=== PATIENT | male | born 1935 | race Caucasian/White ===

== ENCOUNTER 2019-07-06 13:35 | Emergency (ER) | payer MEDICARE, SELFPAY ==
[2019-07-06] VITALS (19 sets, daily range): BP systolic 157–182; BP diastolic 58–76; PULSE 64–75; RESP 11–24; TEMP 36.8; O2SAT 97–100
--- NOTE | ~2019-07-06 | CT_ITS ---
EXAMINATION: CT brain wo con DATE: 07/06/2019 14:48 INDICATION: Syncope. Fall. Dizziness. TECHNIQUE: Computed tomography (CT) of the head was performed without intravenous contrast. The dose- length product was 681.00 mGy-cm. Automated exposure control and iterative reconstruction technique w ere employed. COMPARISON: CT dated 08/26/2018 FINDINGS: No acute intracranial hemorrhage, infarction, mass or mass effect. No ventriculomegaly or m idline shift. Basilar cisterns are patent. There are scattered mild periventricular and subcortical w darryl matter changes, most likely related to small vessel ischemic disease (microangiopathy). Mild gen eralized atrophy. There is mild ethmoid and right maxillary mucosal thickening. Mastoids are pneumati zed. No depressed skull fractures. IMPRESSION: 1. No acute intracranial abnormality. 2: Chronic age-related findings. Reviewed, dictated and finalized at location A.
--- NOTE | 2019-07-06 13:41 | ECG_ITS ---
Measurements Intervals [place] Rate: 71 P: 34 [place]: 180 QRS: -9 QRSD: 94 T: 21 QT: 392 QTc: 428 Interpretive Statements SINUS RHYTHM BASELINE WANDER- II, III, V4 NORMAL ECG Electronically Signed On 07-06-2019 14:05:23 CDT by Andrea Jones D.O.
[2019-07-06 14:04] LABS: Basophils Percent Auto 0.5 % (0.2-1.2); Eosinophils Absolute Auto 0.1 K/mm3 (0-0.3); Eosinophils Percent Auto 1.5 % (0-4.4); Hematocrit 33.4 % (42.0-52.0); Hemoglobin 11.2 g/dL (14.0-18.0); Immature Granulocyte Absolute 0.02 K/mm3 (0.00-0.031); Immature Granulocyte Percent A 0.3 % (0-0.5); Lymphocytes Absolute Auto 1.32 K/mm3 (0.9-3.2); Lymphocytes Percent Auto 20.3 % (18.3-44.2); Mean Corpuscular HGB Conc 33.5 g/dl (32-36); Mean Corpuscular Hemoglobin 33.9 pg (26-34); Mean Corpuscular Volume 101.2 fl (80-100); Mean Platelet Volume 10.9 fl (7.4-10.4); Monocytes Absolute Auto 0.7 K/mm3 (0.1-0.6); Monocytes Percent Auto 11.1 % (2.6-8.5); Neutrophils Absolute Auto 4.3 K/mm3 (1.3-6.7); Neutrophils Percent Auto 66.3 % (45.5-73.1); Platelet Count Result 209 k/mm3 (150-375); Red Cell Distribution Width 14.6 % (11.5-14.5); White Blood Count 6.5 K/mm3 (4.5-10.0)
--- NOTE | 2019-07-06 14:13 | ED.SYNCOPE ---
HPI - Syncope General Chief Complaint: Syncope Stated Complaint: Passed out Time Seen by Provider: 07/06/19 13:59 History of Present Illness HPI narrative: Patient presents with his granddaughter for fainting episode at home today. He has been having recurrent fainting episodes in the last month. His granddaughter attributes this to the recurrent diarrhea he has had in the last month. He only gets to the bathroom half of the time. He has had no fever nausea vomiting or abdominal pain with the diarrhea. He had no chest pain nausea shortness of breath or diaphoresis prior to fainting today. His granddaughter reports that he was sweating when she got him after he fainted today. He did not hurt himself he slumped against the wall and fell slowly to the floor. He has had dizziness in the last several months intermittently and this is getting worse. He has had no recent illness he had a slight injury couple days ago when he fell out of bed and bruised his right forearm. He has slight dementia. He has been getting increasingly weak and has a tremor that started a couple months ago. His a couple months ago and his granddaughter attributes his new symptoms to stress. He denies chest pain abdominal pain back pain muscle aches or sores. MD complaint: felt faint Onset (ago): hour(s) -: minutes(s) Description of event: incontinence Prodromal symptoms: lightheaded and vertigo Witnessed: No Context: standing up Injuries sustained associated with event: none Current symptoms: none Related Data Home Medications Medication Instructions Recorded Confirmed PreserVision AREDS-2 1 BYMOUTH BIDPC 07/06/19 loperamide 2 mg PRN 07/06/19 sertraline 25 mg PO DAILY 07/06/19 Allergies Allergy/AdvReac Type Severity Reaction Status Date / Time No Known Allergies Allergy Verified 07/06/19 15:24 Review of Systems Review of Systems: Narrative: CONSTITUTIONAL: Denies fever, chills, or sweats. EYES: Denies visual changes, redness, or discharge. ENT: Denies rhinorrhea, congestion, sore throat, or otalgia. CARDIOVASCULAR: Denies chest pain, palpitations, or edema. RESPIRATORY: Denies cough or dyspnea. GASTROINTESTINAL: Denies abdominal pain, nausea, vomiting, or diarrhea. GENITOURINARY: Denies dysuria or hematuria. SKIN: Denies rash or itching. MUSCULOSKELETAL: Denies back pain, joint pain, or myalgia. NEUROLOGIC: Denies headache, numbness, or weakness. PSYCHIATRIC: Denies anxiety or depression. Constitutional: Constitutional: Reports weakness Respiratory: Respiratory: Denies cough and Denies dyspnea Gastrointestinal: Gastrointestinal: Denies abdominal pain, Reports diarrhea and Denies nausea Genitourinary: Genitourinary: Reports urinary incontinence Musculoskeletal: Musculoskeletal: Denies back pain and Denies joint swelling Neurologic: Reports confusion, Reports dizziness, Reports syncope, Denies focal weakness and Reports weakness PMFSH Past Medical History Medical History Dementia Hypertension TIA (transient ischemic attack) Surgical History Surgical History History of cholecystectomy Hx of cataract surgery Family History Family History Mother Hypertension Family history of pancreatic cancer Social History Social History Smoking status: Never smoker Alcohol intake: current Drinks per week: 1 Substance use: never Substance use type: does not use Gender identity (if verbalized by the patient): Male Exam Narrative: Exam Narrative: GENERAL: Well-appearing, well-nourished, and in no acute distress. HEAD: Normocephalic, atraumatic. EYES: PERRLA and EOMI. ENT: Nares clear, no rhinorrhea or epistaxis. Mucous membranes moist. NECK: Supple. CHEST: Clear to auscultation. No respiratory distress. HEA
[2019-07-06 14:22] LABS: Blood Urea Nitrogen 24 mg/dL (9-20); Calcium 8.5 mg/dL (8.4-10.2); Carbon Dioxide 25 mmol/L (22-30); Chloride 108 mmol/L (98-107); Estimated CRCL calculation 35 ml/min; Estimated Glomerular Filt Rate 45; Glucose 92 mg/dL (75-110); Potassium 3.5 mmol/L (3.4-5.0); Sodium 139 mmol/L (137-145)
--- NOTE | 2019-07-06 14:41 | PC.NURSE ---
Pt states he was on the way to the lab and had syncopal episode. Pt states this is the second episode in the last month. Pt did not know he had blood in stool but when samples taken to lab they told him he had blood in his stool. Pt states he has been having diarrhea x 1 month. Pt is A&Ox4.Pt has call light in reach
[2019-07-06 16:03] LABS: Troponin I < 0.012 ng/mL (0.000-0.034)
== END 2019-07-06 16:33 | disposition home or self-care (01) ==
PROVIDERS: Emergency Medicine; Emergency Provider Emergency Medicine; PCP Family Medicine
DX: R55 Syncope and collapse (principal); R19.7 Diarrhea, unspecified; F03.90 Unspecified dementia, unspecified severity, without behavioral disturbance, psychotic disturbance, mood disturbance, and anxiety; R42 Dizziness and giddiness; I10 Essential (primary) hypertension; Z86.73 Personal history of transient ischemic attack (TIA), and cerebral infarction without residual deficits; Z98.49 Cataract extraction status, unspecified eye
CPT/HCPCS: 36415; 70450; 80048; 84484; 85025; 86850; 86900; 86901; 93005; 99284

== ENCOUNTER 2020-01-15 12:22 | Emergency (ER) | payer MEDICARE, SELFPAY ==
--- NOTE | ~2020-01-15 | XR_ITS ---
EXAMINATION: XR elbow LT min 3V DATE: 01/15/2020 13:11 INDICATION: Left elbow pain. TECHNIQUE: 4 views of left elbow were obtained. COMPARISON: None. FINDINGS: Bone alignment is normal. No fracture. Joint spaces are well maintained. There is an enthes ophyte at medial humeral epicondyle. There is no elbow joint effusion. IMPRESSION: 1. No fracture. Reviewed, dictated and finalized at location A. IMPRESSION: 1. No fracture.
--- NOTE | ~2020-01-15 | XR_ITS ---
EXAMINATION: XR hand LT min 3V DATE: 01/15/2020 13:11 INDICATION: Left hand pain. Fall. TECHNIQUE: 3 views of left hand were obtained. COMPARISON: None. FINDINGS: There is dorsal dislocation of first distal phalanx with respect to the proximal phalanx. N o fracture. 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 There is mild osteoarthrit is of most of the metacarpophalangeal joints and interphalangeal joints. There is moderate osteoarthr itis of second distal interphalangeal joint. IMPRESSION: 1. Dislocation of first interphalangeal joint. 2. Polyarticular osteoarthritis. Reviewed, dictated and finalized at location A.
--- NOTE | ~2020-01-15 | CT_ITS ---
EXAMINATION: CT brain wo con DATE: 01/15/2020 13:00 INDICATION: Status post fall. Confusion. TECHNIQUE: Computed tomography (CT) of the head was performed without intravenous contrast. The dose- length product was 605.33 mGy-cm. Automated exposure control and iterative reconstruction technique w ere employed. COMPARISON: CT dated 07/06/2019 FINDINGS: Mild generalized atrophy. 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 Basilar cistern s are patent. No acute intracranial hemorrhage, infarction, mass or mass effect. There is mild mucosa l thickening of the ethmoid air cells. Mastoids are pneumatized. No depressed skull fractures. There is intracranial atherosclerosis. IMPRESSION: 1. No acute intracranial abnormality. No significant change. Reviewed, dictated and finalized at location B.
--- NOTE | ~2020-01-15 | XR_ITS ---
EXAMINATION: XR finger 1st LT min 2V DATE: 01/15/2020 14:32 INDICATION: Left thumb dislocation status post reduction. TECHNIQUE: 2 views of left thumb were obtained. COMPARISON: Left hand radiographs at 1:04 PM FINDINGS: Bone alignment is normal. No fracture. There is severe osteoarthritis of first carpometacar pal joint. IMPRESSION: 1. Normal alignment of first interphalangeal joint status post reduction. Reviewed, dictated and finalized at location A.
[2020-01-15 12:34] VITALS: BP 205/81; PULSE 82; RESP 18; TEMP 36.4; O2SAT 99
--- NOTE | 2020-01-15 13:02 | ED.FALL ---
HPI - Fall General Chief Complaint: Fall <Aquiles Christopher MD - Last Filed: 01/15/20 14:59> Stated Complaint: fall <Aquiles Christopher MD - Last Filed: 01/15/20 14:59> Time Seen by Provider: 01/15/20 12:23 <Aquiles Christopher MD - Last Filed: 01/15/20 14:59> Source: patient <Aquiles Christopher MD - Last Filed: 01/15/20 14:59> Mode of arrival: ambulatory <Aquiles Christopher MD - Last Filed: 01/15/20 14:59> Limitations: no limitations <Aquiles Christopher MD - Last Filed: 01/15/20 14:59> History of Present Illness HPI Narrative: Patient is an 84-year-old male complaining of had pain, laceration to his left thumb and left elbow pain after he tripped and fall at home. Patient states that he tried to break his fall that is why he has a cut on his left hand. Patient was able to ambulate after the fall. Patient denies any neck pain, chest pain, back pain, pelvic pain, hip pain or any other extremity pain/injury. <Aquiles Christopher MD - Last Filed: 01/15/20 14:59> Related Data Home Medications: Home Medications Medication Instructions Recorded Confirmed PreserVision AREDS-2 1 BYMOUTH BID 07/06/19 12/08/19 fludrocortisone 0.1 mg tablet 0.1 mg PO DAILY 09/01/19 12/08/19 quetiapine 25 mg tablet 25 mg PO DAILY tablet 09/01/19 12/08/19 <Aquiles Christopher MD - Last Filed: 01/15/20 14:59> Allergies/Adverse Reactions: Allergies Allergy/AdvReac Type Severity Reaction Status Date / Time No Known Allergies Allergy Verified 12/08/19 11:07 <Aquiles Christopher MD - Last Filed: 01/15/20 14:59> Review of Systems Review of Systems: All systems reviewed & are unremarkable except as noted in HPI and below <Aquiles Christopher MD - Last Filed: 01/15/20 14:59> Constitutional: Constitutional: Denies body ache(s), Denies chills, Denies excessive sweating, Denies fatigue, Denies fever(s), Denies headache(s), Denies lethargy, Denies malaise, Denies weakness and Denies weight loss <Aquiles Christopher MD - Last Filed: 01/15/20 14:59> Eyes: Eyes: Denies blurry vision, Denies change in vision and Denies loss of vision <Aquiles Christopher MD - Last Filed: 01/15/20 14:59> ENT: Denies dizziness, Denies ear discharge, Denies headache(s), Denies lip swelling, Denies epistaxis, Denies nasal congestion, Denies neck pain, Denies throat swelling and Denies tongue swelling <Aquiles Christopher MD - Last Filed: 01/15/20 14:59> Cardiovascular: Cardiovascular: Denies chest pain, Denies chest pain at rest, Denies chest pain with activity, Denies diaphoresis, Denies rapid heart rate, Denies edema, Denies irregular heart rhythm, Denies lightheadedness, Denies palpitations, Denies dyspnea and Denies dyspnea on exertion <Aquiles Christopher MD - Last Filed: 01/15/20 14:59> Respiratory: Respiratory: Denies chest congestion, Denies cough, Denies hemoptysis, Denies dyspnea and Denies dyspnea on exertion <Aquiles Christopher MD - Last Filed: 01/15/20 14:59> Gastrointestinal: Gastrointestinal: Denies abdominal pain, Denies melena, Denies hematochezia, Denies diarrhea, Denies nausea, Denies vomiting and Denies hematemesis <Aquiles Christopher MD - Last Filed: 01/15/20 14:59> Musculoskeletal: Musculoskeletal: Denies abnormal gait, Denies deformity, Denies joint swelling, Denies limited range of motion, Denies neck pain and Denies numbness <Aquiles Christopher MD - Last Filed: 01/15/20 14:59> Neurologic: Denies Abnormal speech present, Denies abnormal gait, Denies confusion, Denies dizziness, Denies headache(s), Denies focal weakness, Denies loss of vision, Denies numbness, Denies Other visual disturbances, Denies Sensory deficit (Neuro) and Denies weakness <Aquiles Christopher MD - Last Filed: 01/15/20 14:59> Psychiatric: Psychiatric: Denies confusion, Denies depression, Denies auditory hallucinations, Denies homicidal ideation and Denies suicidal ideation <Aquiles Christopher MD - Last Filed: 01/15/20 14:59> Endoc
[2020-01-15] MEDS: TETANUS,DIPHTHERIA,AC PERTUSSIS ADULT (0.5 ML) BOOSTRIX IM (13:12)
== END 2020-01-15 15:24 | disposition home or self-care (01) ==
LOC: ANHED 12:37
PROVIDERS: Emergency Provider Emergency Medicine; PCP Family Medicine
DX: S63.125A Dislocation of interphalangeal joint of left thumb, initial encounter (principal); S61.012A Laceration without foreign body of left thumb without damage to nail, initial encounter; S09.90XA Unspecified injury of head, initial encounter; Z86.73 Personal history of transient ischemic attack (TIA), and cerebral infarction without residual deficits; F03.90 Unspecified dementia, unspecified severity, without behavioral disturbance, psychotic disturbance, mood disturbance, and anxiety; I10 Essential (primary) hypertension; Z98.49 Cataract extraction status, unspecified eye; Z23 Encounter for immunization; W01.0XXA Fall on same level from slipping, tripping and stumbling without subsequent striking against object, initial encounter
CPT/HCPCS: 12001; 26770; 70450; 73080; 73130; 73140; 90471; 90715; 99285

== ENCOUNTER 2020-02-01 10:26 | Emergency (ER) | payer MEDICARE, SELFPAY ==
[2020-02-01 10:33] VITALS: BP 199/76; PULSE 86; RESP 16; TEMP 36.6; O2SAT 98
--- NOTE | 2020-02-01 10:53 | ED.WOUNDLAC ---
HPI - Wound/Laceration General Chief Complaint: Wound/Laceration Stated Complaint: remove stitches Source: patient Mode of arrival: ambulatory Limitations: no limitations History of Present Illness HPI narrative: Patient is an 84-year-old male who presents with request of suture removal. Patient reports sutures placed in left thumb on 01/14 after injuring hand. Wound is well-healed, 5 sutures in thumb. He denies pain. He denies other complaints. Related Data Home Medications Medication Instructions Recorded Confirmed fludrocortisone 0.1 mg tablet 0.1 mg PO DAILY 09/01/19 02/01/20 quetiapine 25 mg tablet 25 mg PO 1800 tablet 09/01/19 02/01/20 lisinopril 5 mg PO DAILY 02/01/20 02/01/20 Allergies Allergy/AdvReac Type Severity Reaction Status Date / Time No Known Allergies Allergy Verified 02/01/20 10:43 Review of Systems Review of Systems: Narrative: CONSTITUTIONAL: Denies fever, chills, or sweats. EYES: Denies visual changes, redness, or discharge. ENT: Denies rhinorrhea, congestion, sore throat, or otalgia. CARDIOVASCULAR: Denies chest pain, palpitations, or edema. RESPIRATORY: Denies cough or dyspnea. GASTROINTESTINAL: Denies abdominal pain, nausea, vomiting, or diarrhea. GENITOURINARY: Denies dysuria or hematuria. SKIN: Sutures in left thumb MUSCULOSKELETAL: Denies back pain, joint pain, or myalgia. NEUROLOGIC: Denies headache, numbness, dizziness, or weakness. PSYCHIATRIC: Denies anxiety or depression. [facility] Past Medical History Medical History (Updated 02/01/20 @ 10:59 by MATY Phelan) Dementia Hypertension TIA (transient ischemic attack) Surgical History Surgical History History of cholecystectomy Hx of cataract surgery Family History Family History Mother Hypertension Family history of pancreatic cancer Social History Social History Smoking status: Never smoker Alcohol intake: current Drinks per week: 1 Substance use: never Substance use type: does not use Gender identity (if verbalized by the patient): Male Exam Narrative: Exam Narrative: GENERAL: Well-appearing, well-nourished, and in no acute distress. HEAD: Normocephalic, atraumatic. EYES: No redness or drainage. ENT: Mucous membranes pink and moist. CHEST: No respiratory distress. s. EXTREMITIES: Normal range of motion. No edema. SKIN: 5 sutures removed from left thumb, wound well-healed, no erythema or tenderness, good capillary refill NEURO: No focal deficits. Alert and oriented x3. Gait steady. PSYCH: Normal affect. No signs of depression or anxiety. Course Vital Signs Vital signs: Vital Signs Temperature 36.6 C 02/01/20 10:33 Pulse Rate 86 02/01/20 10:33 Respiratory Rate 16 02/01/20 10:33 Blood Pressure 199/76 H 02/01/20 10:33 Pulse Oximetry 98 02/01/20 10:33 Temperature 36.6 C 02/01/20 10:33 Pulse Rate 86 02/01/20 10:33 Respiratory Rate 16 02/01/20 10:33 Blood Pressure 199/76 H 02/01/20 10:33 Pulse Oximetry 98 02/01/20 10:33 Reviewed. Patient has been instructed to follow-up with his PCP regarding his blood pressure. Procedures Other Procedure Procedure 1: Other Procedure: 5 sutures removed from left thumb, wound well-healed this time, good capillary refill. MDM - Wound/Laceration MDM Narrative Medical decision making narrative: Sutures removed to left thumb at this time. Patient's wound is well-healed. Good capillary refill. Patient denies pain. Patient is stable for discharge to home with outpatient follow-up as needed. Critical Care Time Critical Care Time Critical Care Time: No Discharge Plan Discharge Clinical Impression: Visit for suture removal Patient Disposition: Home, Self-Care Condition: Stable Instructions: Antibiotic Form Additional Instructio
== END 2020-02-01 11:03 | disposition home or self-care (01) ==
PROVIDERS: Emergency Provider Nurse Practitioner
DX: S61.012D Laceration without foreign body of left thumb without damage to nail, subsequent encounter (principal); X58.XXXD Exposure to other specified factors, subsequent encounter; F03.90 Unspecified dementia, unspecified severity, without behavioral disturbance, psychotic disturbance, mood disturbance, and anxiety; I10 Essential (primary) hypertension; Z86.73 Personal history of transient ischemic attack (TIA), and cerebral infarction without residual deficits
CPT/HCPCS: 99211; G0463

== ENCOUNTER 2020-03-25 12:47 | Emergency (ER) | payer MEDICARE, SELFPAY ==
--- NOTE | ~2020-03-25 | CT_ITS ---
EXAMINATION: CT brain wo con DATE: 03/25/2020 13:37 INDICATION: Head injury post fall on ice TECHNIQUE: Computed tomography (CT) of the head was performed without intravenous contrast. Sagittal and coronal reconstructions were performed. Automated exposure control and iterative reconstruction t echnique were employed. The dose-length product was 681.00 mGy-cm. COMPARISON: head CT dated 01/15/2020 FINDINGS: No fracture. No acute intracranial hemorrhage, acute infarction or abnormal extra axial fluid collect ion. There is mild scattered white matter hypoattenuation consistent with chronic small vessel ischem ic disease. Symmetric prominence of the sulci consistent with mild to moderate age-appropriate diffus e cerebral volume loss. Ventricles are normal and symmetric. No mass/mass effect. Changes of bilatera l intraocular lens replacement. The orbits and mastoid air cells are normal. Thickened sclerotic wall s of the right maxillary sinus consistent with chronic sinusitis. IMPRESSION: 1. No fracture or acute intracranial process. 2. Age-related changes including mild to moderate diffuse volume loss and mild scattered white matter hypoattenuation consistent with chronic small vessels ischemic disease. Reviewed, dictated and finalized at location A. LE CLEANER IMPRESSION: 1. No fracture or acute intracranial process. 2. Age-related changes including mild to moderate diffuse volume loss and mild scattered white matter hypoattenuation consistent with chronic small vessels is chemic disease.
--- NOTE | ~2020-03-25 | CT_ITS ---
EXAMINATION: CT cervical spine wo con DATE: 03/25/2020 13:37 INDICATION: Fall with head injury TECHNIQUE: Computed tomography (CT) of the cervical spine was performed without intravenous contrast. Automated exposure control and iterative reconstruction technique were employed. The dose-length pro duct was 544.78 mGy-cm. COMPARISON: None FINDINGS: Straightening of the normal cervical lordosis. Vertebral body heights are normal. No acute fracture. Severe disc height loss with both anterior and bilateral posterior spinal fusion at C6-C7. Additional severe disc height loss at C5-C6 with severe bilateral uncovertebral osteoarthritis. Mild disc heigh t loss at C2-C3 through C4-C5 and at C7-T1. Additional bilateral anterior and posterior spinal fusion at C3-C4 and fusion across the right facet joint at C4-C5. Mild central canal stenosis resulting fro m posterior disc osteophyte complex at C5-C6. Moderate to severe facet osteoarthritis at the remainin g unfused cervical facet joints. Mild to moderate bilateral neural foraminal stenosis most prominent on the right at C6-7 and bilaterally at C5-C6. Multiple tiny calcifications at the left and right sub mandibular regions likely representing sialoliths within atrophic bilateral submandibular glands. Lik saw benign subcentimeter low-attenuation right thyroid nodule. Cervical soft tissues are otherwise un remarkable. Visualized apices of the lungs are clear. IMPRESSION: 1. Severe cervical spondylosis. No acute osseous abnormality. Reviewed, dictated and finalized at location A. ER TAPER
[2020-03-25 13:08] VITALS: BP 183/86; PULSE 82; RESP 18; TEMP 36.5; O2SAT 100
[2020-03-25 14:01] VITALS: BP 230/84; PULSE 84; RESP 16; O2SAT 99
--- NOTE | 2020-03-25 14:34 | ECG_ITS ---
Measurements Intervals [place] Rate: 86 P: 10 NV: 190 QRS: -10 QRSD: 99 T: -1 QT: 380 QTc: 455 Interpretive Statements SINUS RHYTHM DELAYED PRECORDIAL R/S TRANSITION BORDERLINE T WAVE ABNORMALITY- INFERIOR LEADS BASELINE ARTIFACT- I, II, AVL, V3-V6 BORDERLINE ECG Electronically Signed On 03-25-2020 15:21:29 BAIT PAINTER by Andrea Jones D.O.
[2020-03-25 15:10] LABS: Basophils Percent Auto 0.6 % (0.2-1.2); Eosinophils Absolute Auto 0.2 K/mm3 (0-0.3); Eosinophils Percent Auto 2.7 % (0-4.4); Hematocrit 30.6 % (42.0-52.0); Hemoglobin 10.5 g/dL (14.0-18.0); Immature Granulocyte Absolute 0.01 K/mm3 (0.00-0.031); Immature Granulocyte Percent A 0.2 % (0-0.5); Lymphocytes Percent Auto 49.8 % (18.3-44.2); Mean Corpuscular HGB Conc 34.3 g/dl (32-36); Mean Corpuscular Hemoglobin 34.3 pg (26-34); Mean Platelet Volume 10.6 fl (7.4-10.4); Monocytes Absolute Auto 0.4 K/mm3 (0.1-0.6); Monocytes Percent Auto 6.3 % (2.6-8.5); Neutrophils Absolute Auto 2.7 K/mm3 (1.3-6.7); Neutrophils Percent Auto 40.4 % (45.5-73.1); Platelet Count Result 237 k/mm3 (150-375); Red Blood Count 3.06 M/mm3 (4.6-6.20); White Blood Count 6.6 K/mm3 (4.5-10.0)
[2020-03-25 15:21] VITALS: BP 228/89; PULSE 93; RESP 18; O2SAT 100
[2020-03-25 15:24] LABS: Anion Gap 6 mmol/L (8-16); Blood Urea Nitrogen 21 mg/dL (9-20); Calcium 8.9 mg/dL (8.4-10.2); Carbon Dioxide 27 mmol/L (22-30); Chloride 108 mmol/L (98-107); Estimated CRCL calculation 46 ml/min; Estimated Glomerular Filt Rate > 60; Glucose 102 mg/dL (75-110); Sodium 141 mmol/L (137-145)
[2020-03-25] MEDS: hydrALAZINE HCL 20 MG/ML VIAL 10 MG IV PUSH (15:24)
[2020-03-25 15:34] LABS: Troponin I < 0.012 ng/mL (0.000-0.034)
[2020-03-25 16:05] VITALS: BP 184/86; PULSE 78; RESP 18; O2SAT 100
--- NOTE | 2020-03-25 16:31 | ED.GENADULT ---
HPI - General Adult General Chief complaint: Fall Stated complaint: fall on ice Time Seen by Provider: 03/25/20 14:06 History of Present Illness HPI narrative: Patient is an 84-year-old male who presents ER after falling in his front yard. He took his dog out to use the restroom. It was reported that he struck his head. No reported loss of consciousness. No obvious trauma. Patient has dementia and has difficulty giving a history. He denies any pain at this time. He does report that he felt like he had a corn husk stuck in his throat earlier but is now gone. His blood pressure is elevated. He denies taking his home medications this morning. Related Data Home Medications Medication Instructions Recorded Confirmed fludrocortisone 0.1 mg tablet 0.1 mg PO DAILY 09/01/19 03/23/20 quetiapine 25 mg tablet 25 mg PO 1800 tablet 09/01/19 03/23/20 lisinopril 5 mg PO DAILY 02/01/20 03/23/20 Allergies Allergy/AdvReac Type Severity Reaction Status Date / Time No Known Allergies Allergy Verified 02/02/20 10:57 Review of Systems Review of Systems: ROS unobtainable: Yes unobtainable due to mental status PMFSH Past Medical History Medical History (Updated 03/25/20 @ 16:39 by Ag Mchugh MD) Dementia Hypertension TIA (transient ischemic attack) Weight loss Surgical History Surgical History History of cholecystectomy Hx of cataract surgery Family History Family History Mother Hypertension Family history of pancreatic cancer Social History Social History Smoking status: Never smoker Alcohol intake: current Drinks per week: 1 Substance use: never Substance use type: does not use Gender identity (if verbalized by the patient): Male Exam Narrative: Exam Narrative: GENERAL: Well-appearing, well-nourished, and in no acute distress. HEAD: Normocephalic, atraumatic. EYES: PERRL and EOMI. ENT: Mucous membranes moist. CHEST: Clear to auscultation. No respiratory distress. HEART: Regular rate and rhythm. Normal peripheral pulses. EXTREMITIES: Normal range of motion. No edema. NEURO: Alert and oriented x2. PSYCH: Normal mood and affect. Course Course Emergency Course: Unremarkable work-up. Blood pressure improved with some hydralazine. Recommend taking home meds. Needs follow-up with PCP as it appears he has chronically elevated blood pressures. Vital Signs Vital signs: Vital Signs Temperature 97.7 F 03/25/20 13:08 Pulse Rate 82 03/25/20 13:08 Respiratory Rate 18 03/25/20 13:08 Blood Pressure 183/86 H 03/25/20 13:08 Pulse Oximetry 100 03/25/20 13:08 Temperature 97.7 F 03/25/20 13:08 Pulse Rate 78 03/25/20 16:05 Respiratory Rate 18 03/25/20 16:05 Blood Pressure 184/86 H 03/25/20 16:05 Pulse Oximetry 100 03/25/20 16:05 Medical Decision Making Vital Signs Vital Signs: Vital Signs Temperature 97.7 F 03/25/20 13:08 Pulse Rate 82 03/25/20 13:08 Respiratory Rate 18 03/25/20 13:08 Blood Pressure 183/86 H 03/25/20 13:08 Pulse Oximetry 100 03/25/20 13:08 Temperature 97.7 F 03/25/20 13:08 Pulse Rate 78 03/25/20 16:05 Respiratory Rate 18 03/25/20 16:05 Blood Pressure 184/86 H 03/25/20 16:05 Pulse Oximetry 100 03/25/20 16:05 Lab Data Result diagrams: 03/25/20 15:00 03/25/20 15:00 Labs: Lab Results 03/25/20 03/25/20 Range/Units 15:00 15:00 WBC 6.6 (4.5-10.0) K/mm3 RBC 3.06 L (4.6-6.20) M/mm3 Hgb 10.5 L (14.0-18.0) g/dL Hct 30.6 L (42.0-52.0) % MCV 100.0 (80-100) fl MCH 34.3 H (26-34) pg MCHC 34.3 (32-36) g/dl RDW 16.0 H (11.5-14.5) % Plt Count 237 (150-375) k/mm3 MPV 10.6 H (7.4-10.4) fl Immature Gran % (Auto) 0.2 (0-0.5) % Neut % (Auto) 40.4 L (45.5-73.1) % Lymph % (A
[2020-03-25 17:11] VITALS: BP 184/76; PULSE 78; RESP 16; O2SAT 98
== END 2020-03-25 17:12 | disposition home or self-care (01) ==
PROVIDERS: Emergency Provider Emergency Medicine
DX: I10 Essential (primary) hypertension (principal); S09.90XA Unspecified injury of head, initial encounter; F03.90 Unspecified dementia, unspecified severity, without behavioral disturbance, psychotic disturbance, mood disturbance, and anxiety; Z86.73 Personal history of transient ischemic attack (TIA), and cerebral infarction without residual deficits; Z98.49 Cataract extraction status, unspecified eye; M47.812 Spondylosis without myelopathy or radiculopathy, cervical region; R94.31 Abnormal electrocardiogram [ECG] [EKG]; W00.0XXA Fall on same level due to ice and snow, initial encounter
CPT/HCPCS: 36415; 70450; 72125; 80048; 84484; 85025; 93005; 96374; 99284; J0360

== ENCOUNTER 2020-03-25 19:51 | Inpatient (IN) | payer MEDICARE, SELFPAY ==
[2020-03-25] VITALS (20 sets, daily range): BP systolic 103–169; BP diastolic 53–70; PULSE 65–88; RESP 13–20; TEMP 36.6–36.8; O2SAT 96–100; BMI 24.1
--- NOTE | ~2020-03-25 | XR_ITS ---
EXAMINATION: XR chest 2V DATE: 03/25/2020 20:20 INDICATION: Transient alteration of awareness, hypertension TECHNIQUE: AP and lateral views of the chest are obtained. COMPARISON: 08/26/2018 FINDINGS: The lungs are free of acute opacities. There is no pleural effusion or pneumothorax. The ca rdiomediastinal silhouette is normal. There are bridging osteophytes at multiple levels in the spine, consistent with diffuse idiopathic skeletal hyperostosis (DISH). IMPRESSION: 1. No acute cardiopulmonary abnormality. Reviewed, dictated and finalized at location A. MANUFACTURING LEADER
--- NOTE | ~2020-03-25 | CT_ITS ---
EXAMINATION: CT brain wo con DATE: 03/26/2020 04:04 INDICATION: Head trauma. Syncope. TECHNIQUE: Computed tomography (CT) of the head was performed without intravenous contrast. Sagittal and coronal reconstructions were performed. The mA was adjusted according to patient size. Iterative reconstruction technique was employed. The dose-length product was 681.00 mGy-cm. COMPARISON: head CT dated 03/25/2020 FINDINGS: No acute intracranial hemorrhage, acute infarction or abnormal extra axial fluid collection. There is mild scattered white matter hypoattenuation consistent with chronic small vessel ischemic disease. S ymmetric prominence of the sulci consistent with mild to moderate age-appropriate diffuse cerebral vo lume loss. Ventricles are normal and symmetric. No mass/mass effect. Changes of bilateral intraocular lens replacement. The orbits and mastoid air cells are normal. Mild mucosal thickening in the right maxillary sinus with demonstrates thickened sclerotic smith consistent with chronic sinusitis and wit h resection of portion of the medial wall. IMPRESSION: 1. No acute intracranial process. 2. Age-related changes including age-appropriate mild to moderate diffuse volume loss and mild scatte red white matter hypoattenuation consistent with chronic small vessel ischemic disease. Reviewed, dictated and finalized at location A. PT READER IMPRESSION: 1. No acute intracranial process. 2. Age-related changes including age-appropriate mild to moderate diffuse volum e loss and mild scattered white matter hypoattenuation consistent with chronic small vessel ischemic disease.
--- NOTE | 2020-03-25 20:01 | ECG_ITS ---
Measurements Intervals [place] Rate: 68 P: 9 WV: 151 QRS: -8 QRSD: 106 T: -9 QT: 431 QTc: 459 Interpretive Statements SINUS RHYTHM VENTRICULAR PREMATURE COMPLEX T WAVE ABNORMALITY IN ANTEROLATERAL LEADS- CONSIDER ISCHEMIA BASELINE ARTIFACT- I, II, III, AVR, AVL, AVF, V1-V3 ABNORMAL ECG Electronically Signed On 03-26-2020 7:12:50 SHAFTING WORKER by Andrea Jones D.O.
--- NOTE | 2020-03-25 20:13 | PC.NURSE ---
Patient being taken to xray.
[2020-03-25] MEDS: SODIUM CHLORIDE 0.9% IV 1,000 ML 999 ML IV CONT (20:20)
[2020-03-25 20:53] LABS: Basophils Percent Auto 0.4 % (0.2-1.2); Eosinophils Absolute Auto 0.1 K/mm3 (0-0.3); Hematocrit 28.6 % (42.0-52.0); Hemoglobin 9.8 g/dL (14.0-18.0); Immature Granulocyte Absolute 0.01 K/mm3 (0.00-0.031); Immature Granulocyte Percent A 0.1 % (0-0.5); Lymphocytes Percent Auto 33.8 % (18.3-44.2); Mean Corpuscular HGB Conc 34.3 g/dl (32-36); Mean Corpuscular Volume 102.1 fl (80-100); Mean Platelet Volume 10.4 fl (7.4-10.4); Monocytes Absolute Auto 0.6 K/mm3 (0.1-0.6); Monocytes Percent Auto 8.6 % (2.6-8.5); Neutrophils Absolute Auto 3.9 K/mm3 (1.3-6.7); Neutrophils Percent Auto 55.1 % (45.5-73.1); Platelet Count Result 229 k/mm3 (150-375); Red Cell Distribution Width 15.9 % (11.5-14.5); White Blood Count 7.1 K/mm3 (4.5-10.0)
[2020-03-25 21:05] LABS: Anion Gap 4 mmol/L (8-16); Blood Urea Nitrogen 22 mg/dL (9-20); Calcium 8.3 mg/dL (8.4-10.2); Carbon Dioxide 29 mmol/L (22-30); Chloride 108 mmol/L (98-107); Estimated Glomerular Filt Rate > 60; Glucose 147 mg/dL (75-110); Potassium 3.6 mmol/L (3.4-5.0); Sodium 141 mmol/L (137-145)
[2020-03-25 21:18] LABS: Troponin I 0.015 ng/mL (0.000-0.034)
--- NOTE | 2020-03-25 21:29 | ED.GENADULT ---
HPI - General Adult General Chief complaint: Syncope Stated complaint: fall Time Seen by Provider: 03/25/20 20:01 History of Present Illness HPI narrative: Patient is an 84-year-old male who presents ER with syncope at home. Per patient's son patient was walking at their house when he began having dizziness. Reported he was feeling dizzy and son could tell he was unsteady. He sat down in a chair. Reports he tried to wait it out and they stood up again and he got even more unsteady and sat down and lost consciousness for 15 to 20 minutes. Son was scared that he was dying. Patient reported no pain prior to that point. Patient been seen earlier in the day after a slip and fall while outside. He was found to be hypertensive initially received some hydralazine prior to being discharged. Related Data Home Medications Medication Instructions Recorded Confirmed fludrocortisone 0.1 mg tablet 0.1 mg PO DAILY 09/01/19 03/23/20 quetiapine 25 mg tablet 25 mg PO 1800 tablet 09/01/19 03/23/20 lisinopril 5 mg PO DAILY 02/01/20 03/23/20 Allergies Allergy/AdvReac Type Severity Reaction Status Date / Time No Known Allergies Allergy Verified 03/25/20 20:02 Review of Systems Review of Systems: ROS unobtainable: Yes unobtainable due to mental status (dementia) PMFSH Past Medical History Medical History (Updated 03/25/20 @ 23:13 by Ag Mchugh MD) Dementia Hypertension TIA (transient ischemic attack) Weight loss Surgical History Surgical History History of cholecystectomy Hx of cataract surgery Family History Family History Mother Hypertension Family history of pancreatic cancer Social History Social History Smoking status: Never smoker Alcohol intake: never Drinks per week: 1 Substance use: never Substance use type: does not use Gender identity (if verbalized by the patient): Male Spiritual care concerns: No Exam Narrative: Exam Narrative: GENERAL: Well-appearing, well-nourished, and in no acute distress. HEAD: Normocephalic, atraumatic. EYES: PERRL and EOMI. CHEST: Clear to auscultation. No respiratory distress. HEART: Regular rate and rhythm. Normal peripheral pulses. ABDOMEN: Soft, nontender, nondistended. EXTREMITIES: Normal range of motion. No edema. SKIN: Warm, dry, no rash. NEURO: Alert and oriented x2-3. Course Course Emergency Course: Admit for observation. Vital Signs Vital signs: Vital Signs Temperature 97.8 F 03/25/20 19:51 Pulse Rate 72 03/25/20 19:51 Respiratory Rate 17 03/25/20 19:51 Blood Pressure 162/63 H 03/25/20 19:51 Pulse Oximetry 96 03/25/20 19:51 Temperature 97.9 F 03/25/20 22:44 Pulse Rate 76 03/25/20 22:44 Respiratory Rate 19 03/25/20 22:44 Blood Pressure 169/56 H 03/25/20 22:44 Pulse Oximetry 100 03/25/20 22:44 Medical Decision Making Vital Signs Vital Signs: Vital Signs Temperature 97.8 F 03/25/20 19:51 Pulse Rate 72 03/25/20 19:51 Respiratory Rate 17 03/25/20 19:51 Blood Pressure 162/63 H 03/25/20 19:51 Pulse Oximetry 96 03/25/20 19:51 Temperature 97.9 F 03/25/20 22:44 Pulse Rate 76 03/25/20 22:44 Respiratory Rate 19 03/25/20 22:44 Blood Pressure 169/56 H 03/25/20 22:44 Pulse Oximetry 100 03/25/20 22:44 Lab Data Result diagrams: 03/25/20 20:47 03/25/20 20:47 Labs: Lab Results 03/25/20 03/25/20 03/25/20 Range/Units 20:47 20:47 20:47 WBC 7.1 (4.5-10.0) K/mm3 RBC 2.80 L (4.6-6.20) M/mm3 Hgb 9.8 L (14.0-18.0) g/dL Hct 28.6 L (42.0-52.0) % MCV 102.1 H (80-100) fl MCH 35.0 H (26-34) pg MCHC 34.3 (32-36) g/dl RDW 15.9 H (11.5-14.5) % Plt Count 229 (150-375) k/mm3 MPV 10.4 (7.4-10.4) fl Immature Gran % (Auto) 0.1 (0-0.5
--- NOTE | 2020-03-25 22:57 | ADMGEN ---
This patient, Lico Calix, was admitted to Medical Room 245-. Patient/family oriented to hospital policies and general routines including ID bracelet, bed and alarms, visiting hours, pain management, procedures, bathroom and other care routines, personal items, smoking policy, room service/diet, and visiting hours. Information on how to activate the Rapid Response Team has been discussed. Patient/Family are encouraged to report perceived risks to care and to ask questions if they do not understand what they are told or what they should do.
[2020-03-26] VITALS (13 sets, daily range): BP systolic 102–187; BP diastolic 51–78; PULSE 79–104; RESP 15–20; TEMP 36.5–37.1; O2SAT 96–100
--- NOTE | 2020-03-26 01:57 | PM.IMHP ---
H&P: HPI History of Present Illness Date/Time: 03/26/20 01:57 Chief Complaint: Syncope Narrative: This is a pleasantly demented 84-year-old male with known chronic hypertension, hyperlipidemia, and depression who presented to the hospital this evening with an episode of syncope that occurred at home. Apparently the patient became dizzy at home sat in a chair and when he attempted to stand up he became very lightheaded and passed out for approximately 15 minutes. The patient's son who was the primary source of history related that he called EMS as he thought the patient was dying. The patient's history significant for him suffering a fall earlier yesterday during the day and suffered head trauma at that time. The patient was seen in the ER earlier yesterday and did have a CT scan done of his brain which was unremarkable at that time. Patient was treated with an IV fluid bolus this evening and we were asked to admit the patient to the hospital as he did not seem safe to go home this evening. On my encounter with the patient he is pleasantly confused and is only oriented to himself. He believes that he is currently in a motel and cannot answer any of my questions reliably. He has no complaints at this time. Review of Systems Review of Systems: All systems reviewed & are unremarkable except as noted in HPI and below PMFSH Past Medical History Medical History (Updated 03/26/20 @ 02:09 by Paulo Thomas MD) Dementia Hypertension TIA (transient ischemic attack) Weight loss Surgical History Surgical History History of cholecystectomy Hx of cataract surgery Family History Family History Mother Hypertension Family history of pancreatic cancer Social History Social History Smoking status: Never smoker Alcohol intake: never Drinks per week: 1 Substance use: never Substance use type: does not use Gender identity (if verbalized by the patient): Male Spiritual care concerns: No Meds Home Medications and Allergies Home Medications Medication Instructions Recorded Confirmed Type fludrocortisone 0.1 mg tablet 0.1 mg PO DAILY 09/01/19 03/25/20 History quetiapine 25 mg tablet 25 mg PO 1800 tablet 09/01/19 03/25/20 History atorvastatin 10 mg tablet 10 mg PO DAILY #90 tablet 10/13/19 03/25/20 Rx donepezil 5 mg tablet 5 mg PO HS #90 tablet 10/13/19 03/25/20 Rx omeprazole 40 mg capsule,delayed 40 mg PO DAILY #90 cap 10/13/19 03/25/20 Rx release sertraline 25 mg tablet 12.5 mg PO DAILY #45 tablet 10/13/19 03/25/20 Rx lisinopril 5 mg PO DAILY 02/01/20 03/25/20 History Allergies Allergy/AdvReac Type Severity Reaction Status Date / Time No Known Allergies Allergy Verified 03/26/20 00:11 Vital Signs Vital Signs - 24 hr 03/25/20 19:51 03/25/20 20:06 03/25/20 20:07 Temperature 36.6 C Pulse Rate 72 65 80 Respiratory Rate 17 15 Blood Pressure 162/63 H 168/68 H 103/53 L Pulse Oximetry 96 100 03/25/20 20:09 03/25/20 20:12 03/25/20 20:13 Temperature Pulse Rate 77 74 81 Respiratory Rate 13 20 20 Blood Pressure 168/68 H 140/54 L 103/53 L Pulse Oximetry 100 99 100 03/25/20 20:24 03/25/20 20:30 03/25/20 20:47 Temperature Pulse Rate 73 74 80 Respiratory Rate 20 16 18 Blood Pressure Pulse Oximetry 03/25/20 21:00 03/25/20 21:01 03/25/20 21:15 Temperature Pulse Rate 79 77 73 Respiratory Rate 17 13 14 Blood Pressure 167/63 H Pulse Oximetry 100 99 100 03/25/20 21:31 03/25/20 21:45 03/25/20 22:00 Temperature Pulse Rate 77 74 73 Respiratory Rate 14 17 14 Blood Pressure 167/62 H Pulse Oximetry 99 100 100 03/25/20 22:01 03/25/20 22:02 03/25/20 22:15 Temperature Pulse Rate 73 73 71 Respiratory Rate 14 14 15 Blood Pressure 161/67 H Pulse Oximetry 98 99 98 03/25/20 22
[2020-03-26] MEDS: DONEPEZIL HCL 5 MG TABLET PO ×2 (03:01→20:37)
[2020-03-26] MEDS: SODIUM CHLORIDE 0.9% IV 1,000 ML 100 ML IV CONT ×2 (03:01→13:09)
[2020-03-26 03:08] LABS: Add Urine Microscopic? YES; Appearance Urine Clear (Clear); Bilirubin Urine Negative (Negative); Blood Urine Negative (Negative); Color Urine Yellow (Yellow); Glucose Urine UA Negative (Negative); Ketones Urine Negative (Negative); Leukocyte Esterase Ur Negative LEU/UL (Negative); Mucus Urine Rare /lpf; Nitrate Urine Negative (Negative); Protein Urine Negative (Negative); RBC Urine 0-2 /hpf (0-2); Specific Grav Ur 1.013 (1.001-1.035); Squamous Epithelial Cell Urine Rare /hpf (Few); Urobilinogen Urine Negative mg/dL (<2.0); WBC Urine 0-3 /hpf
[2020-03-26 05:53] LABS: Basophils Percent Auto 0.6 % (0.2-1.2); Eosinophils Absolute Auto 0.1 K/mm3 (0-0.3); Eosinophils Percent Auto 1.8 % (0-4.4); Hematocrit 27.7 % (42.0-52.0); Hemoglobin 9.4 g/dL (14.0-18.0); Immature Granulocyte Absolute 0.01 K/mm3 (0.00-0.031); Immature Granulocyte Percent A 0.1 % (0-0.5); Lymphocytes Absolute Auto 3.18 K/mm3 (0.9-3.2); Lymphocytes Percent Auto 47.5 % (18.3-44.2); Mean Corpuscular HGB Conc 33.9 g/dl (32-36); Mean Corpuscular Hemoglobin 34.4 pg (26-34); Mean Corpuscular Volume 101.5 fl (80-100); Mean Platelet Volume 10.7 fl (7.4-10.4); Monocytes Absolute Auto 0.7 K/mm3 (0.1-0.6); Monocytes Percent Auto 10.6 % (2.6-8.5); Neutrophils Absolute Auto 2.6 K/mm3 (1.3-6.7); Neutrophils Percent Auto 39.4 % (45.5-73.1); Platelet Count Result 227 k/mm3 (150-375); Red Blood Count 2.73 M/mm3 (4.6-6.20); Red Cell Distribution Width 16.2 % (11.5-14.5); White Blood Count 6.7 K/mm3 (4.5-10.0)
[2020-03-26 06:11] LABS: Anion Gap 4 mmol/L (8-16); Blood Urea Nitrogen 21 mg/dL (9-20); Calcium 8.3 mg/dL (8.4-10.2); Carbon Dioxide 29 mmol/L (22-30); Chloride 109 mmol/L (98-107); Estimated CRCL calculation 46 ml/min; Estimated Glomerular Filt Rate > 60; Glucose 97 mg/dL (75-110); Potassium 3.5 mmol/L (3.4-5.0); Sodium 142 mmol/L (137-145)
[2020-03-26 07:55] LABS: Folic Acid > 20.0 ng/mL (2.76->20)
--- NOTE | 2020-03-26 09:17 | PC.NURSE ---
I notified pharmacy that the patient's 12.5mg PO Sertraline would not scan. The error stated the medication did not exist on the patient. I spoke with Juno from pharmacy and he stated that he would fix the barcode. I notified him that the barcode still did not scan and it was giving me the same error code. He stated that he would fix the medication and to retry in five minutes. I attempted to scan the medication again at 0940 and the same error code popped up. I called pharmacy again and I spoke with Abram. Abram attempted to take out the order and place a new order. I tried to scan the new order and the medication was giving me the same error. Abram sent me a new 12.5mg PO Sertraline to give to the patient. This medication's barcode gave me the same error stating that it did not exist on the patient. Abram notified me that he would send this issue to the IT department on Saturday as he has exhausted all possibilities to fix the barcode. Abram requested that I administer the 12.5 mg PO Sertraline and he would send a note to the IT department Saturday.
[2020-03-26] MEDS: PANTOPRAZOLE 40 MG TABLET PO ×2 (09:19→17:16)
[2020-03-26] MEDS: ATORVASTATIN 10 MG TABLET PO (09:19)
[2020-03-26] MEDS: FLUDROCORTISONE ACETATE 0.1 MG TABLET PO (09:19)
[2020-03-26] MEDS: lisinopriL 5 MG TABLET PO (09:49)
[2020-03-26] MEDS: SERTRALINE HCL 12.5 MG TABLET PO (09:54)
--- NOTE | 2020-03-26 10:11 | PM.IMPN ---
Progress Note: A&P Assessment and Plan (1) Syncope and collapse: Code(s): R55 - Syncope and collapse Status: Acute Assessment and Plan: Appears to have known orthostatic hypotension and treated with Florinef per established Neurologist since 08/2019. May be secondary to known orthostatic hypotension with component of dehydration vs an arrhythmia vs exacerbated by possible GI bleed as he has known positive FOBS and being currently worked up for source as outpatient. Not on blood thinners or NSAIDs chronically per chart review. UA unremarkable. CT brain unremarkable for acute intracranial process. EKG grossly unremarkable. Tele unremarkable thus far Monitor Labs PT/OT; use caution with orthostatic hypotension Continue Tele; consider cardiology consultation if arrhythmias TSH w/ reflex T4 pending Orthostatic vitals q shift. Consider MRI and Neurology if still orthostatic Will trend H&H Discussed case with Dr. Alexandre, Hospitalist, at [facility] who states that given that this sounds like a chronic issue of orthostatic hypotension and does not seem to be a need for higher level of care, that she declines the patient for transfer at this time. She recommended continue current treatment with monitoring on telemetry, with consideration of outpatient referral to [facility] cardiology for a second opinion. She also agreed trending H&H with +/- GI Consultation. She was agreeable to have case to be rediscussed with production team manager hospitalist if condition changes. (2) Chronic anemia: Code(s): D64.9 - Anemia, unspecified Status: Chronic Assessment and Plan: No signs of acute blood loss as of yet, although H&H appears to be trending down to 9.4 this morning. He has known positive FOBS and recently has seen KELLY Canales from Dr. Hou office; apparent possible outpatient EGD/Colonoscopy in the future. He has had B12 injections in past. Possibly chronic anemia with possible acute blood loss, although not confirmed s/sx of bleeding Given downtrending H&H and patient/POA not able to tell me if patient having bloody stools/melena, will consult GI for further opinion Will do stool occult blood now Monitor H&H, transfuse p.r.n. (3) Dementia: Qualifiers: Dementia type: unspecified type Dementia behavioral disturbance: without behavioral disturbance Qualified Code(s): F03.90 - Unspecified dementia without behavioral disturbance Code(s): F03.90 - Unspecified dementia without behavioral disturbance Status: Chronic Assessment and Plan: Continue donepezil. (4) Hypertension: Qualifiers: Hypertension type: unspecified Qualified Code(s): I10 - Essential (primary) hypertension Code(s): I10 - Essential (primary) hypertension Status: Chronic Assessment and Plan: With orthostatic hypotension as well Monitor blood pressure closely Resume Lisinopril as BP 170s sys this morning (5) Chronic GERD: Code(s): K21.9 - Gastro-esophageal reflux disease without esophagitis Status: Chronic Assessment and Plan: Continue PPI (6) CKD (chronic kidney disease) stage 3, GFR 30-59 ml/min: Qualifiers: Chronic kidney disease stage 3 subtype: stage 3a (GFR 45-59) Qualified Code(s): N18.31 - Chronic kidney disease, stage 3a Code(s): N18.3 - Chronic kidney disease, stage 3 (moderate) Status: Chronic Assessment and Plan: Kidney function appears to be at baseline. Monitor renal function. Avoid nephrotoxin agents. Renally dose medications. (7) HLD (hyperlipidemia): Qualifiers: Hyperlipidemia type: unspecified Qualified Code(s): E78.5 - Hyperlipidemia, unspecified Code(s): E78.5 - Hyperlipi
--- NOTE | 2020-03-26 12:40 | WPDGIPROGNO ---
Progress Note: A&P Additional Plan Consult dictated Endo by Dr. Hou when stable #[id number] Subjective Date/time seen: 03/26/20 12:40 Objective Data Vital Signs Vital Signs: Vital Signs - 24 hr 03/25/20 19:51 03/25/20 20:06 03/25/20 20:07 Temperature 36.6 C Pulse Rate 72 65 80 Respiratory Rate 17 15 Blood Pressure 162/63 H 168/68 H 103/53 L Pulse Oximetry 96 100 03/25/20 20:09 03/25/20 20:12 03/25/20 20:13 Temperature Pulse Rate 77 74 81 Respiratory Rate 13 20 20 Blood Pressure 168/68 H 140/54 L 103/53 L Pulse Oximetry 100 99 100 03/25/20 20:24 03/25/20 20:30 03/25/20 20:47 Temperature Pulse Rate 73 74 80 Respiratory Rate 20 16 18 Blood Pressure Pulse Oximetry 03/25/20 21:00 03/25/20 21:01 03/25/20 21:15 Temperature Pulse Rate 79 77 73 Respiratory Rate 17 13 14 Blood Pressure 167/63 H Pulse Oximetry 100 99 100 03/25/20 21:31 03/25/20 21:45 03/25/20 22:00 Temperature Pulse Rate 77 74 73 Respiratory Rate 14 17 14 Blood Pressure 167/62 H Pulse Oximetry 99 100 100 03/25/20 22:01 03/25/20 22:02 03/25/20 22:15 Temperature Pulse Rate 73 73 71 Respiratory Rate 14 14 15 Blood Pressure 161/67 H Pulse Oximetry 98 99 98 03/25/20 22:44 03/25/20 23:34 03/26/20 00:00 Temperature 36.6 C 36.8 C Pulse Rate 76 88 83 Respiratory Rate 19 18 Blood Pressure 169/56 H 156/70 H Pulse Oximetry 100 100 03/26/20 02:51 03/26/20 04:00 03/26/20 05:47 Temperature 36.6 C 36.5 C Pulse Rate 79 96 87 Respiratory Rate 16 16 Blood Pressure 164/64 H 176/59 H Pulse Oximetry 100 99 03/26/20 08:41 03/26/20 12:00 Temperature Pulse Rate 101 H 100 Respiratory Rate Blood Pressure Pulse Oximetry Intake/Output Intake/Output: Intake & Output 03/23/20 03/24/20 03/25/2002/21 23:59 23:59 23:59 23:59 Intake Total 1000 490 Output Total 850 Balance 1000 -360 Meds/Results Medications: Active Medications Generic Name Dose Route Start Last Admin Trade Name Chyna PRN Reason Stop Dose Admin Acetaminophen 650 mg 03/25/20 22:13 Acetaminophen 325 Mg Tablet PO Q4H PRN Mild Pain (1-3) or Fever Atorvastatin Calcium 10 mg 03/26/20 09:00 03/26/20 09:19 Atorvastatin 10 Mg Tablet PO 10 mg DAILY TEOFILO Administration Donepezil HCl 5 mg 03/26/20 02:25 03/26/20 03:01 Donepezil Hcl 5 Mg Tablet PO 5 mg HS TEOFILO Administration Fludrocortisone Acetate 0.1 mg 03/26/20 08:00 03/26/20 09:19 Fludrocortisone Acetate 0.1 Mg Tablet PO 0.1 mg DAILY@0800 TEOFILO Administration Sodium Chloride 1,000 mls @ 100 mls/hr 03/26/20 01:55 03/26/20 03:01 Normal Saline Iv IV CONT 100 mls/hr .Q10H TEOFILO Administration Lisinopril 5 mg 03/26/20 09:00 03/26/20 09:49 Lisinopril 5 Mg Tablet PO 5 mg DAILY TEOFILO Administration Ondansetron HCl 4 mg 03/25/20 22:13 Ondansetron Inj 4 Mg/2 Ml Vial IV PUSH Q4H PRN Nausea Pantoprazole Sodium 40 mg 03/26/20 09:00 03/26/20 09:19 Pantoprazole 40 Mg Tablet PO 40 mg BID TEOFILO Administration Sertraline HCl 12.5 mg 03/26/20 09:00 03/26/20 09:54 Sertraline Hcl 12.5 Mg Tablet PO 12.5 mg DAILY TEOFILO Administration Radiology Results: ITS Impressions Chest X-Ray 03/25/20 20:26 IMPRESSION: 1. No acute cardiopulmonary abnormality. Head CT 03/26/20 11:21 IMPRESSION: 1. No acute intracranial process. 2. Age-related changes including age-appropriate mild to moderate diffuse volume loss and mild scattered white matter hypoattenuation consistent with chronic small vessel ischemic disease. Labs Labs: Laboratory Results - last 24 hr 03/25/20 03/25/20 03/25/20 20:47 20:47 20:47 WBC 7.1 RBC 2.80 L Hgb 9.8 L Hct 28.6 L MCV 102.1 H MCH 35.0 H MCHC 34.3 RDW 15.9 H Plt Count 229 MPV 10.4 Immature Gran % (Auto) 0.1 Neut % (Auto) 55.1 Lymph % (Auto) 33.8 [place] % (Auto) 8.6 H Eos %
[2020-03-26 15:13] LABS: Hematocrit 28.7 % (42.0-52.0); Hemoglobin 10.3 g/dL (14.0-18.0)
[2020-03-26] MEDS: ACETAMINOPHEN 325 MG TABLET 650 MG PO (20:37)
[2020-03-26] MEDS: OLANZapine 10 MG INJ VIAL 5 MG IM (22:08)
[2020-03-27 04:00] VITALS: BP 180/70; PULSE 96; RESP 20; TEMP 36.6; O2SAT 100
[2020-03-27 04:56] VITALS: BP 180/70; PULSE 96; RESP 20; TEMP 36.6; O2SAT 100
[2020-03-27 06:05] LABS: Basophils Percent Auto 0.4 % (0.2-1.2); Eosinophils Absolute Auto 0.1 K/mm3 (0-0.3); Eosinophils Percent Auto 1.4 % (0-4.4); Hematocrit 30.3 % (42.0-52.0); Hemoglobin 10.4 g/dL (14.0-18.0); Immature Granulocyte Absolute 0.02 K/mm3 (0.00-0.031); Immature Granulocyte Percent A 0.3 % (0-0.5); Lymphocytes Absolute Auto 2.34 K/mm3 (0.9-3.2); Lymphocytes Percent Auto 30.3 % (18.3-44.2); Mean Corpuscular HGB Conc 34.3 g/dl (32-36); Mean Corpuscular Hemoglobin 35.1 pg (26-34); Mean Corpuscular Volume 102.4 fl (80-100); Mean Platelet Volume 10.5 fl (7.4-10.4); Monocytes Absolute Auto 0.8 K/mm3 (0.1-0.6); Monocytes Percent Auto 9.7 % (2.6-8.5); Neutrophils Absolute Auto 4.5 K/mm3 (1.3-6.7); Neutrophils Percent Auto 57.9 % (45.5-73.1); Platelet Count Result 246 k/mm3 (150-375); Red Blood Count 2.96 M/mm3 (4.6-6.20); Red Cell Distribution Width 16.1 % (11.5-14.5); White Blood Count 7.7 K/mm3 (4.5-10.0)
[2020-03-27 06:08] LABS: Anion Gap 7 mmol/L (8-16); Blood Urea Nitrogen 16 mg/dL (9-20); Calcium 8.6 mg/dL (8.4-10.2); Carbon Dioxide 28 mmol/L (22-30); Chloride 105 mmol/L (98-107); Estimated CRCL calculation 56 ml/min; Estimated Glomerular Filt Rate > 60; Glucose 88 mg/dL (75-110); Potassium 3.2 mmol/L (3.4-5.0); Sodium 140 mmol/L (137-145)
[2020-03-27 08:00] VITALS: BP 166/73; PULSE 88; RESP 18; TEMP 36.1; O2SAT 98
--- NOTE | 2020-03-27 08:30 | PM.IMPN ---
Progress Note: A&P Assessment and Plan (1) Syncope and collapse: Code(s): R55 - Syncope and collapse Status: Acute Assessment and Plan: Appears to have known orthostatic hypotension and treated with Florinef per established Neurologist since 08/2019. May be secondary to known orthostatic hypotension with component of dehydration vs an arrhythmia vs other. H&H is stable. He is not on blood thinners or NSAIDs chronically per chart review. UA unremarkable. CT brain unremarkable for acute intracranial process. EKG grossly unremarkable. Tele unremarkable and patient now refusing to wear dye range operator Labs PT/OT rec rehab, although per CC, patient to return home with 24 hour care Will do Thigh High JENI hose F/u with Dr. Rangel who follows with his orthostatic hypotension F/u with PCP Instruct patient to use caution when changing positions 1/2: Discussed case with Dr. Alexandre, Hospitalist, at [facility] who states that given that this sounds like a chronic issue of orthostatic hypotension and does not seem to be a need for higher level of care, that she declines the patient for transfer at this time. She recommended continue current treatment with monitoring on telemetry, with consideration of outpatient referral to [facility] cardiology for a second opinion. She also agreed trending H&H with +/- GI Consultation. She was agreeable to have case to be rediscussed with technical education teacher hospitalist if condition changes. (2) Chronic anemia: Code(s): D64.9 - Anemia, unspecified Status: Chronic Assessment and Plan: No signs of acute blood loss as of yet, H&H stable. Dr. Donnelly consulted and recommended follow up with Dr. Hou for colonoscopy. No stool has been collected for stool occult blood test. He has had B12 injections in past. Possibly chronic anemia. F/u with PCP H&H 1 week (3) Dementia: Qualifiers: Dementia type: unspecified type Dementia behavioral disturbance: without behavioral disturbance Qualified Code(s): F03.90 - Unspecified dementia without behavioral disturbance Code(s): F03.90 - Unspecified dementia without behavioral disturbance Status: Chronic Assessment and Plan: Continue donepezil. (4) Hypertension: Qualifiers: Hypertension type: unspecified Qualified Code(s): I10 - Essential (primary) hypertension Code(s): I10 - Essential (primary) hypertension Status: Chronic Assessment and Plan: With orthostatic hypotension as well Monitor blood pressure closely at home Continue home meds (5) Chronic GERD: Code(s): K21.9 - Gastro-esophageal reflux disease without esophagitis Status: Chronic Assessment and Plan: Continue PPI (6) CKD (chronic kidney disease) stage 3, GFR 30-59 ml/min: Qualifiers: Chronic kidney disease stage 3 subtype: stage 3a (GFR 45-59) Qualified Code(s): N18.31 - Chronic kidney disease, stage 3a Code(s): N18.3 - Chronic kidney disease, stage 3 (moderate) Status: Chronic Assessment and Plan: Kidney function appears to be at baseline. Monitor renal function. Avoid nephrotoxin agents. Renally dose medications. (7) HLD (hyperlipidemia): Qualifiers: Hyperlipidemia type: unspecified Qualified Code(s): E78.5 - Hyperlipidemia, unspecified Code(s): E78.5 - Hyperlipidemia, unspecified Status: Chronic Assessment and Plan: Continue atorvastatin. Subjective Date/time seen: 03/27/20 08:30 Interval history: Patient is a pleasantly demented 84-year-old male with known chronic hypertension with also known orthostatic hypotension (treated with Florinef p
--- NOTE | 2020-03-27 08:54 | PM.DS ---
DS: Admitting Diagnosis Admitting Diagnosis Admitting Diagnosis: syncope and collapse DS: Discharge Diagnosis Discharge Diagnosis (1) Syncope and collapse: Code(s): R55 - Syncope and collapse Status: Acute Assessment and Plan: Appears to have known orthostatic hypotension and treated with Florinef per established Neurologist since 08/2019. May be secondary to known orthostatic hypotension with component of dehydration vs an arrhythmia vs other. H&H is stable. He is not on blood thinners or NSAIDs chronically per chart review. UA unremarkable. CT brain unremarkable for acute intracranial process. EKG grossly unremarkable. 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 Rangel who follows with his orthostatic hypotension F/u with PCP Instruct patient to use caution when changing positions 1/2: Discussed case with Dr. Alexandre, Hospitalist, at [facility] who states that given that this sounds like a chronic issue of orthostatic hypotension and does not seem to be a need for higher level of care, that she declines the patient for transfer at this time. She recommended continue current treatment with monitoring on telemetry, with consideration of outpatient referral to [facility] cardiology for a second opinion. She also agreed trending H&H with +/- GI Consultation. She was agreeable to have case to be rediscussed with validation leader hospitalist if condition changes. (2) Chronic anemia: Code(s): D64.9 - Anemia, unspecified Status: Chronic Assessment and Plan: No signs of acute blood loss as of yet, H&H stable. Dr. Donnelly consulted and recommended follow up with Dr. Hou for colonoscopy. No stool has been collected for stool occult blood test. He has had B12 injections in past. Possibly chronic anemia. F/u with PCP H&H 1 week (3) Dementia: Qualifiers: Dementia behavioral disturbance: without behavioral disturbance Dementia type: unspecified type Qualified Code(s): F03.90 - Unspecified dementia without behavioral disturbance Code(s): F03.90 - Unspecified dementia without behavioral disturbance Status: Chronic Assessment and Plan: Continue donepezil. (4) Hypertension: Qualifiers: Hypertension type: unspecified Qualified Code(s): I10 - Essential (primary) hypertension Code(s): I10 - Essential (primary) hypertension Status: Chronic Assessment and Plan: With orthostatic hypotension as well Monitor blood pressure closely at home Continue home meds (5) Chronic GERD: Code(s): K21.9 - Gastro-esophageal reflux disease without esophagitis Status: Chronic Assessment and Plan: Continue PPI (6) CKD (chronic kidney disease) stage 3, GFR 30-59 ml/min: Qualifiers: Chronic kidney disease stage 3 subtype: stage 3a (GFR 45-59) Qualified Code(s): N18.31 - Chronic kidney disease, stage 3a Code(s): N18.3 - Chronic kidney disease, stage 3 (moderate) Status: Chronic Assessment and Plan: Kidney function appears to be at baseline. Monitor renal function. Avoid nephrotoxin agents. Renally dose medications. (7) HLD (hyperlipidemia): Qualifiers: Hyperlipidemia type: unspecified Qualified Code(s): E78.5 - Hyperlipidemia, unspecified Code(s): E78.5 - Hyperlipidemia, unspecified Status: Chronic Assessment and Plan: Continue atorvastatin. DS: Summary Hospital Course Reason for hospitalization: Syncope and collapse Hospital Course: Date of arrival: 03/25/20 Date
[2020-03-27] MEDS: SERTRALINE HCL 12.5 MG TABLET PO (09:43)
[2020-03-27] MEDS: POTASSIUM CHLORIDE 20 MEQ TABLET 40 MEQ PO (09:43)
[2020-03-27] MEDS: lisinopriL 5 MG TABLET PO (09:44)
[2020-03-27] MEDS: PANTOPRAZOLE 40 MG TABLET PO (09:44)
[2020-03-27] MEDS: ATORVASTATIN 10 MG TABLET PO (09:44)
[2020-03-27] MEDS: FLUDROCORTISONE ACETATE 0.1 MG TABLET PO (09:44)
[2020-03-27 12:00] VITALS: BP 164/69; PULSE 63; RESP 18; TEMP 36.2; O2SAT 92
--- NOTE | 2020-03-28 06:13 | CONS_ITS ---
DATE OF CONSULTATION: 03/26/2020 HISTORY OF PRESENT ILLNESS: An 84-year-old male with history of coronary artery disease, status post ME, TIA, chronic kidney disease, hypertension, hyperlipidemia, GERD, B12 deficiency, cholecystectomy, cataract extraction, dementia, who I am now asked to provide GI evaluation at the request of the hospitalist service for heme-positive stool and anemia. The patient's primary care provider is Alannah HENRIQUEZ. Primary streetcar repairer, Dr. Capps. The patient has significant dementia and cannot provide any meaningful history. He was seen by [facility] on March 23, 2020 for anemia and heme-positive stool. The patient was heme-positive on August 28, 2018 with hematocrit of 40. On February 11, ferritin is 191, iron is 108, TIBC 204%, sat is 53. LFTs were normal. On March 25, hematocrit 29, creatinine of 1. On March 26, hematocrit 28, white count of 7, MCV is 102, B12 is 531, folate is greater than 20. TSH is 1.58. By her note, there were no reports of hematemesis, hematochezia, or melena. He has a 20-pound weight loss over the past year. No diarrhea or constipation. He does appear to have easy bruising with ecchymosis on both arms. REVIEW OF SYSTEMS: Review of systems and GI review of systems is unobtainable. No endocarditis risk factors. ALLERGIES: NO KNOWN DRUG ALLERGIES. HOME MEDICATIONS: Include: 1. Omeprazole 40 mg daily. 2. Atorvastatin. 3. Donepezil. 4. Fludrocortisone. 5. Lisinopril. 6. Quetiapine. 7. Zoloft. SOCIAL HISTORY: Nonsmoker. Occasional alcohol. FAMILY HISTORY: Someone had pancreatic cancer. The patient has never had colonoscopy. PHYSICAL EXAMINATION: GENERAL: Well-developed, well-nourished male, lying in bed, no apparent distress. He has no lower extremity edema, jaundice, spider angioma, palmar erythema. SKULL: Normocephalic and atraumatic. Pupils nonicteric. Oropharynx clear. NECK: Supple without thyromegaly. LUNGS: Clear to auscultation. HEART: Rate and rhythm regular. S1, S2 normal. ABDOMEN: Bowel sounds soft, nontender, nonrigid, nondistended without hepatosplenomegaly or masses. RECTAL: Deferred. NEUROLOGIC: Conscious and confused. ASSESSMENT/PLAN: 1. Gastroesophageal reflux disease, stable on omeprazole. 2. Chronic blood loss anemia with macrocytosis, heme-positive stool. Certainly concern for GI source of blood loss. The patient is already setup for outpatient endoscopy, but is now admitted for orthostatic hypotension. I have discussed the case with Britton HENRIQUEZ and we will monitor him for now and consider for colonoscopy and possible upper endoscopy when stable. Macrocytosis is likely due to the patient's known and chronic B12 deficiency. 3. Weight loss. We will await endoscopy and if negative, consider CT scan of the chest, abdomen and pelvis if not already done. Thank you for allowing me to share in the care of this very nice patient. Case was discussed with the patient's daughter. She is in agreement with the plan. SERGIO BELLO M.D. CC:? Shawn Capps M.D. MARTINEZ GERBER ASSISTANT PROFESSOR OF DRAMA ASSISTANT PROFESSOR OF DRAMA D Annmarie MT: Aaron
== END 2020-03-27 14:50 | disposition home or self-care (01) | DRG 312 ==
LOC: ANHED 21:15 → ANH2MED 22:23
PROVIDERS: Physician Assistant; Admitting Provider Family Medicine; Emergency Provider Emergency Medicine; Visit Provider Internal Medicine
DX: I95.1 Orthostatic hypotension (principal); E86.0 Dehydration; F03.90 Unspecified dementia, unspecified severity, without behavioral disturbance, psychotic disturbance, mood disturbance, and anxiety; D63.8 Anemia in other chronic diseases classified elsewhere; K21.9 Gastro-esophageal reflux disease without esophagitis; I12.9 Hypertensive chronic kidney disease with stage 1 through stage 4 chronic kidney disease, or unspecified chronic kidney disease; N18.31 Chronic kidney disease, stage 3a; E78.5 Hyperlipidemia, unspecified; F32.9 Major depressive disorder, single episode, unspecified; D50.0 Iron deficiency anemia secondary to blood loss (chronic); E53.8 Deficiency of other specified B group vitamins; I25.10 Atherosclerotic heart disease of native coronary artery without angina pectoris; R63.4 Abnormal weight loss; Z86.73 Personal history of transient ischemic attack (TIA), and cerebral infarction without residual deficits; Z90.49 Acquired absence of other specified parts of digestive tract; I25.2 Old myocardial infarction; Z98.42 Cataract extraction status, left eye; Z98.41 Cataract extraction status, right eye
CPT/HCPCS: 36415; 70450; 71046; 72125; 80048; 81001; 82607; 82746; 83735; 84443; 84484; 85014; 85018; 85025; 93005; 96360; 96361; 96374; 97110; 97161; 97165; 99285; A9270; G0378; J0360; J7030

== ENCOUNTER 2020-04-18 00:20 | Outpatient (CLI) | payer MEDICARE, SELFPAY ==
[2020-04-18 18:26] LABS: SARS-CoV-2 RNA PCR Negative
== END 2020-04-18 00:21 | disposition home or self-care (01) ==
LOC: ANHCOVIDDT 00:20
PROVIDERS: Visit Provider Internal Medicine Gastroenterology
DX: Z01.812 Encounter for preprocedural laboratory examination (principal); Z20.822 Contact with and (suspected) exposure to COVID-19
CPT/HCPCS: C9803; U0003; U0005

== ENCOUNTER 2020-04-21 01:04 | Day surgery (SDC) | payer MEDICARE, SELFPAY ==
[2020-04-05 09:06] VITALS: BMI 26.8
[2020-04-21 10:46] VITALS: BP 169/70; PULSE 84; RESP 20; TEMP 36.2; O2SAT 96; BMI 25.8
--- NOTE | 2020-04-21 11:07 | WPDANESEPP ---
Anes - Eval Pre Procedure Procedure: Operation Date: 04/21/20 13:00 Proposed Procedures p Colonoscopy - Shawn Capps MD Date/Time: 04/21/20 11:07 Pre Op Diagnosis: positive cologuard Patient Data Age: 84 Gender: M Height: 1.73 m Weight: 77 kg Last Vital Signs Temp 36.2 C L 04/21/20 10:46 Pulse 84 04/21/20 10:46 Resp 20 04/21/20 10:46 BP 169/70 H 04/21/20 10:46 Pulse Ox 96 04/21/20 10:46 Allergies Allergy/AdvReac Type Severity Reaction Status Date / Time No Known Allergies Allergy Verified 04/21/20 10:43 Home Medications Medication Instructions Recorded Confirmed Type fludrocortisone 0.1 mg tablet 0.1 mg PO DAILY 09/01/19 04/05/20 History quetiapine 25 mg tablet 25 mg PO 1800 tablet 09/01/19 04/05/20 History atorvastatin 10 mg tablet 10 mg PO DAILY #90 tablet 10/13/19 04/05/20 Rx omeprazole 40 mg capsule,delayed 40 mg PO DAILY #90 cap 10/13/19 04/05/20 Rx release lisinopril 5 mg PO DAILY 02/01/20 04/05/20 History donepezil 5 mg tablet 5 mg PO HS #90 tablet 03/28/20 04/05/20 Rx sertraline 25 mg tablet 12.5 mg PO DAILY #45 tablet 03/28/20 04/05/20 Rx Patient hx anesthesia problems: none Family hx anesthesia problems: none PMFSH Past Medical History Medical History Dementia Hypertension TIA (transient ischemic attack) Weight loss Surgical History Surgical History History of cholecystectomy Hx of cataract surgery Family History Family History Mother Hypertension Family history of pancreatic cancer Social History Social History Smoking status: Never smoker Alcohol intake: never Drinks per week: 1 Substance use: never Substance use type: does not use Living arrangements: with family Gender identity (if verbalized by the patient): Male Spiritual care concerns: No Exam Day of Procedure 04/21/20 11:07
[2020-04-21] MEDS: LACTATED RINGERS 1,000 ML 150 ML IV CONT (11:12)
--- NOTE | 2020-04-21 11:55 | WPDANESEPPF ---
Anes - Initial Pre Proc Eval Procedure: Operation Date: 04/21/20 13:00 Proposed Procedures p Colonoscopy - Shawn Capps MD Date/Time: 04/21/20 11:55 Surgeon: Shawn Capps MD Pre Op Diagnosis: positive cologuard Patient Data Age: 84 Gender: M Height: 5 ft 8 in Weight: 77 kg Last Vital Signs Temp 97.2 F L 04/21/20 10:46 Pulse 84 04/21/20 10:46 Resp 20 04/21/20 10:46 BP 169/70 H 04/21/20 10:46 Pulse Ox 96 04/21/20 10:46 Allergies Allergy/AdvReac Type Severity Reaction Status Date / Time No Known Allergies Allergy Verified 04/21/20 10:43 Home Medications Medication Instructions Recorded Confirmed Type fludrocortisone 0.1 mg tablet 0.1 mg PO DAILY 09/01/19 04/05/20 History quetiapine 25 mg tablet 25 mg PO 1800 tablet 09/01/19 04/05/20 History atorvastatin 10 mg tablet 10 mg PO DAILY #90 tablet 10/13/19 04/05/20 Rx omeprazole 40 mg capsule,delayed 40 mg PO DAILY #90 cap 10/13/19 04/05/20 Rx release lisinopril 5 mg PO DAILY 02/01/20 04/05/20 History donepezil 5 mg tablet 5 mg PO HS #90 tablet 03/28/20 04/05/20 Rx sertraline 25 mg tablet 12.5 mg PO DAILY #45 tablet 03/28/20 04/05/20 Rx Patient hx anesthesia problems: none Family hx anesthesia problems: none PMFSH Past Medical History Medical History Dementia Hypertension TIA (transient ischemic attack) Weight loss Surgical History Surgical History History of cholecystectomy Hx of cataract surgery Family History Family History Mother Hypertension Family history of pancreatic cancer Social History Social History Smoking status: Never smoker Alcohol intake: never Drinks per week: 1 Substance use: never Substance use type: does not use Living arrangements: with family Gender identity (if verbalized by the patient): Male Spiritual care concerns: No Anes - Eval Final PreProcedure Day of Procedure 04/21/20 11:55 Patient weight: normal Heart: regular rate and rhythm Lungs: clear to auscultation Airway: Mallampati scale class II Neurological: other (has dementia; with patient) Last oral intake: >/= 8 hours ASA classification: III Emergent: no Anesthetic plan: proceed Anesthesia type and monitoring: general GIVS and standard monitoring Informed Consent: The patient's anesthetic plan and its attendant risks and benefits were discussed with the patient/family/POA. Questions were solicited and answers provided to the satisfaction of the patient/family/POA.
--- NOTE | 2020-04-21 12:05 | PM.HPGS ---
History of Present Illness History of Present Illness Consent: Risks, benefits, and alternatives have been discussed and questions answered. Patient agrees to proceed with procedure. Chief complaint: positive cologuard Narrative: Lico Calix is a 84 year old male with anemia and cologuard +, recent admission with orthostasis and syncope. He does not remember having a colonoscopy ( is here) Review of Systems Constitutional: Constitutional: Denies headache(s) and Denies weakness Eyes: Eyes: Denies blurry vision ENT: Reports Normal hearing present, Denies headache(s) and Denies neck pain Cardiovascular: Cardiovascular: Denies chest pain and Denies dyspnea Respiratory: Respiratory: Denies dyspnea Gastrointestinal: Gastrointestinal: Reports no additional gastrointestinal complaints Genitourinary: Genitourinary: Denies dysuria Musculoskeletal: Musculoskeletal: Denies neck pain Integumentary/Breasts: Skin/Breast: Denies dry skin Neurologic: Reports Normal hearing present, Denies headache(s) and Denies weakness Psychiatric: Psychiatric: Denies anxiety Endocrine: Endocrine: Denies change in body appearance Hematologic/Lymphatic: Hematologic/Lymphatic: Denies easy bleeding Allergic/Immunologic: Allergic/Immunologic: Denies urticaria PMFSH Past Medical History Medical History Dementia Hypertension TIA (transient ischemic attack) Weight loss Surgical History Surgical History History of cholecystectomy Hx of cataract surgery Family History Family History Mother Hypertension Family history of pancreatic cancer Social History Social History Smoking status: Never smoker Alcohol intake: never Drinks per week: 1 Substance use: never Substance use type: does not use Living arrangements: with family Gender identity (if verbalized by the patient): Male Spiritual care concerns: No Meds Home Medications and Allergies Home Medications Medication Instructions Recorded Confirmed Type fludrocortisone 0.1 mg tablet 0.1 mg PO DAILY 09/01/19 04/05/20 History quetiapine 25 mg tablet 25 mg PO 1800 tablet 09/01/19 04/05/20 History atorvastatin 10 mg tablet 10 mg PO DAILY #90 tablet 10/13/19 04/05/20 Rx omeprazole 40 mg capsule,delayed 40 mg PO DAILY #90 cap 10/13/19 04/05/20 Rx release lisinopril 5 mg PO DAILY 02/01/20 04/05/20 History donepezil 5 mg tablet 5 mg PO HS #90 tablet 03/28/20 04/05/20 Rx sertraline 25 mg tablet 12.5 mg PO DAILY #45 tablet 03/28/20 04/05/20 Rx Allergies Allergy/AdvReac Type Severity Reaction Status Date / Time No Known Allergies Allergy Verified 04/21/20 10:43 Vital Signs Vital Signs - 24 hr 04/21/20 10:46 Temperature 97.2 F L Pulse Rate 84 Respiratory Rate 20 Blood Pressure 169/70 H Pulse Oximetry 96 Exam Const: General: comfortable and no acute distress HENMT: General nose exam: Normal nares present Eyes: General: appearance normal, both eyes and all related structures Neck: Neck: no JVD Resp: Auscultation: clear to auscultation bilaterally Cardio: Rate: regular rate Rhythm: regular rhythm GI: Inspection: non-distended GI Palp: Yes Soft to palpation Skin: General skin exam: normal color Neuro: General: gait normal Speech: normal speech Extrem: General: normal to inspection Psych: Mental Status: mental status grossly normal Assessment and Plan Assessment and plan (1) Chronic anemia: Code(s): D64.9 - Anemia, unspecified Status: Chronic (2) Positive colorectal cancer screening using Cologuard test: Code(s): R19.5 - Other fecal abnormalities Status: Acute Assessment and Plan: will proceed with colonoscopy
[2020-04-21 13:45] VITALS: BP 167/58; PULSE 66; RESP 15; TEMP 36.2; O2SAT 100
[2020-04-21 13:55] VITALS: BP 148/91; PULSE 66; RESP 15; O2SAT 98
[2020-04-21 14:05] VITALS: BP 201/76; PULSE 77; RESP 15; O2SAT 100
[2020-04-21 14:25] VITALS: BP 212/72; PULSE 66; RESP 15; O2SAT 100
--- NOTE | 2020-04-21 14:25 | SUR.PHASEII ---
BP elevated. Dr. Owens made aware. Ok for pt to go home and take lisinopril. Pt and family state understanding.
== END 2020-04-21 14:45 | disposition home or self-care (01) ==
PROVIDERS: PCP Family Medicine; Visit Provider Internal Medicine Gastroenterology
PROC: 0DJD8ZZ Inspection of Lower Intestinal Tract, Via Natural or Artificial Opening Endoscopic (ICD-10-PCS; CPT 45378; principal; 2020-04-21 13:00)
DX: D64.9 Anemia, unspecified (principal); R19.5 Other fecal abnormalities; D12.5 Benign neoplasm of sigmoid colon; D12.2 Benign neoplasm of ascending colon; D12.3 Benign neoplasm of transverse colon; K63.5 Polyp of colon; I10 Essential (primary) hypertension; F03.90 Unspecified dementia, unspecified severity, without behavioral disturbance, psychotic disturbance, mood disturbance, and anxiety; Z86.73 Personal history of transient ischemic attack (TIA), and cerebral infarction without residual deficits
CPT/HCPCS: 45380; 45385; 45381; 45390; 88305; J2704; J7120

== ENCOUNTER 2020-06-03 13:31 | Outpatient (CLI) | payer MEDICARE, SELFPAY | END 2020-06-03 13:32 | disposition home or self-care (01) | LOC: ANHCOVIDVC 13:32 | PROVIDERS: PCP Family Medicine | DX: Z23 Encounter for immunization (principal) | CPT/HCPCS: 0001A; 91300 ==

== ENCOUNTER 2020-06-24 13:35 | Outpatient (CLI) | payer MEDICARE, SELFPAY | END 2020-06-24 13:36 | disposition home or self-care (01) | LOC: ANHCOVIDVC 13:35 | PROVIDERS: PCP Family Medicine | DX: Z23 Encounter for immunization (principal) | CPT/HCPCS: 0002A; 91300 ==

== ENCOUNTER 2020-07-09 11:42 | Emergency (ER) | payer MEDICARE, SELFPAY ==
[2020-07-09 11:50] VITALS: BP 186/65; PULSE 90; RESP 24; TEMP 38.6; O2SAT 92
--- NOTE | 2020-07-09 11:54 | ED.GENADULT ---
HPI - General Adult General Chief complaint: Unspecified Stated complaint: cough/fever/mental status changes Time Seen by Provider: 07/09/20 11:54 Source: patient Mode of arrival: ambulatory Limitations: no limitations History of Present Illness HPI narrative: 84-year-old male patient presents to the [facility] accompanied by his caregiver with complaints of weakness and confusion. Caregiver states that she went in to see him today and he was not able to walk or get around like he normally did and is very slow to respond. Patient states he does feel cold and started feeling bad yesterday. Patient has had both of his Covid vaccine his most recent/second 1 was about 2 weeks ago. Related Data Home Medications Medication Instructions Recorded Confirmed fludrocortisone 0.1 mg tablet 0.1 mg PO DAILY 09/01/19 04/28/20 Allergies Allergy/AdvReac Type Severity Reaction Status Date / Time No Known Allergies Allergy Verified 04/21/20 10:43 Review of Systems Review of Systems: Narrative: CONSTITUTIONAL: Positive fever, chills,, denies sweats. EYES: Denies visual changes, redness, or discharge. ENT: Denies rhinorrhea, congestion, sore throat, or otalgia. CARDIOVASCULAR: Denies chest pain, palpitations, or edema. RESPIRATORY: Denies cough or dyspnea. GASTROINTESTINAL: Denies abdominal pain, nausea, vomiting, or diarrhea. GENITOURINARY: Denies dysuria or hematuria. SKIN: Denies rash or itching. MUSCULOSKELETAL: Denies back pain, joint pain, or myalgia. NEUROLOGIC: Denies headache, numbness, positive weakness. Positive confusion PSYCHIATRIC: Denies anxiety or depression. [facility] Past Medical History Medical History Dementia Hypertension Positive colorectal cancer screening using Cologuard test TIA (transient ischemic attack) Weight loss Surgical History Surgical History History of cholecystectomy Hx of cataract surgery Family History Family History Mother Hypertension Family history of pancreatic cancer Social History Social History Smoking status: Never smoker Alcohol intake: never Drinks per week: 3 Substance use: never Substance use type: does not use Gender identity (if verbalized by the patient): Male Spiritual care concerns: No Comments At the time of my signature I agree with nursing past medical history, surgical, social, and family history. There is no relevant family history pertinent to the presenting complaint. Exam Narrative: Exam Narrative: GENERAL: ill-appearing, well-nourished, and in no acute distress. HEAD: Normocephalic, atraumatic. EYES: PERRLA and EOMI. ENT: Nares clear, no rhinorrhea or epistaxis. Mucous membranes moist. NECK: Supple. No lymphadenopathy CHEST: Decreased auscultation. No respiratory distress. HEART: Regular rate and rhythm. No murmur heard. Normal peripheral pulses. ABDOMEN: Soft, nontender, nondistended, normal active bowel sounds. EXTREMITIES: Normal range of motion. No edema. SKIN: Warm, dry, no rash. NEURO: Alert and oriented x1-2, GCS 14. Cranial nerves II through XII grossly intact. No focal neurological deficits. Decreased muscle strength and tone. Not following directions well. Patient very weak when trying to get up and walk Course Vital Signs Vital signs: Vital Signs Temperature 38.6 C H 07/09/20 11:50 Pulse Rate 90 07/09/20 11:50 Respiratory Rate 24 H 07/09/20 11:50 Blood Pressure 186/65 H 07/09/20 11:50 Pulse Oximetry 92 07/09/20 11:50 Temperature 38.6 C H 07/09/20 11:50 Pulse Rate 90 07/09/20 11:50 Respiratory Rate 24 H 07/09/20 11:50 Blood Pressure 186/65 H 07/09/20 11:50 Pulse Oximetry 92 07/09/20 11:50 Vital signs reviewed The patient has been informed that they may have pre-hypertension or
--- NOTE | 2020-07-09 12:00 | PC.NURSE ---
Spoke with MOISE Peace and received consent to treat. Patient has history of hypertension. Typically alert and oriented. Has been confused today. Is A and O x1. Has fever which has not been treated. Also has had a cough and scratchy throat. Usually ambulatory per self.
[2020-07-09 12:03] VITALS: PULSE 86; O2SAT 98
[2020-07-09 12:08] VITALS: O2SAT 98
== END 2020-07-09 12:12 | disposition short-term general hospital (02) ==
PROVIDERS: Emergency Provider Nurse Practitioner Family; PCP Family Medicine
DX: R41.82 Altered mental status, unspecified (principal); F03.90 Unspecified dementia, unspecified severity, without behavioral disturbance, psychotic disturbance, mood disturbance, and anxiety; I10 Essential (primary) hypertension; Z86.73 Personal history of transient ischemic attack (TIA), and cerebral infarction without residual deficits
CPT/HCPCS: 99215; G0463

== ENCOUNTER 2020-07-09 12:28 | Inpatient (IN) | payer MEDICARE, SELFPAY ==
[2020-07-09] VITALS (8 sets, daily range): BP systolic 138–184; BP diastolic 52–76; PULSE 67–93; RESP 16–21; TEMP 36.9–38.4; O2SAT 91–100; BMI 24.3; BMI 25.0
--- NOTE | ~2020-07-09 | CT_ITS ---
EXAMINATION: CT brain wo con DATE: 07/09/2020 13:00 INDICATION: Altered mental status TECHNIQUE: Computed tomography (CT) of the head was performed without intravenous contrast. Sagittal and coronal reconstructions were performed. The mA was adjusted according to patient size. Iterative reconstruction technique was employed. The dose-length product was 681.00 mGy-cm. COMPARISON: head CT dated 03/26/2020 FINDINGS: No acute intracranial hemorrhage, acute infarction or abnormal extra axial fluid collection. There is mild scattered white matter hypoattenuation consistent with chronic small vessel ischemic disease. S ymmetric prominence of the sulci consistent with mild to moderate age-appropriate diffuse cerebral vo lume loss. Ventricles are normal and symmetric. No mass/mass effect. Changes of bilateral intraocular lens replacement. The orbits and mastoid air cells are normal. Mucosal thickening the bilateral ethm oid sinuses as well as in the right maxillary sinus which demonstrates thickened sclerotic smith cons istent with chronic sinusitis and with resection of portion of the medial wall. IMPRESSION: 1. No acute intracranial process. 2. Age-related changes including age-appropriate mild to moderate diffuse volume loss and mild scatte red white matter hypoattenuation consistent with chronic small vessel ischemic disease. Reviewed, dictated and finalized at location A. IMPRESSION: 1. No acute intracranial process. 2. Age-related changes including age-appropriate mild to moderate diffuse volum e loss and mild scattered white matter hypoattenuation consistent with chronic small vessel ischemic disease.
--- NOTE | ~2020-07-09 | XR_ITS ---
EXAMINATION: XR chest 2V DATE: 07/12/2020 08:12 INDICATION: Lung disease. Abnormal chest radiograph. TECHNIQUE: Frontal and lateral views of the chest were obtained. COMPARISON: Chest single views 07/09/2020 FINDINGS: Deandre B lines are noted, consistent with mild pulmonary edema. There are small pleural eff usions. No pneumothorax. Cardiomegaly is noted. Surgical clips in the right upper quadrant are likely from cholecystectomy. IMPRESSION: 1. Mild pulmonary edema. 2. Small pleural effusions. 3. Cardiomegaly. Reviewed, dictated and finalized at location B.
--- NOTE | ~2020-07-09 | XR_ITS ---
MODIFIED ESOPHAGRAM HISTORY: Dysphagia. Cough. TECHNIQUE: Modified barium esophagram was performed on 07/10/2020. I administered fluoroscopy and perf ormed the exam with speech pathologist. Patient was seated for lateral fluoroscopic imaging for dariel stion of thin liquids, pudding, solids and quantified amounts, followed by thin liquids in uncontroll ed amounts. This was recorded on tape. A single fluoroscopic spot image was also recorded. The DAP fo r this procedure was 2.528 Gycm2. The amount of fluoroscopy time used during this procedure was 4.0 m inutes. FINDINGS: Oral stage: Adequate function. Pharyngeal stage: Adequate function with minimal residue in the vallecula and perform sinuses. Cervical/esophageal stage: Adequate function. IMPRESSION: Patient tolerated regular consistency oral feedings in the upright position. Please jaky elate with speech pathologist findings and specific feeding recommendations. Reviewed, dictated and finalized at location A. IMPRESSION: Patient tolerated regular consistency oral feedings in the upright position. Please correlate with speech pathologist findings and specific feedi ng recommendations.
--- NOTE | ~2020-07-09 | XR_ITS ---
EXAMINATION: XR chest 1V portable DATE: 07/09/2020 13:03 INDICATION: Cough and fever TECHNIQUE: frontal view of the chest was obtained. COMPARISON: Chest radiograph dated 03/25/2020 FINDINGS: Pulmonary vascular congestion and increased perihilar opacities which could represent pneumonia or pu lmonary edema. No pleural effusion or pneumothorax. The cardiomediastinal silhouette is within normal limits for AP technique. Visualized bones and soft tissues are unremarkable. IMPRESSION: 1. Pulmonary vascular congestion and increased bilateral perihilar opacities which could represent mi ld pulmonary edema or pneumonia. Reviewed, dictated and finalized at location A. IMPRESSION: 1. Pulmonary vascular congestion and increased bilateral perihilar opacities wh ich could represent mild pulmonary edema or pneumonia.
--- NOTE | 2020-07-09 12:37 | ED.AMS ---
HPI - Altered Mental Status General Chief Complaint: Altered Mental Status Stated Complaint: AMS History of Present Illness HPI narrative: 84 yo male w/ h/o htn, dementia brought in by EMS from urgent care for fever and confusion. He has been reportedly not feeling well for about the past day. Noted to have a dry cough and decreased appetitie. Today he was taken to urgent care and found to have a temperture of 101. Per EMS he was oriented x1-2, baseline is fully oriented. The patient denies any complaints at this time. He received final dose of COVID vaccine 3 weeks ago. History limited by mental status. Related Data Home Medications Medication Instructions Recorded Confirmed fludrocortisone 0.1 mg tablet 0.1 mg PO DAILY 09/01/19 07/09/20 donepezil [Aricept] 5 mg PO DAILY 07/09/20 07/09/20 quetiapine 25 mg PO DAILY 07/09/20 07/09/20 Allergies Allergy/AdvReac Type Severity Reaction Status Date / Time No Known Allergies Allergy Verified 07/09/20 16:55 Review of Systems Review of Systems: ROS unobtainable: Yes unobtainable due to mental status Cardiovascular: Cardiovascular: Denies chest pain Respiratory: Respiratory: Denies dyspnea [facility] Past Medical History Medical History (Updated 07/10/20 @ 15:20 by Lee Martinez MD) Chronic anemia Chronic kidney disease Dementia Diastolic dysfunction Echocardiogram in August 2018 showed normal left ventricular systolic function size, moderate concentric LVH, sigmoid hypertrophy, impaired diastolic relaxation grade 1, and an EF of 65 to 70%. Gastroesophageal reflux disease Hiatal hernia Hypertension Positive colorectal cancer screening using Cologuard test Status post colonoscopy in March [address] Capps. Several polyps were removed consistent with tubular adenomas and tubulovillous adenomas. Transient ischemic attack Vitamin B12 deficiency Surgical History Surgical History (Updated 07/09/20 @ 16:38 by Gail Reddy PA-C) History of bilateral cataract extraction History of cholecystectomy History of colonoscopy with polypectomy (~03/2020) 3 benign polyps removed. History of nasal polypectomy Family History Family History Mother Hypertension Family history of pancreatic cancer Social History Social History (Updated 07/09/20 @ 21:46 by Gail Reddy PA-C) Social History: Surrogate decision maker: Anastasiia Manzano, daughter. Code status: Listed as a full code in the computer. Smoking status: Never smoker Alcohol intake: current Drinks per week: 0 Substance use: never Substance use type: does not use Additional living arrangements comments: The patient lives in his own home in [place] with his dog. He is and has 3 children. A prototype special build comes to the home daily and his children live nearby. 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 Gender identity (if verbalized by the patient): Male Sexual Orientation (if Verbalized by the Patient): Straight or Heterosexual Spiritual care concerns: No Exam Const: General: no acute distress, alert and ill appearing Nutritional Appearance: well nourished HENMT: Head: normal to inspection Eyes: Conjunctivae: conjunctivae normal Pupils: Equal, round and reactive pupils present EOM: EOMs intact bilaterally Neck: Neck: normal visual inspection and no lymphadenopathy Chest: Chest palpation & inspection: normal inspection of the chest Resp: Effort & Inspection: normal respiratory effort Auscultation: clear to auscultation bilaterally Cardio: Rate: regular rate Rhythm: regular rhythm GI: GI Palp: Yes Soft to palpation and No Tenderness to palpation present (GI) Skin: General skin exam: normal color Rashes: no rashes Wounds: no wounds Neuro: General: moves all extremities, no focal motor deficits and CN's II-XI intact bilaterally Speech: jocelynn
--- NOTE | 2020-07-09 12:49 | PC.NURSE ---
Pt to CT scan via stretcher at this time.
--- NOTE | 2020-07-09 13:39 | ECG_ITS ---
Measurements Intervals [place] Rate: 92 P: 6 NH: 136 QRS: -3 QRSD: 93 T: 44 QT: 338 QTc: 418 Interpretive Statements SINUS RHYTHM BORDERLINE R WAVE PROGRESSION, ANTERIOR LEADS BASELINE ARTIFACT- I, II, III, AVF BORDERLINE ECG Electronically Signed On 07-09-2020 17:43:49 CDT by Andrea Jones D.O.
[2020-07-09 13:54] LABS: Basophils Percent Auto 0.3 % (0.2-1.2); Eosinophils Percent Auto 0.3 % (0-4.4); Hematocrit 23.7 % (42.0-52.0); Immature Granulocyte Absolute 0.05 K/mm3 (0.00-0.031); Immature Granulocyte Percent A 0.5 % (0-0.5); Lymphocytes Absolute Auto 2.63 K/mm3 (0.9-3.2); Lymphocytes Percent Auto 26.8 % (18.3-44.2); Mean Corpuscular HGB Conc 33.8 g/dl (32-36); Mean Corpuscular Hemoglobin 37.4 pg (26-34); Mean Corpuscular Volume 110.7 fl (80-100); Mean Platelet Volume 10.6 fl (7.4-10.4); Monocytes Absolute Auto 0.6 K/mm3 (0.1-0.6); Monocytes Percent Auto 5.8 % (2.6-8.5); Neutrophils Absolute Auto 6.5 K/mm3 (1.3-6.7); Neutrophils Percent Auto 66.3 % (45.5-73.1); Platelet Count Result 237 k/mm3 (150-375); Red Blood Count 2.14 M/mm3 (4.6-6.20); Red Cell Distribution Width 17.1 % (11.5-14.5); White Blood Count 9.8 K/mm3 (4.5-10.0)
--- NOTE | 2020-07-09 14:00 | PC.NURSE ---
Pt placed on 2L NC due to O2 saturation at 89%
[2020-07-09 14:02] LABS: Lactic Acid Reflex 0.7 mmol/L (0.7-2.1)
[2020-07-09 14:04] LABS: INR 1.1; Prothrombin Time 14.9 Seconds (11.1-14.7)
[2020-07-09 14:05] LABS: Alanine Aminotransferase 11 U/L (4-50); Albumin Level 3.4 g/dL (3.5-5.1); Alkaline Phosphatase 68 U/L (38-126); Anion Gap 5 mmol/L (8-16); Aspartate Amino Transferase 18 U/L (17-59); Bilirubin,Total 0.6 mg/dL (0.2-1.3); Blood Urea Nitrogen 16 mg/dL (9-20); CRP 1.3 mg/dL (<1.0); Calcium 8.5 mg/dL (8.4-10.2); Carbon Dioxide 28 mmol/L (22-30); Chloride 107 mmol/L (98-107); Estimated Glomerular Filt Rate > 60; Glucose 108 mg/dL (75-110); Potassium 3.3 mmol/L (3.4-5.0); Sodium 140 mmol/L (137-145)
[2020-07-09 14:06] LABS: Add Urine Microscopic? YES; Appearance Urine Clear (Clear); Bilirubin Urine Negative (Negative); Blood Urine Negative (Negative); Color Urine Yellow (Yellow); Glucose Urine UA Negative (Negative); Ketones Urine Negative (Negative); Leukocyte Esterase Ur Negative LEU/UL (Negative); Mucus Urine Rare /lpf; Nitrate Urine Negative (Negative); Protein Urine 2+ mg/dL (Negative); RBC Urine 0-2 /hpf (0-2); Specific Grav Ur 1.018 (1.001-1.035); Squamous Epithelial Cell Urine Rare /hpf (Few); WBC Urine 0-3 /hpf
[2020-07-09 14:12] LABS: NT Pro B Type Natriuretic Pept 7670 PG/ML (5-100)
--- NOTE | 2020-07-09 17:30 | PM.IMHP ---
H&P: HPI History of Present Illness Date/Time: 07/09/20 17:00 Chief Complaint: Weakness and confusion. Narrative: This is an 84-year-old male with dementia, hypertension, hyperlipidemia, anemia, diastolic dysfunction, and GERD who presented to the emergency department earlier today via EMS from [facility] with reports of weakness and confusion. At baseline the patient is reportedly fully alert and oriented but forgetful however over the last day or so he has been more confused and has not been feeling well with generalized malaise, decreased appetite, and dry cough. Upon arrival to his home today, his caregiver noticed that he was much more weak than usual, was having difficulties getting up and about, and seemed slower to respond. She took him to [facility] for evaluation where he was found to have a fever and he was subsequently directed to the emergency department. Chest x-ray today shows findings of pulmonary vascular congestion and pneumonia versus pulmonary edema and he is being admitted in this setting. At the time my evaluation he is aware that he is in the hospital but isn't able to provide me much in the way of history aside from what is detailed as above. He had his 2nd shot in the COVID vaccine series within the last 1 to 2 weeks and has not had any sick contacts to his knowledge. He did have a fever earlier today but has no complaints of such at this time. He denies headache, sinus congestion, rhinorrhea, otalgia, odynophagia, chest pain, pleuritic pain, shortness of breath, nausea, vomiting, diarrhea, and dysuria. He also denies auditory and visual changes, focal weakness, and paresthesias. Review of Systems Review of Systems: Narrative: A complete review of systems was conducted but is limited given his increasing confusion. He denies epistaxis, hematemesis, melena, hematochezia, and hematuria. He suffers mainly from short-term memory loss but does on occasion have issues with hallucinations however he is fully aware that he is having hallucinations. No issues at this time. Except as documented, all other systems were reviewed and are negative. [facility] Past Medical History Medical History (Updated 07/09/20 @ 16:38 by Gail Reddy PA-C) Chronic anemia Chronic kidney disease Dementia Diastolic dysfunction Echocardiogram in August 2018 showed normal left ventricular systolic function size, moderate concentric LVH, sigmoid hypertrophy, impaired diastolic relaxation grade 1, and an EF of 65 to 70%. Gastroesophageal reflux disease Hiatal hernia Hypertension Positive colorectal cancer screening using Cologuard test Status post colonoscopy in March [address] Capps. Several polyps were removed consistent with tubular adenomas and tubulovillous adenomas. Transient ischemic attack Vitamin B12 deficiency Surgical History Surgical History (Updated 07/09/20 @ 16:38 by Gail Reddy PA-C) History of bilateral cataract extraction History of cholecystectomy History of colonoscopy with polypectomy (~03/2020) 3 benign polyps removed. History of nasal polypectomy Family History Family History Mother Hypertension Family history of pancreatic cancer Social History Social History (Updated 07/09/20 @ 21:46 by Gail Reddy PA-C) Social History: Surrogate decision maker: Anastasiia Manzano, daughter. Code status: Listed as a full code in the computer. Smoking status: Never smoker Alcohol intake: current Drinks per week: 0 Substance use: never Substance use type: does not use Additional living arrangements comments: The patient lives in his own home in [place] with his dog. He is and has 3 children. A food service substitute comes to the home daily and his children live nearby. 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 Gender identity (if verbalized by the patient): Male [place]
[2020-07-09] MEDS: POTASSIUM CHLORIDE 20 MEQ TABLET PO (18:32)
--- NOTE | 2020-07-09 18:54 | PC.NURSE ---
This patient, Lico Calix, was admitted to 3 [facility] Surg Room 307-01 at 1630. Patient/family oriented to hospital policies and general routines including ID bracelet, bed and alarms, visiting hours, pain management, procedures, bathroom and other care routines, personal items, smoking policy, room service/diet, and visiting hours. Information on how to activate the Rapid Response Team has been discussed. Patient/Family are encouraged to report perceived risks to care and to ask questions if they do not understand what they are told or what they should do.
[2020-07-09 19:29] LABS: Lactate Dehydrogenase 769 U/L (313-618); Magnesium 1.9 mg/dL (1.6-2.3); Potassium 3.5 mmol/L (3.4-5.0)
[2020-07-09 19:51] LABS: Iron 30 ug/dL (49-181)
[2020-07-09 20:01] LABS: Percent Iron Saturation 15 % (20-50)
[2020-07-09 20:10] LABS: Procalcitonin 0.2 ng/mL
[2020-07-09 20:23] LABS: Thyroid Stimulating Hormone Reflex 0.889 uIU/mL (0.465-4.68)
[2020-07-09 20:36] LABS: Folic Acid 13.5 ng/mL (2.76->20)
[2020-07-09 22:14] LABS: Hematocrit 27.2 % (42.0-52.0)
[2020-07-10] VITALS (13 sets, daily range): BP systolic 136–190; BP diastolic 54–82; PULSE 84–98; RESP 14–20; TEMP 36.7–37.2; O2SAT 90–100
[2020-07-10 01:17] LABS: SARS-CoV-2 RNA PCR Negative
[2020-07-10 06:25] LABS: Hematocrit 25.1 % (42.0-52.0); Hemoglobin 8.4 g/dL (14.0-18.0); Mean Corpuscular HGB Conc 33.5 g/dl (32-36); Mean Corpuscular Hemoglobin 37.2 pg (26-34); Mean Corpuscular Volume 111.1 fl (80-100); Mean Platelet Volume 10.9 fl (7.4-10.4); Platelet Count Result 228 k/mm3 (150-375); Red Blood Count 2.26 M/mm3 (4.6-6.20); Red Cell Distribution Width 16.9 % (11.5-14.5); White Blood Count 10.5 K/mm3 (4.5-10.0)
[2020-07-10 06:38] LABS: Anion Gap 5 mmol/L (8-16); Blood Urea Nitrogen 19 mg/dL (9-20); Calcium 8.3 mg/dL (8.4-10.2); Carbon Dioxide 27 mmol/L (22-30); Chloride 108 mmol/L (98-107); Estimated CRCL calculation 51 ml/min; Estimated Glomerular Filt Rate > 60; Glucose 104 mg/dL (75-110); Magnesium 1.9 mg/dL (1.6-2.3); Potassium 3.5 mmol/L (3.4-5.0); Sodium 140 mmol/L (137-145)
[2020-07-10] MEDS: hydrALAZINE HCL 20 MG/ML VIAL 10 MG IV PUSH ×2 (07:16→21:53)
[2020-07-10] MEDS: lisinopriL 5 MG TABLET PO (08:35)
[2020-07-10] MEDS: ATORVASTATIN 10 MG TABLET PO (08:35)
[2020-07-10] MEDS: FLUDROCORTISONE ACETATE 0.1 MG TABLET PO (08:35)
[2020-07-10] MEDS: SERTRALINE HCL 12.5 MG TABLET PO (08:35)
[2020-07-10] MEDS: PANTOPRAZOLE 40 MG TABLET PO (08:35)
--- NOTE | 2020-07-10 11:36 | PCSTNOTE ---
Modified barium swallow study completed. Please see ST inpatient evaluation for details and recommendations.
--- NOTE | 2020-07-10 15:42 | PM.IMPN ---
Progress Note: A&P Assessment and Plan (1) Pneumonia: Code(s): J18.9 - Pneumonia, unspecified organism Status: Acute Assessment and Plan: -Chest x-ray reveals pneumonia versus pulmonary edema -continue ceftriaxone azithromycin -patient passed a swallow study -COVID-19 negative -I do think a component of this is fluid overload. I am going to give him 20 mg of Lasix today and see how he does. -will check for influenza and urine studies for Legionella and pneumococcal pneumonia (2) Hypokalemia: Code(s): E87.6 - Hypokalemia Status: Acute Assessment and Plan: Resolved (3) Diastolic dysfunction: Code(s): I51.89 - Other ill-defined heart diseases Status: Chronic Assessment and Plan: Grade 1 diastolic dysfunction noted on echocardiogram in August 2018. -Chest x-ray today shows pulmonary vascular congestion and possible pulmonary edema -Obtain echocardiogram tomorrow and monitor volume status closely. (4) Hypertension: Qualifiers: Hypertension type: unspecified Qualified Code(s): I10 - Essential (primary) hypertension Code(s): I10 - Essential (primary) hypertension Status: Chronic Assessment and Plan: Last blood pressure 150/54 -her blood pressure was higher on arrival (186/65) b -continue lisinopril -continue Florinef (for orthostatic hypotension) (5) Dementia: Qualifiers: Dementia type: unspecified type Dementia behavioral disturbance: without behavioral disturbance Qualified Code(s): F03.90 - Unspecified dementia without behavioral disturbance Code(s): F03.90 - Unspecified dementia without behavioral disturbance Status: Chronic Assessment and Plan: Patient has been more confused over the last day due to underlying illness and fever. -continue Aricept (6) Gastroesophageal reflux disease: Code(s): K21.9 - Gastro-esophageal reflux disease without esophagitis Status: Acute Assessment and Plan: Continue PPI. (7) Chronic anemia: Code(s): D64.9 - Anemia, unspecified Status: Chronic Assessment and Plan: Studies reveal anemia of chronic disease -await stool for occult blood (patient had 3 colon polyps removed in March 2020) -hemoglobin stable Time Spent With Patient Time with patient: 25 - 35 minutes Subjective Date/time seen: 07/10/20 15:42 Interval history: Pt is a 84-year-old male here for pneumonia. Patient was seen today with sister at bedside. The patient is pleasantly confused but tells me he has been having some shortness of breath and cough. He says it has a wet cough but he is unable to produce a sputum. He is confused where he is and only answer some questions. He denies chest pain, nausea or vomiting. He did not answer any other questions coherently after that. Sister at bedside states that he has a history of falls and is stubborn and does not like to walk with a walker which causes him to fall. He is not usually on oxygen at home. He has had his COVID-19 vaccine. He has some baseline dementia but is much worse in the last few days. Review of Systems Review of Systems: All systems reviewed & are unremarkable except as noted in HPI and below Exam Narrative: Exam Narrative: General: Well developed well nourished patient in NAD HEENT: normocephalic Neck: supple Neuro: Alert and oriented to himself and birthday but no other questions. Follows commands. Cranial nerves 2-12 intact. Equal strength the upper lower extremities 5/5 CV:RRR Resp: No conversational dyspnea, 2 L of oxygen applied. Bilaterally, no wheezing. Abd: Soft, non distended. No pain to palpation. Positive bowel sounds Extremities: No swelling, erythema, or pain to palpation. Objective Data Vital Signs Vital Signs: Vital Signs - 24 hr 07/09/20 16:30 07/09/20 16:31 07/09/20 17:23 Temperature 100.0 F H 98.9 F Pulse Rate 76 67
[2020-07-10] MEDS: FUROSEMIDE INJ 40 MG/4 ML VIAL 20 MG IV PUSH (16:44)
[2020-07-11] VITALS (13 sets, daily range): BP systolic 121–175; BP diastolic 52–78; PULSE 74–99; RESP 16–20; TEMP 36.3–37.4; O2SAT 91–100
[2020-07-11 06:53] LABS: Anion Gap 4 mmol/L (8-16); Blood Urea Nitrogen 21 mg/dL (9-20); Calcium 8.1 mg/dL (8.4-10.2); Carbon Dioxide 29 mmol/L (22-30); Chloride 106 mmol/L (98-107); Estimated CRCL calculation 51 ml/min; Estimated Glomerular Filt Rate > 60; Glucose 107 mg/dL (75-110); Magnesium 1.9 mg/dL (1.6-2.3); Potassium 3.2 mmol/L (3.4-5.0); Sodium 139 mmol/L (137-145)
[2020-07-11 07:10] LABS: Hematocrit 24.1 % (42.0-52.0); Hemoglobin 8.4 g/dL (14.0-18.0); Mean Corpuscular HGB Conc 34.9 g/dl (32-36); Mean Corpuscular Hemoglobin 38.5 pg (26-34); Mean Corpuscular Volume 110.6 fl (80-100); Platelet Count Result 226 k/mm3 (150-375); Red Blood Count 2.18 M/mm3 (4.6-6.20); Red Cell Distribution Width 16.6 % (11.5-14.5); White Blood Count 9.3 K/mm3 (4.5-10.0)
[2020-07-11] MEDS: SERTRALINE HCL 12.5 MG TABLET PO (08:54)
[2020-07-11] MEDS: lisinopriL 5 MG TABLET PO (08:54)
[2020-07-11] MEDS: FLUDROCORTISONE ACETATE 0.1 MG TABLET PO (08:54)
[2020-07-11] MEDS: ATORVASTATIN 10 MG TABLET PO (08:54)
[2020-07-11] MEDS: PANTOPRAZOLE 40 MG TABLET PO (08:54)
[2020-07-11] MEDS: POTASSIUM CHLORIDE 20 MEQ TABLET 40 MEQ PO (08:54)
--- NOTE | 2020-07-11 11:46 | PM.IMPN ---
Progress Note: A&P Assessment and Plan (1) Pneumonia: Code(s): J18.9 - Pneumonia, unspecified organism Status: Acute Assessment and Plan: -Chest x-ray reveals pneumonia versus pulmonary edema -continue ceftriaxone azithromycin for his pneumonia -patient passed a swallow study -COVID-19 negative -he received 1 dose of Lasix yesterday and is doing well and is off oxygen -I ordered influenza and urine studies for Legionella and pneumococcal pneumonia 07/10 but it appears that they have not been done yet. Will notify the nurse -repeat chest x-ray tomorrow (2) Hypokalemia: Code(s): E87.6 - Hypokalemia Status: Acute Assessment and Plan: A little worsened today likely due to Lasix -will supplement today -check magnesium tomorrow (3) Diastolic dysfunction: Code(s): I51.89 - Other ill-defined heart diseases Status: Chronic Assessment and Plan: Grade 1 diastolic dysfunction noted on echocardiogram in August 2018. -Chest x-ray today shows pulmonary vascular congestion and possible pulmonary edema -await echo (4) Hypertension: Qualifiers: Hypertension type: unspecified Qualified Code(s): I10 - Essential (primary) hypertension Code(s): I10 - Essential (primary) hypertension Status: Chronic Assessment and Plan: Last blood pressure 155/77 -her blood pressure was higher on arrival (186/65) b -continue lisinopril -continue Florinef (for orthostatic hypotension) (5) Dementia: Qualifiers: Dementia type: unspecified type Dementia behavioral disturbance: without behavioral disturbance Qualified Code(s): F03.90 - Unspecified dementia without behavioral disturbance Code(s): F03.90 - Unspecified dementia without behavioral disturbance Status: Chronic Assessment and Plan: Patient has been more confused over the last day due to underlying illness and fever. -continue Aricept (6) Gastroesophageal reflux disease: Code(s): K21.9 - Gastro-esophageal reflux disease without esophagitis Status: Acute Assessment and Plan: Continue PPI. (7) Chronic anemia: Code(s): D64.9 - Anemia, unspecified Status: Chronic Assessment and Plan: Studies reveal anemia of chronic disease -await stool for occult blood (patient had 3 colon polyps removed in March 2020) -hemoglobin stable (8) Generalized weakness: Code(s): R53.1 - Weakness Status: Acute Assessment and Plan: Patient saw physical therapy today and was a contact guard with sitting and standing with a shuffling gait but I do not believe he walked with therapy -spoke with MOISE, who states he does better in his own environment with dementia and would like home health if possible. I would like to see him work more with physical therapy and I believe we can probably make this happen since he has caregivers during the day. If he declines or does worse, will need SNF. Patient does have a history of following. Of note, he does have a resting tremor, shuffling gait, dementia and orthostatic hypotension and likely has Parkinson's. The POA states that she has heard someone mentions that he may have that in the past but has not really looked into it. They are going to follow up with a neurologist. (9) Acute metabolic encephalopathy: Code(s): G93.41 - Metabolic encephalopathy Status: Acute Assessment and Plan: Due to above -continue treatment as outlined Additional Plan MOISE Yamilet # [phone]. Paperwork in chart. MOISE would like pt to be a DNR as that is his wish. Subjective Date/time seen: 07/11/20 11:46 Interval history: Pt is a 84-year-old male here for pneumonia. Patient was seen today and is only alert and oriented to himself but is able to follow commands The patient is pleasantly confused but tells me he has been having a cough. He says it has a wet cough
[2020-07-11 19:04] LABS: SARS-CoV-2 RNA PCR Negative
[2020-07-12] VITALS (8 sets, daily range): BP systolic 140–181; BP diastolic 60–113; PULSE 86–100; RESP 18–22; TEMP 36.6–37.2; O2SAT 94–97
[2020-07-12 05:53] LABS: Hematocrit 25.8 % (42.0-52.0); Hemoglobin 8.5 g/dL (14.0-18.0); Mean Corpuscular HGB Conc 32.9 g/dl (32-36); Mean Corpuscular Hemoglobin 35.9 pg (26-34); Mean Corpuscular Volume 108.9 fl (80-100); Mean Platelet Volume 10.9 fl (7.4-10.4); Platelet Count Result 269 k/mm3 (150-375); Red Blood Count 2.37 M/mm3 (4.6-6.20); Red Cell Distribution Width 16.6 % (11.5-14.5); White Blood Count 8.2 K/mm3 (4.5-10.0)
[2020-07-12 06:45] LABS: Alanine Aminotransferase 12 U/L (4-50); Albumin Level 3.2 g/dL (3.5-5.1); Alkaline Phosphatase 60 U/L (38-126); Anion Gap 6 mmol/L (8-16); Aspartate Amino Transferase 21 U/L (17-59); Bilirubin,Total 0.5 mg/dL (0.2-1.3); Blood Urea Nitrogen 27 mg/dL (9-20); Calcium 8.5 mg/dL (8.4-10.2); Carbon Dioxide 26 mmol/L (22-30); Chloride 107 mmol/L (98-107); Estimated CRCL calculation 46 ml/min; Estimated Glomerular Filt Rate > 60; Glucose 102 mg/dL (75-110); Magnesium 1.9 mg/dL (1.6-2.3); Potassium 3.3 mmol/L (3.4-5.0); Sodium 139 mmol/L (137-145)
[2020-07-12 07:20] LABS: CRP 11.9 mg/dL (<1.0)
[2020-07-12] MEDS: SERTRALINE HCL 12.5 MG TABLET PO (08:39)
[2020-07-12] MEDS: PANTOPRAZOLE 40 MG TABLET PO (08:39)
[2020-07-12] MEDS: lisinopriL 5 MG TABLET PO (08:39)
[2020-07-12] MEDS: ATORVASTATIN 10 MG TABLET PO (08:39)
[2020-07-12] MEDS: FLUDROCORTISONE ACETATE 0.1 MG TABLET PO (08:40)
[2020-07-12] MEDS: POTASSIUM CHLORIDE 20 MEQ TABLET 40 MEQ PO (10:53)
[2020-07-12] MEDS: FUROSEMIDE INJ 40 MG/4 ML VIAL 20 MG IV PUSH (10:54)
--- NOTE | 2020-07-12 12:14 | P.PNIM_ITS ---
Progress Note: A&P Assessment and Plan (1) Pneumonia: Code(s): J18.9 - Pneumonia, unspecified organism Status: Acute Assessment and Plan: * Chest XR shows pneumonia vs. pulmonary edema although both may be contr ibuting. * Continue azithromycin and rocephin (day 3). Give another dose of IV Lasix 20mg - repeat CXR this morning with pulmonary edema. * Passed swallow study. COVID negative by PCR. Legionella and pneumococcal antigens are pending. Influenza testing was cancelled for unclear reasons, I will reorder it. Echocardiogram shows normal systolic function EF 55-60%, normal diastolic function; moderate pulmonary hypertension, mild aortic stenosis. * Anticipate may be able to discharge tomorrow. (2) Hypokalemia: Code(s): E87.6 - Hypokalemia Status: Acute Assessment and Plan: * K 3.3 today; may be related to diuretics. Replaced orally. Replace magnesium. Recheck labs in AM. (3) Diastolic dysfunction: Code(s): I51.89 - Other ill-defined heart diseases Status: Chronic Assessment and Plan: * See echocardiogram results above. (4) Hypertension: Qualifiers: Hypertension type: unspecified Qualified Code(s): I10 - Essential (primary) hypertension Code(s): I10 - Essential (primary) hypertension Status: Chronic Assessment and Plan: * Blood pressure reasonable today, last 148/89. Continue lisinopril, continue Florinef (for orthostatic hypotension). * Monitor BP and adjust treatment as needed. (5) Dementia: Qualifiers: Dementia type: unspecified type Dementia behavioral disturbance: witho ut behavioral disturbance Qualified Code(s): F03.90 - Unspecified dementia without behavioral disturbance Code(s): F03.90 - Unspecified dementia without behavioral disturbance Status: Chronic Assessment and Plan: * Patient has been more confused over the last day due to underlying illness and fever however family confirms he is confused at baseline. * Continue Aricept (6) Gastroesophageal reflux disease: Code(s): K21.9 - Gastro-esophageal reflux disease without esophagitis Status: Chronic Assessment and Plan: * Continue PPI. (7) Chronic anemia: Code(s): D64.9 - Anemia, unspecified Status: Chronic Assessment and Plan: * Labs consistent with anemia of chronic disease. * Reordered stool for occult blood (patient had 3 colon polyps removed in March 2020) * Hgb low but stable, no evidence of acute bleeding. Monitor CBC. (8) Generalized weakness: Code(s): R53.1 - Weakness Status: Acute Assessment and Plan: * POA states he does better in his own environment due to dementia and would like home health if possible. * He does have caregivers throughout the day, they are working on getting him caregivers at night. * Continue PT/OT to evaluate his gait to see if home health is a safe discharge option in the next 1-2 days. He does have a resting tremor, shuffling gait, dementia, and orthostatic hypotension and suspect he may have Parkinson's. The POA stated that she has heard someone mentioned that he may have that in the past, but has not really looked into it. Recommend following up with neurologist.
--- NOTE | 2020-07-12 12:14 | PM.IMPN ---
Progress Note: A&P Assessment and Plan (1) Pneumonia: Code(s): J18.9 - Pneumonia, unspecified organism Status: Acute Assessment and Plan: Chest XR shows pneumonia vs. pulmonary edema although both may be contributing. Continue azithromycin and rocephin (day 3). Give another dose of IV Lasix 20mg - repeat CXR this morning with pulmonary edema. Passed swallow study. COVID negative by PCR. Legionella and pneumococcal antigens are pending. Influenza testing was cancelled for unclear reasons, I will reorder it. Echocardiogram shows normal systolic function EF 55-60%, normal diastolic function; moderate pulmonary hypertension, mild aortic stenosis. Anticipate may be able to discharge tomorrow. (2) Hypokalemia: Code(s): E87.6 - Hypokalemia Status: Acute Assessment and Plan: K 3.3 today; may be related to diuretics. Replaced orally. Replace magnesium. Recheck labs in AM. (3) Diastolic dysfunction: Code(s): I51.89 - Other ill-defined heart diseases Status: Chronic Assessment and Plan: See echocardiogram results above. (4) Hypertension: Qualifiers: Hypertension type: unspecified Qualified Code(s): I10 - Essential (primary) hypertension Code(s): I10 - Essential (primary) hypertension Status: Chronic Assessment and Plan: Blood pressure reasonable today, last 148/89. Continue lisinopril, continue Florinef (for orthostatic hypotension). Monitor BP and adjust treatment as needed. (5) Dementia: Qualifiers: Dementia type: unspecified type Dementia behavioral disturbance: without behavioral disturbance Qualified Code(s): F03.90 - Unspecified dementia without behavioral disturbance Code(s): F03.90 - Unspecified dementia without behavioral disturbance Status: Chronic Assessment and Plan: Patient has been more confused over the last day due to underlying illness and fever however family confirms he is confused at baseline. Continue Aricept (6) Gastroesophageal reflux disease: Code(s): K21.9 - Gastro-esophageal reflux disease without esophagitis Status: Chronic Assessment and Plan: Continue PPI. (7) Chronic anemia: Code(s): D64.9 - Anemia, unspecified Status: Chronic Assessment and Plan: Labs consistent with anemia of chronic disease. Reordered stool for occult blood (patient had 3 colon polyps removed in March 2020) Hgb low but stable, no evidence of acute bleeding. Monitor CBC. (8) Generalized weakness: Code(s): R53.1 - Weakness Status: Acute Assessment and Plan: POA states he does better in his own environment due to dementia and would like home health if possible. He does have caregivers throughout the day, they are working on getting him caregivers at night. Continue PT/OT to evaluate his gait to see if home health is a safe discharge option in the next 1-2 days. He does have a resting tremor, shuffling gait, dementia, and orthostatic hypotension and suspect he may have Parkinson's. The POA stated that she has heard someone mentioned that he may have that in the past, but has not really looked into it. Recommend following up with neurologist. (9) Acute metabolic encephalopathy: Code(s): G93.41 - Metabolic encephalopathy Status: Acute Assessment and Plan: Acute metabolic encephalopathy secondary to acute illness vs. hospital delirium. Continue treatment as above. Subjective Date/time seen: 07/12/20 12:00 Interval history: Mr. Calix is an 84y
--- NOTE | 2020-07-12 15:00 | PCPTNOTE ---
The PT treatment was unable to be completed today. Patient confused and combative, family and RN requested that patient be allowed to sleep. Will continue per Plan of Care frequency and duration.
[2020-07-12] MEDS: MAGNESIUM OXIDE 400 MG TABLET PO (16:07)
--- NOTE | 2020-07-12 16:37 | ECHO_ITS ---
Patient Info Name: Lico Calix Age: 84 years : 1935 Gender: Male Ht: 71 in Wt: 182 lbs BSA: 2.04 m2 HR: 95 bpm BP: 158 / 71 mmHg Technical Quality: Fair Exam Date: 07/12/2020 10:14 AM Exam Location: [facility] Patient Status: Inpatient Admit Date: 07/09/2020 Staff Ordering Physician: Gail Reddy PA-C Cigar Packer And Picker: Mecca Ribeiro RDCS Attending Provider: Etta Ang PA-C Referring Physician: Barry ANTON; Exam Type: CA echo doppler color flow Study Info Indications J81.1 - Chronic pulmonary edema I50.30 - Unspecified diastolic (congestive) heart failure Complete two-dimensional, color flow and Doppler transthoracic echocardiogram is performed. Summary 1. Complete two-dimensional, color flow and Doppler transthoracic echocardiogram is performed. 2. Normal LV size, mild LVH, sigmoid hypertrophy; normal LV systolic function, EF 55-60%; normal diastolic function. Normal mitral valve structure, mild MR. Aortic valve sclerosis, mild aortic stenosis, aortic valve area 2 cm2, mild aortic regurgitation. Trace TR, moderate pulmonary hypertension, RVSP 58 mmHg. Left Ventricle Left ventricular chamber dimension is normal. Left ventricular systolic function is normal, estimated at 55-60%. There is mildly increased left ventricular wall thickness. The left ventricular diastolic function is normal. Right Ventricle Right ventricular chamber dimension is normal. Right ventricular systolic function is normal. Left Atria Left atrial chamber dimension is mildly enlarged. Right Atria Right atrial chamber dimension is normal. Aortic Valve There is mild aortic valve sclerosis. There is mild aortic valve stenosis with a peak velocity of 183 cm/s, mean gradient of 7 mmHg, and aortic valve area of 2.4 cm2. There is mild aortic valve regurgitation. Pulmonic Valve The pulmonic valve is normal. Mitral Valve The mitral valve has normal leaflets. There is mild mitral valve regurgitation. Tricuspid Valve The tricuspid valve leaflets are normal. There is trace tricuspid valve regurgitation. Moderate pulmonary hypertension, estimated pulmonary arterial systolic pressure is 58 mmHg. Pericardium/Pleural The pericardium appears normal. Inferior Vena Cava Normal inferior vena cava with >50% collapse upon inspiration consistent with normal right atrial pressure, 10 mmHg. Aorta The aortic root size at the sinus of Valsalva is normal. Left Ventricular Outflow Tract Name Value Normal LVOT 2D LVOT Diameter 2.0 cm LVOT Doppler LVOT Peak Gradient 6 mmHg LVOT Mean Gradient 4 mmHg LVOT VTI 27 cm LVOT VTI/AV VTI Ratio 0.8 LVOT Stroke Volume 83 ml LVOT CO 7.5 l/min LVOT CI 3.7 l/min/m2 Pulmonic Valve Name Value Normal
[2020-07-12] MEDS: hydrALAZINE HCL 20 MG/ML VIAL 10 MG IV PUSH (20:31)
[2020-07-12] MEDS: ACETAMINOPHEN 325 MG TABLET 650 MG PO (20:31)
[2020-07-13 06:00] VITALS: BP 174/73; PULSE 81; RESP 18; TEMP 36.6; O2SAT 96
[2020-07-13 06:21] LABS: Basophils Percent Auto 0.5 % (0.2-1.2); Eosinophils Absolute Auto 0.2 K/mm3 (0-0.3); Eosinophils Percent Auto 3.9 % (0-4.4); Hematocrit 24.8 % (42.0-52.0); Hemoglobin 8.2 g/dL (14.0-18.0); Immature Granulocyte Absolute 0.01 K/mm3 (0.00-0.031); Immature Granulocyte Percent A 0.2 % (0-0.5); Lymphocytes Absolute Auto 2.58 K/mm3 (0.9-3.2); Lymphocytes Percent Auto 45.7 % (18.3-44.2); Mean Corpuscular HGB Conc 33.1 g/dl (32-36); Mean Corpuscular Hemoglobin 35.7 pg (26-34); Mean Corpuscular Volume 107.8 fl (80-100); Mean Platelet Volume 10.5 fl (7.4-10.4); Monocytes Absolute Auto 0.5 K/mm3 (0.1-0.6); Monocytes Percent Auto 9.4 % (2.6-8.5); Neutrophils Absolute Auto 2.3 K/mm3 (1.3-6.7); Neutrophils Percent Auto 40.3 % (45.5-73.1); Platelet Count Result 289 k/mm3 (150-375); Red Cell Distribution Width 16.2 % (11.5-14.5); White Blood Count 5.6 K/mm3 (4.5-10.0)
[2020-07-13 06:30] LABS: Anion Gap 5 mmol/L (8-16); Blood Urea Nitrogen 22 mg/dL (9-20); Calcium 8.4 mg/dL (8.4-10.2); Carbon Dioxide 28 mmol/L (22-30); Chloride 107 mmol/L (98-107); Estimated CRCL calculation 51 ml/min; Estimated Glomerular Filt Rate > 60; Glucose 94 mg/dL (75-110); Potassium 3.2 mmol/L (3.4-5.0); Sodium 140 mmol/L (137-145)
[2020-07-13 08:00] VITALS: PULSE 89; RESP 18; O2SAT 95
[2020-07-13] MEDS: FLUDROCORTISONE ACETATE 0.1 MG TABLET PO (08:19)
[2020-07-13] MEDS: SERTRALINE HCL 12.5 MG TABLET PO (08:19)
[2020-07-13] MEDS: POTASSIUM CHLORIDE 20 MEQ TABLET 60 MEQ PO (08:19)
[2020-07-13] MEDS: MAGNESIUM OXIDE 400 MG TABLET PO (08:19)
[2020-07-13] MEDS: PANTOPRAZOLE 40 MG TABLET PO (08:19)
[2020-07-13] MEDS: ATORVASTATIN 10 MG TABLET PO (08:19)
[2020-07-13] MEDS: lisinopriL 5 MG TABLET PO (08:20)
[2020-07-13 10:06] VITALS: BP 143/98; BP 195/85; PULSE 93; PULSE 97; RESP 18; O2SAT 94; O2SAT 95
[2020-07-13 10:07] VITALS: BP 120/93; PULSE 89; RESP 18; O2SAT 95
--- NOTE | 2020-07-13 13:26 | PM.DS ---
DS: Admitting Diagnosis Admitting Diagnosis Admitting Diagnosis: Pneumonia DS: Discharge Diagnosis Discharge Diagnosis (1) Pneumonia: Code(s): J18.9 - Pneumonia, unspecified organism Status: Acute Assessment and Plan: Date of Admission 07/09/20 Date of Discharge 07/13/20 Mr. Calix is an 84yo M with dementia, hypertension, chronic anemia, orthostatic hypotension, GERD who presented to the ED for evaluation of fever and increased confusion more than his baseline. UA grossly normal. Chest x-ray demonstrated evidence of pneumonia vs. pulmonary edema vs. both thus he was treated for both. He was treated with 4 days of IV antibiotics with azithromycin Rocephin as well as multiple doses of IV Lasix. He was hypoxic on arrival tolerating low-flow supplemental oxygen via nasal cannula, and was weaned down to room air tolerating room air with adequate O2 saturations prior to discharge. COVID negative by PCR, urine pneumococcal and Legionella antigens are negative. Echocardiogram detailed below. His confusion beyond his baseline may be secondary to acute infection although it is suspected hospital delirium is also contributing at this point. He is a bit weak and requires multiple verbal cues for safety with walking, however family notes from a cognitive standpoint he will be better suited at home in his familiar environment. Home health therapy is arranged and he has caregivers at home as well. Discharge planning discussed with family at bedside who is comfortable with discharge plan today. Overall he is clinically improved and is prescribed oral antibiotics to complete the course. He is hemodynamically stable for discharge on 07/13/2020 with instructions to follow-up with PCP. Chest XR shows pneumonia vs. pulmonary edema although both may be contributing. Treated with azithromycin and Rocephin. Treated with 2 separate doses of IV Lasix 20mg - repeat CXR showed pulmonary edema. Passed swallow study. COVID negative by PCR. Legionella and pneumococcal antigens are negative. Echocardiogram shows normal systolic function EF 55-60%, normal diastolic function; moderate pulmonary hypertension, mild aortic stenosis. (2) Hypokalemia: Code(s): E87.6 - Hypokalemia Status: Acute Assessment and Plan: K and magnesium mildly low and replaced. (3) Diastolic dysfunction: Code(s): I51.89 - Other ill-defined heart diseases Status: Chronic Assessment and Plan: See echocardiogram results above. (4) Hypertension: Qualifiers: Hypertension type: unspecified Qualified Code(s): I10 - Essential (primary) hypertension Code(s): I10 - Essential (primary) hypertension Status: Chronic Assessment and Plan: Blood pressures reasonable maintained on home lisinopril, continue Florinef (for orthostatic hypotension). (5) Dementia: Qualifiers: Dementia type: unspecified type Dementia behavioral disturbance: without behavioral disturbance Qualified Code(s): F03.90 - Unspecified dementia without behavioral disturbance Code(s): F03.90 - Unspecified dementia without behavioral disturbance Status: Chronic Assessment and Plan: Patient has been more confused over the last day due to underlying illness and fever however family confirms he is confused at baseline. Continue Aricept at discharge (6) Gastroesophageal reflux disease: Code(s): K21.9 - Gastro-esophageal reflux disease without esophagitis Status: Chronic Assessment and Plan: Continue PPI. (7) Chronic anemia: Code(s): D64.9 - Anemia, unspecified Status: Chronic Assessment and Plan: Labs consistent wi
[2020-07-13 14:00] VITALS: BP 155/56; PULSE 91; RESP 18; TEMP 36.7; O2SAT 98
[2020-07-15 16:20] LABS: Pneumococcal Antigen Urine Not Detected (Not Detected)
[2020-07-15 16:33] LABS: Legionella pneumophila Ag Ur Not Detected (Not Detected)
== END 2020-07-13 15:30 | disposition home health service (06) | DRG 193 ==
LOC: ANHED 12:51 → ANH3MEDSUR 07-10 06:51
PROVIDERS: Physician Assistant; Admitting Provider Internal Medicine; Emergency Provider Emergency Medicine; PCP Family Medicine; Visit Provider Physician Assistant
DX: J18.9 Pneumonia, unspecified organism (principal); G93.41 Metabolic encephalopathy; Z20.822 Contact with and (suspected) exposure to COVID-19; F03.90 Unspecified dementia, unspecified severity, without behavioral disturbance, psychotic disturbance, mood disturbance, and anxiety; I13.10 Hypertensive heart and chronic kidney disease without heart failure, with stage 1 through stage 4 chronic kidney disease, or unspecified chronic kidney disease; N18.9 Chronic kidney disease, unspecified; I95.1 Orthostatic hypotension; E87.6 Hypokalemia; R53.1 Weakness; K21.9 Gastro-esophageal reflux disease without esophagitis; K44.9 Diaphragmatic hernia without obstruction or gangrene; E78.5 Hyperlipidemia, unspecified; D64.9 Anemia, unspecified; Z66 Do not resuscitate; Z79.899 Other long term (current) drug therapy; Z86.73 Personal history of transient ischemic attack (TIA), and cerebral infarction without residual deficits; Z98.42 Cataract extraction status, left eye; Z98.41 Cataract extraction status, right eye
CPT/HCPCS: 36415; 51701; 70450; 71045; 71046; 80048; 80053; 80076; 81001; 82607; 82728; 82746; 83540; 83550; 83605; 83615; 83735; 83880; 84132; 84145; 84443; 85014; 85018; 85025; 85027; 85610; 85730; 86140; 86850; 86900; 86901; 87040; 87449; 87804; 87899; 92611; 93005; 93306; 96365; 96367; 96375; 97110; 97116; 97161; 97165; 97530; 97535; 99285; A9270; C9803; J0131; J0360; J0456; J0696; J1940; U0003; U0005

== ENCOUNTER 2020-07-20 11:22 | Outpatient (NON) | payer MEDICARE, SELFPAY ==
[2020-07-20 12:28] LABS: Anion Gap 4 mmol/L (8-16); Blood Urea Nitrogen 19 mg/dL (9-20); Calcium 8.2 mg/dL (8.4-10.2); Carbon Dioxide 29 mmol/L (22-30); Chloride 108 mmol/L (98-107); Estimated Glomerular Filt Rate 52; Glucose 105 mg/dL (75-110); Potassium 4.4 mmol/L (3.4-5.0); Sodium 141 mmol/L (137-145)
== END 2020-07-20 11:23 | disposition home or self-care (01) ==
PROVIDERS: PCP Family Medicine; Visit Provider Physician Assistant
DX: E87.6 Hypokalemia (principal)
CPT/HCPCS: 80048

== ENCOUNTER 2020-10-15 15:51 | Emergency (ER) | payer MEDICARE, SELFPAY ==
--- NOTE | 2020-10-15 15:59 | ECG_ITS ---
Measurements Intervals [place] Rate: 88 P: -1 ID: 145 QRS: 1 QRSD: 90 T: 6 QT: 377 QTc: 458 Interpretive Statements SINUS RHYTHM EARLY PRECORDIAL R/S TRANSITION NONSPECIFIC T-WAVE ABNORMALITY- ANTEROLAT/INF LEADS BASELINE ARTIFACT- I, II, III, AVR, AVL, AVF, V1, V3-V5 BORDERLINE ECG Electronically Signed On 10-15-2020 17:38:39 CDT by Andrea Jones D.O.
[2020-10-15 16:01] VITALS: BP 148/65; PULSE 99; RESP 18; TEMP 37.3; O2SAT 97
--- NOTE | 2020-10-15 16:23 | ED.GENADULT ---
HPI - General Adult General Chief complaint: Shortness of Breath/Dyspnea Stated complaint: CHEST PAIN/SOB/LEGS SWELLING/DIARRHEA Time Seen by Provider: 10/15/20 16:00 Source: patient, family (granddaughter) and RN notes reviewed Mode of arrival: ambulatory Limitations: dementia History of Present Illness HPI narrative: 85-year-old male presents with family who complains of chest pain, shortness of breath, trouble sleeping, and swelling of lower legs for 1 day. Granddaughter reports increasing swelling of lower extremities throughout the day, elevated blood pressure, and diarrhea which started today at noon. No treatment. No exacerbating factors. No family history of sudden . Denies diaphoresis. Denies fever or chills. Denies nausea, vomiting, or abdominal pain. Denies leg long car rides, history of DVT, PE, or LE edema. History of Dementia, CHF, HTN, and orthostatic hypotension. Remains active. The patient's granddaughter reports he has not been diagnosed with COVID-19. The patient's granddaughter reports he is not waiting for the results of a COVID-19 lab test. The patient's granddaughter reports he does not have weakness, fatigue, or myalgia. The patient's granddaughter reports he does not have a new or worsening cough. The patient's granddaughter reports he does not have any rhinorrhea, congestion, loss of taste or smell, and sore throat. Denies recent traveling. Denies concerns for COVID-19 or exposures. At this time, the patient is not suspected of having COVID-19. Some parts of this dictation were generated by voice recognition software and may contain typographical and/or grammatical inaccuracies. Related Data Allergies Allergy/AdvReac Type Severity Reaction Status Date / Time No Known Allergies Allergy Verified 10/15/20 16:05 Review of Systems Review of Systems: Narrative: CONSTITUTIONAL: Denies fever, chills, sweats. Complaints of sleeping problems. EYES: Denies visual changes, redness, discharge. ENT: Denies rhinorrhea, congestion, sore throat, otalgia. CARDIOVASCULAR: Complains of midsternal chest pain, BLE edema, elevated blood pressure readings. Denies palpitations, diaphoresis. RESPIRATORY: Denies wheezing, cough. Complains of dyspnea. GASTROINTESTINAL: Denies abdominal pain, nausea, vomiting. Complaints of diarrhea. GENITOURINARY: Denies dysuria, hematuria, abnormal discharge. SKIN: Denies rash or itching. MUSCULOSKELETAL: Denies acute back pain or myalgia. NEUROLOGIC: Denies numbness or focal weakness. PSYCHIATRIC: Denies anxiety or depression. All systems reviewed & are unremarkable except as noted in HPI and below. [facility] Past Medical History Medical History Chronic anemia Chronic kidney disease Dementia Diastolic dysfunction Echocardiogram in August 2018 showed normal left ventricular systolic function size, moderate concentric LVH, sigmoid hypertrophy, impaired diastolic relaxation grade 1, and an EF of 65 to 70%. Gastroesophageal reflux disease Hiatal hernia Hypertension Positive colorectal cancer screening using Cologuard test Status post colonoscopy in March [address] Capps. Several polyps were removed consistent with tubular adenomas and tubulovillous adenomas. Transient ischemic attack Vitamin B12 deficiency Surgical History Surgical History History of bilateral cataract extraction History of cholecystectomy History of colonoscopy with polypectomy (~03/2020) 3 benign polyps removed. History of nasal polypectomy Family History Family History Mother Hypertension Pancreatic cancer Social History Social History Social History: Surrogate decision maker: Anastasiia Manzano, daughter. Code status: DNR/DNI Smoking status: Never smoker
[2020-10-15 16:41] VITALS: BP 150/65; PULSE 82; RESP 18; TEMP 37.6; O2SAT 97
== END 2020-10-15 16:45 | disposition short-term general hospital (02) ==
PROVIDERS: Emergency Provider Nurse Practitioner Family; PCP Family Medicine
DX: R60.0 Localized edema (principal); I50.9 Heart failure, unspecified; D64.9 Anemia, unspecified; I12.9 Hypertensive chronic kidney disease with stage 1 through stage 4 chronic kidney disease, or unspecified chronic kidney disease; N18.9 Chronic kidney disease, unspecified; Z86.73 Personal history of transient ischemic attack (TIA), and cerebral infarction without residual deficits; Z98.42 Cataract extraction status, left eye; Z98.41 Cataract extraction status, right eye
CPT/HCPCS: 93005; 99215; G0463

== ENCOUNTER 2020-10-15 17:08 | Inpatient (IN) | payer MEDICARE, SELFPAY ==
[2020-10-15] VITALS (27 sets, daily range): BP systolic 141–166; BP diastolic 67–86; PULSE 79–103; RESP 16–24; TEMP 35.9–36.8; O2SAT 90–97; BMI 24.0
--- NOTE | ~2020-10-15 | XR_ITS ---
EXAMINATION: XR chest 2V EXAM DATE: 10/15/2020 17:30 INDICATION: Dyspnea; hx of HTN, prev [place], dementia. TECHNIQUE: Frontal and lateral projections of the chest obtained and reviewed. Comparison is made to prior examination from 07/12/2020. FINDINGS: Small bilateral pleural effusions. The cardiac silhouette is enlarged. There is indistinct reticulation with a bibasal predominance which may indicate pulmonary edema. No confluent consolidat ion or pneumothorax. Patient has diffuse idiopathic skeletal hyperostosis (DISH). IMPRESSION: Findings suspicious for CHF exacerbation. Reviewed, dictated and finalized at location A.
--- NOTE | 2020-10-15 17:17 | ECG_ITS ---
Measurements Intervals [place] Rate: 94 P: 19 NJ: 164 QRS: 7 QRSD: 92 T: 31 QT: 372 QTc: 466 Interpretive Statements SINUS RHYTHM VENTRICULAR PREMATURE COMPLEX BORDERLINE T WAVE ABNORMALITY- LATERAL LEADS BORDERLINE ECG Electronically Signed On 10-16-2020 6:51:32 CDT by Andrea Jones D.O.
[2020-10-15 18:20] LABS: Basophils Percent Auto 0.3 % (0.2-1.2); Eosinophils Percent Auto 0.4 % (0-4.4); Lymphocytes Absolute Auto 4.98 K/mm3 (0.9-3.2); Lymphocytes Percent Auto 53.3 % (18.3-44.2); Mean Corpuscular HGB Conc 32.6 g/dl (32-36); Mean Corpuscular Hemoglobin 33.5 pg (26-34); Mean Corpuscular Volume 102.7 fl (80-100); Mean Platelet Volume 10.6 fl (7.4-10.4); Monocytes Absolute Auto 0.8 K/mm3 (0.1-0.6); Monocytes Percent Auto 8.5 % (2.6-8.5); Neutrophils Absolute Auto 3.5 K/mm3 (1.3-6.7); Neutrophils Percent Auto 37.5 % (45.5-73.1); Platelet Count Result 300 k/mm3 (150-375); Red Blood Count 1.88 M/mm3 (4.6-6.20); Red Cell Distribution Width 17.2 % (11.5-14.5); White Blood Count 9.3 K/mm3 (4.5-10.0)
[2020-10-15 18:25] LABS: Hemoglobin 6.3 g/dL (14.0-18.0)
[2020-10-15 18:26] LABS: Hematocrit 19.3 % (42.0-52.0)
[2020-10-15 18:30] LABS: Anion Gap 10 mmol/L (8-16); Blood Urea Nitrogen 27 mg/dL (9-20); Calcium 9.1 mg/dL (8.4-10.2); Carbon Dioxide 25 mmol/L (22-30); Chloride 105 mmol/L (98-107); Estimated CRCL calculation 38 ml/min; Estimated Glomerular Filt Rate 57; Glucose 116 mg/dL (65-110); Potassium 3.7 mmol/L (3.4-5.0); Sodium 140 mmol/L (137-145)
[2020-10-15 18:42] LABS: Hypochromasia 1+ (NORMAL); Platelet Estimate Adequate (Adequate)
[2020-10-15 18:43] LABS: Anisocytosis 2+ (NORMAL)
[2020-10-15 19:56] LABS: NT Pro B Type Natriuretic Pept 19600 pg/mL (5-100)
--- NOTE | 2020-10-15 20:22 | ED.SOB ---
HPI - SOB/Dyspnea General Chief Complaint: Shortness of Breath/Dyspnea Stated Complaint: leg swelling/cp/sob Time Seen by Provider: 10/15/20 19:01 Source: RN notes reviewed and other (caregiver) Mode of arrival: EMS Limitations: dementia History of Present Illness HPI Narrative: This is an 85 year old male with history of orthostatic hypotension, hyperlipidemia, dementia who presents from home for evaluation of chest pain, sob and leg swelling. Patient's childcare worker is at bedside to give history. She states patient was noticed to have bilateral leg swelling last night. He also developed diarrhea last night and today. She denies blood in his stool. She decided to have patient be evaluated in ER because he started complaining about difficulty breathing when he was walking back from the bathroom today. Patient states he had midsternal nonradiating chest pain with sob early but he denies any currently. He denies cough, nausea, vomiting, abdominal pain or dizziness. Related Data Allergies Allergy/AdvReac Type Severity Reaction Status Date / Time No Known Allergies Allergy Verified 10/15/20 16:05 Review of Systems Review of Systems: ROS unobtainable: Yes other (dementia) [facility] Past Medical History Medical History Chronic anemia Chronic kidney disease Dementia Diastolic dysfunction Echocardiogram in August 2018 showed normal left ventricular systolic function size, moderate concentric LVH, sigmoid hypertrophy, impaired diastolic relaxation grade 1, and an EF of 65 to 70%. Gastroesophageal reflux disease Hiatal hernia Hypertension Positive colorectal cancer screening using Cologuard test Status post colonoscopy in March [address] Capps. Several polyps were removed consistent with tubular adenomas and tubulovillous adenomas. Transient ischemic attack Vitamin B12 deficiency Surgical History Surgical History History of bilateral cataract extraction History of cholecystectomy History of colonoscopy with polypectomy (~03/2020) 3 benign polyps removed. History of nasal polypectomy Family History Family History (Updated 10/16/20 @ 06:33 by Emma Anthony DO) Mother Hypertension Pancreatic cancer Social History Social History (Updated 10/16/20 @ 06:33 by Emma Anthony DO) Social History: Surrogate decision maker: Anastasiia Manzano, daughter. Code status: DNR/DNI Smoking status: Never smoker Second hand tobacco smoke exposure: No Alcohol intake: current Drinks per week: 1 Substance use: never Substance use type: does not use Additional living arrangements comments: The patient lives in his own home in [place] with his dog. He is and has 3 children. A production hardener comes to the home daily and his children live nearby. 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 Gender identity (if verbalized by the patient): Male Spiritual care concerns: No Exam Const: General: no acute distress and alert Other: oriented to person Resp: Effort & Inspection: normal respiratory effort and no retractions Auscultation: clear to auscultation bilaterally Cardio: Rate: regular rate Rhythm: regular rhythm Heart sounds: Murmur heart sound present GI: GI Palp: Yes Soft to palpation, No Tenderness to palpation present (GI) and No Guarding due to palpation present (GI) Auscultation: normal bowel sounds Skin: General skin exam: pallor Neuro: General: moves all extremities and CN's II-XI intact bilaterally Extrem: General: edema bilateral Psych: Mental Status: mental status grossly normal Affect: normal affect Course Consultations Consultation #1: I discussed case with Gabrielle. She accepts patient to IMU with cardiology consult. AGrees with transfusion Date: 10/15/20 Time: 22:00 Consultation #2: I have discussed josseline
[2020-10-15 20:40] LABS: INR 1.1; Prothrombin Time 14.1 Seconds (11.1-14.7)
[2020-10-15 20:41] LABS: Partial Thromboplastin Time 29.6 SECONDS (22.3-36.8)
[2020-10-15 20:47] LABS: Alanine Aminotransferase 21 U/L (4-50); Albumin Level 3.8 g/dL (3.5-5.1); Alkaline Phosphatase 68 U/L (38-126); Aspartate Amino Transferase 77 U/L (17-59); Bilirubin,Total 0.5 mg/dL (0.2-1.3)
[2020-10-15] MEDS: FUROSEMIDE INJ 40 MG/4 ML VIAL IV PUSH (20:52)
[2020-10-15 22:22] LABS: Iron 170 ug/dL (49-181)
[2020-10-15] MEDS: ASPIRIN 81 MG CHEWABLE TABLET 324 MG PO (22:24)
[2020-10-15 22:32] LABS: Percent Iron Saturation 85 % (20-50)
[2020-10-15 22:56] LABS: Folic Acid 9.7 ng/mL (2.76->20)
--- NOTE | 2020-10-15 23:25 | PC.NURSE ---
This patient, Lico Calix, was admitted to IMU Room 205-01. Patient/family oriented to hospital policies and general routines including ID bracelet, bed and alarms, visiting hours, pain management, procedures, bathroom and other care routines, personal items, smoking policy, room service/diet, and visiting hours. Information on how to activate the Rapid Response Team has been discussed. Patient/Family are encouraged to report perceived risks to care and to ask questions if they do not understand what they are told or what they should do.
[2020-10-16] VITALS (24 sets, daily range): BP systolic 140–202; BP diastolic 51–98; PULSE 76–105; RESP 16–26; TEMP 35.7–36.6; O2SAT 92–100
[2020-10-16] MEDS: FUROSEMIDE INJ 40 MG/4 ML VIAL IV PUSH ×3 (04:40→20:59)
--- NOTE | 2020-10-16 04:43 | PC.NURSE ---
Patient developed wheezing and crackles into the second unit of blood. B/P 202/94, O2 sat 90% on 2L, increased to 4L. O2 sat now 95%. Lasix 40mg IVP given. Orders to continue the blood. Running it at 100cc/hr to finish within 4 hours. Orders received from Dr. Anthony.
--- NOTE | 2020-10-16 06:24 | PM.IMHP ---
H&P: HPI History of Present Illness Date/Time: 10/16/20 06:25 Chief Complaint: shortness of breath Narrative: 85-year-old male with past medical history of dementia, hypertension, CHF, GERD and orthostatic hypotension who presented to the ER from urgent care via EMS due to shortness of breath. At urgent care the patient was satting 90% on room air was placed on 2 L nasal cannula. Patient had bilateral lower extremity swelling. The patient has had increased confusion for a while . The patient's caregiver reported that the patient had bilateral leg swelling that started on the . He had also reported dyspnea on exertion starting on the morning of the when he walked back from the bathroom. He also reported midsternal chest pain that was reportedly nonradiating. He denied any chest pain by the time he got to the ER. His Hemoccult stool in ER was reportedly negative. the patient is currently only oriented to Name and he knows that he has in [place]. He thinks the month is March. As the night is for aggressive patient has become more confused. He is told nursing staff multiple times that he will not live through today and that he is ready to go to [facility]. Nursing staff states the patient had increased wheezing earlier in the night but this has improved after Lasix. He had 800 mL of urine output and 1 episode of urinary incontinence after Lasix administration during his 2nd unit of blood. Review of Systems Review of Systems: ROS unobtainable: Yes unobtainable due to medical condition ( Limited due to patient's history of dementia.) [facility] Past Medical History Medical History Chronic anemia Chronic kidney disease Dementia Diastolic dysfunction Echocardiogram in August 2018 showed normal left ventricular systolic function size, moderate concentric LVH, sigmoid hypertrophy, impaired diastolic relaxation grade 1, and an EF of 65 to 70%. Gastroesophageal reflux disease Hiatal hernia Hypertension Positive colorectal cancer screening using Cologuard test Status post colonoscopy in March [address] Capps. Several polyps were removed consistent with tubular adenomas and tubulovillous adenomas. Transient ischemic attack Vitamin B12 deficiency Surgical History Surgical History History of bilateral cataract extraction History of cholecystectomy History of colonoscopy with polypectomy (~03/2020) 3 benign polyps removed. History of nasal polypectomy Family History Family History (Updated 10/16/20 @ 06:33 by Emma Anthony DO) Mother Hypertension Pancreatic cancer Social History Social History (Updated 10/16/20 @ 06:33 by Emma Anthony DO) Social History: Surrogate decision maker: Anastasiia Manzano, daughter. Code status: DNR/DNI Smoking status: Never smoker Second hand tobacco smoke exposure: No Alcohol intake: current Drinks per week: 1 Substance use: never Substance use type: does not use Additional living arrangements comments: The patient lives in his own home in [place] with his dog. He is and has 3 children. A printing sign machine operator comes to the home daily and his children live nearby. 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 Gender identity (if verbalized by the patient): Male Spiritual care concerns: No Meds Home Medications and Allergies Home Medications Medication Instructions Recorded Confirmed Type atorvastatin 10 mg tablet 10 mg PO DAILY #90 tablet 07/19/20 10/15/20 Rx fludrocortisone 0.1 mg tablet See Rx Instructions .ROUTE 07/19/20 10/15/20 Rx .COMPLEX #30 tablet lisinopril 5 mg tablet 5 mg PO DAILY #90 tablet 07/19/20 10/15/20 Rx omeprazole 40 mg capsule,delayed 40 mg PO DAILY #90 cap 07/19/20 10/15/20 Rx release midodrine 5 mg tablet 5 mg PO TID #90 tablet 09/12/20 10/15/20 R
[2020-10-16 07:15] LABS: Hematocrit 28.4 % (42.0-52.0); Hemoglobin 9.7 g/dL (14.0-18.0); Mean Corpuscular HGB Conc 34.2 g/dl (32-36); Mean Corpuscular Hemoglobin 32.9 pg (26-34); Mean Corpuscular Volume 96.3 fl (80-100); Mean Platelet Volume 10.9 fl (7.4-10.4); Platelet Count Result 300 k/mm3 (150-375); Red Blood Count 2.95 M/mm3 (4.6-6.20); Red Cell Distribution Width 17.5 % (11.5-14.5)
[2020-10-16 07:30] LABS: Anion Gap 11 mmol/L (8-16); Blood Urea Nitrogen 26 mg/dL (9-20); Calcium 9.1 mg/dL (8.4-10.2); Carbon Dioxide 24 mmol/L (22-30); Chloride 104 mmol/L (98-107); Estimated CRCL calculation 42 ml/min; Estimated Glomerular Filt Rate 57; Glucose 142 mg/dL (65-110); Potassium 3.7 mmol/L (3.4-5.0); Sodium 139 mmol/L (137-145)
--- NOTE | 2020-10-16 07:30 | PC.NURSE ---
I called Yamilet Gaytan and updated her with the events of the night. She is the POA and grand daughter. She will be in to see patient this am.
--- NOTE | 2020-10-16 09:09 | PM.CNCAR ---
Assessment and Plan Assessment and plan (1) Type 2 myocardial infarction due to anemia: Code(s): D64.9 - Anemia, unspecified; I21.A1 - Myocardial infarction type 2 Status: Acute Assessment and Plan: 85-year-old male with systemic hypertension, orthostatic hypotension, moderate pulmonary hypertension, chronic macrocytic anemia, dyslipidemia, dementia. Patient admitted with chest pain, shortness of breath. Baseline functional status not clear. Patient found to have severe anemia with significant drop in the hemoglobin compared to his baseline chronic macrocytic anemia. Troponins are significantly elevated which are slightly trending downwards. EKG shows sinus rhythm with nonspecific ST-T abnormality. Recent echocardiogram showed normal LV systolic function. Troponin elevation likely secondary to profound anemia, although underlying CAD cannot be completely ruled out. Patient has DNR status. - Transfuse PRBCs, keep hemoglobin more than 7 grams/deciliters - hold antiplatelet treatment for now - evaluation of anemia as per primary team - patient will require diuresis with furosemide due to pulmonary edema - Repeat echocardiogram has been ordered, results are pending at this time. Patient has DNR status with multiple comorbidities including what appears to be advanced dementia and severe anemia. Conservative cardiac management would be anticipated unless otherwise indicated. (2) Anemia: Code(s): D64.9 - Anemia, unspecified Status: Acute Assessment and Plan: transfuse PRBCs. Further evaluation of anemia as per primary team (3) CHF exacerbation: Qualifiers: Heart failure type: unspecified Qualified Code(s): I50.9 - Heart failure, unspecified Code(s): I50.9 - Heart failure, unspecified Status: Acute Assessment and Plan: diuresis with furosemide. Repeat echocardiogram. History of Present Illness History of Present Illness Consult date/time: 10/16/20 09:09 DATE OF CONSULT:10/16/2020 REASON FOR CONSULT: NSTEMI REQUESTING PHYSICIAN:MD Amador CHIEF COMPLAINT: chest pain, shortness of breath HPI: 85-year-old male with systemic hypertension, orthostatic hypotension, moderate pulmonary hypertension, chronic macrocytic anemia, dyslipidemia, dementia. Patient was brought to [facility] ER from urgent care via EMS on 10/15/2020 with complaints of shortness of breath and chest discomfort. At urgent care the patient was was reportedly saturating at 90% on room air and was placed on 2 L nasal cannula. Patient has dementia, and is unable to provide details medical information. Information is gathered from the patient, review of the chart and from the staff. Patient has baseline anemia, and was found to have significant drop in his hemoglobin upon arrival at 6.3 grams/deciliters. He has received packed red blood cells with improvement in the hemoglobin. Initial fecal occult blood was reportedly negative. Serial troponins are elevated with peak troponin level of 21.4, which is slightly trending [place]wards[place] [address]. EKG on my personal evaluation showed sinus rhythm with nonspecific ST-T abnormality. Subsequent EKG showed sinus rhythm with PVC, no major other changes. Chest x-ray shows pulmonary vascular congestion. Recent echocardiogram from 07/12/2020 showed mild LVH, EF 55-60%, mild MR, mild , mild AR, moderate pulmonary hypertension, RVSP 58 mmHg. Reason For Visit: NSTEMI, CHF, Severe Anemia Review of Systems Review of Systems: Narrative: As per HPI, other review of systems difficult to obtain as patient has dementia. He presented with shortness of breath, chest pain and generalized weakness. Information gathered from the review of the chart and from the staff. Some information was also gathered from the patient. [facility] Past Medical History Medical History Chronic anemia C
[2020-10-16] MEDS: DONEPEZIL HCL 5 MG TABLET PO (11:35)
[2020-10-16] MEDS: MIDODRINE HCL 2.5 MG TABLET 5 MG PO ×3 (11:35→17:49)
[2020-10-16] MEDS: SERTRALINE HCL 12.5 MG TABLET PO (11:35)
[2020-10-16] MEDS: PANTOPRAZOLE 40 MG TABLET PO (11:36)
[2020-10-16] MEDS: ATORVASTATIN 10 MG TABLET PO (11:36)
[2020-10-16] MEDS: lisinopriL 5 MG TABLET PO (11:36)
[2020-10-16] MEDS: FLUDROCORTISONE ACETATE 0.1 MG TABLET PO (11:36)
[2020-10-16] MEDS: TUBING, BLOOD PLUM PUMP TUBING 1 EACH XX ×3 (11:36→11:38)
--- NOTE | 2020-10-16 11:37 | PM.IMPN ---
Progress Note: A&P Assessment and Plan (1) Type 2 myocardial infarction due to anemia: Code(s): D64.9 - Anemia, unspecified; I21.A1 - Myocardial infarction type 2 Status: Acute (2) Acute on chronic anemia: Code(s): D64.9 - Anemia, unspecified Status: Acute Assessment and Plan: 10/16/20 11:37 patient 85-year-old male with several comorbidities and poor historian presented with chest pain is found to have anemia, upon arrival patient hemoglobin was 6.3 patient is given 2 units of pack RBC, patient also has significant elevated tropes 13.9, 18.7, 21.4 and 21.00, EKG showed sinus rhythm with nonspecific ST-T abnormality, patient seen by Cardiology does not suspect acute coronary syndrome most likely demand ischemia due to anemia and further ischemic workup is not recommended, however stool Hemoccult is negative, will continue to monitor and further recommendation to follow. patient also has lower extremity edema patient is being diuresed patient also echo showed normal ejection fraction, current echo is pending will follow and monitor (3) CHF exacerbation: Qualifiers: Heart failure type: unspecified Qualified Code(s): I50.9 - Heart failure, unspecified Code(s): I50.9 - Heart failure, unspecified Status: Acute Assessment and Plan: last echo showed normal systolic function, most likely secondary to anemia patient being diuresed will follow-up cardiac echo Additional Plan The patient has acute on chronic anemia. 2 units packed red blood cells ordered. Patient developed crackles during process of the 2nd unit of blood transfusion. IV Lasix 40 mg was provided. The patient has type 2 infarct due to his severe anemia. Blood transfusion as discussed above. Cardiology has been consulted. Patient has chronic B12 and a deficiency anemia but his B12 level is currently normal. He does have concomitant anemia of chronic disease. He had a 2 g drop in hemoglobin over the last 3 months suggesting likely anemia due to blood loss. Will check ferritin and stool for occult blood. Although ER reported that patient's stool occult blood was negative in the ER. Will continue home PPI therapy. Will repeat CBC and BMP in a.m.. After transfusion the patient's blood pressures were uncontrolled. I suspect this is partly due to volume overload status. Will continue Lasix b.i.d. and monitor. Subjective Date/time seen: 10/16/20 11:37 patient 85-year-old male with several comorbidities and poor historian presented with chest pain is found to have anemia, upon arrival patient hemoglobin was 6.3 patient is given 2 units of pack RBC, patient also has significant elevated tropes 13.9, 18.7, 21.4 and 21.00, EKG showed sinus rhythm with nonspecific ST-T abnormality, patient seen by Cardiology does not suspect acute coronary syndrome most likely demand ischemia due to anemia and further ischemic workup is not recommended, however stool Hemoccult is negative, will continue to monitor and further recommendation to follow. patient also has lower extremity edema patient is being diuresed patient also echo showed normal ejection fraction, current echo is pending will follow and monitor Review of Systems Review of Systems: ROS unobtainable: Yes unobtainable due to medical condition Exam Narrative: Exam Narrative: elderly frail Patient is comfortable, NAD HEENT: eyes are clear and none icteric LUNGS:CTA HEART: RR S1S2 ABD: BS+, Soft and nontender Lower extremities: no edema SKIN: nonjaundiced Neuro: unable to assess. Objective Data Vital Signs Vital Signs: Vital Signs - 24 hr 10/15/20 17:10 10/15/20 17:14 10/15/20 17:17 Temperature 98.2 F Pulse Rate 90 90 84 Respiratory Rate 16 20 Blood Pressure 161/72 H Pulse Oximetry 97 96 10/15/20 17:30 10/15/20 17:45 10/15/20 18:02 Temperature Pulse Rate 86 84 80 Respiratory Rate 21 H 21 H Blood Pressure Pulse Oximetry 94 96
[2020-10-16 14:17] LABS: Hematocrit 27.2 % (42.0-52.0); Hemoglobin 9.2 g/dL (14.0-18.0)
[2020-10-16] MEDS: QUEtiapine FUMARATE 25 MG TABLET BY MOUTH (17:47)
[2020-10-16 18:05] LABS: Hematocrit 27.5 % (42.0-52.0); Hemoglobin 9.3 g/dL (14.0-18.0)
[2020-10-17] VITALS (12 sets, daily range): BP systolic 138–158; BP diastolic 57–79; PULSE 73–96; RESP 12–24; TEMP 36–37.3; O2SAT 93–100
--- NOTE | 2020-10-17 | ECHO_ITS ---
Patient Info Name: Lico Calix Age: 85 years : 1935 Gender: Male Ht: 71 in Wt: 172 lbs BSA: 1.98 m2 HR: 79 bpm BP: 153 / 62 mmHg Heart Rhythm: Sinus Rhythm Exam Date: 10/17/2020 9:24 AM Exam Location: [facility] Pulmonary Patient Status: Inpatient Admit Date: 10/15/2020 Staff Ordering Physician: Pablo Marcum MD Director Institution: [facility], [facility] Attending Provider: Emma Anthony DO Exam Type: CA echo doppler color flow Study Info Indications R60.0 - Localized edema R06.02 - Shortness of breath Complete two-dimensional, color flow and Doppler transthoracic echocardiogram is performed. Strain analysis performed. Summary 1. Complete two-dimensional, color flow and Doppler transthoracic echocardiogram is performed. 2. Left ventricular chamber dimension is normal. 3. Left ventricular systolic function is normal, estimated at 50-55%. 4. There is a very small region of akinesia at the apex. 5. Left atrial chamber dimension is mildly enlarged. 6. Small amount of aortic and mitral insufficiency. 7. Compared to June of this year this exam suggests a very small region of apical akinesia, no other different. Left Ventricle Left ventricular chamber dimension is normal. Left ventricular systolic function is normal, estimated at 50-55%. There is mild concentric increased left ventricular wall thickness. The left ventricular diastolic function is grade I diastolic dysfunction. There is a very small region of akinesia at the apex. Right Ventricle Right ventricular chamber dimension is normal. Left Atria Left atrial chamber dimension is mildly enlarged. Right Atria Right atrial chamber dimension is normal. Aortic Valve The aortic valve is trileaflet. There is mild aortic valve sclerosis. There is mild aortic valve regurgitation. Pulmonic Valve The pulmonic valve is not well visualized. Mitral Valve The mitral valve has normal leaflets. There is mild mitral valve regurgitation. Tricuspid Valve The tricuspid valve leaflets are normal. Pericardium/Pleural The pericardium appears normal. Aorta The aortic root size at the sinus of Valsalva is normal. Left Ventricular Outflow Tract Name Value Normal LVOT 2D LVOT Diameter 1.9 cm LVOT Doppler LVOT Peak Gradient 4 mmHg LVOT Mean Gradient 2 mmHg LVOT VTI 22 cm LVOT VTI/AV VTI Ratio 0.6 LVOT Stroke Volume 62 ml LVOT CO 4.5 l/min LVOT CI 2.3 l/min/m2 Mitral Valve Name Value Normal MV Doppler MV Decel [place] 252 cm/s2 MV PHT 90 ms MV Area (PHT) 2.4 cm2 4.0-5.0
[2020-10-17 00:59] LABS: Hematocrit 26.1 % (42.0-52.0); Hemoglobin 8.8 g/dL (14.0-18.0)
[2020-10-17 05:41] LABS: Hematocrit 27.5 % (42.0-52.0); Hemoglobin 9.1 g/dL (14.0-18.0); Mean Corpuscular HGB Conc 33.1 g/dl (32-36); Mean Corpuscular Hemoglobin 31.6 pg (26-34); Mean Corpuscular Volume 95.5 fl (80-100); Mean Platelet Volume 10.9 fl (7.4-10.4); Platelet Count Result 294 k/mm3 (150-375); Red Blood Count 2.88 M/mm3 (4.6-6.20); Red Cell Distribution Width 17.6 % (11.5-14.5); White Blood Count 10.7 K/mm3 (4.5-10.0)
[2020-10-17 05:49] LABS: Anion Gap 8 mmol/L (8-16); Blood Urea Nitrogen 26 mg/dL (9-20); Calcium 8.9 mg/dL (8.4-10.2); Carbon Dioxide 32 mmol/L (22-30); Chloride 102 mmol/L (98-107); Estimated CRCL calculation 36 ml/min; Estimated Glomerular Filt Rate 48; Glucose 96 mg/dL (65-110); Magnesium 1.9 mg/dL (1.6-2.3); Potassium 3.5 mmol/L (3.4-5.0); Sodium 142 mmol/L (137-145)
--- NOTE | 2020-10-17 08:37 | PM.PNCARD ---
Progress Note: A&P Assessment and Plan (1) Type 2 myocardial infarction due to anemia: Code(s): D64.9 - Anemia, unspecified; I21.A1 - Myocardial infarction type 2 Status: Acute Assessment and Plan: 85-year-old male with systemic hypertension, orthostatic hypotension, moderate pulmonary hypertension, chronic macrocytic anemia, dyslipidemia, dementia. Patient admitted with chest pain, shortness of breath. Baseline functional status not clear. Patient found to have severe anemia with significant drop in the hemoglobin compared to his baseline chronic macrocytic anemia. Troponins are significantly elevated which are slightly trending downwards. EKG shows sinus rhythm with nonspecific ST-T abnormality. Recent echocardiogram showed normal LV systolic function. Troponin elevation likely secondary to profound anemia, although underlying CAD cannot be completely ruled out. Patient has DNR status. - hold antiplatelet treatment for now - evaluation of anemia as per primary team - patient is being diuresed for pulmonary edema - continue furosemide 40mg IV BID for now. - Repeat echocardiogram showed: - Normal LV size, mild LVH, sigmoid hypertrophy, normal LV systolic function, EF 55-60%; - normal diastolic function. - Normal mitral valve structure, mild MR. - Aortic valve sclerosis, mild aortic stenosis, aortic alve area 2 cm2, mild aortic regurgitation. - Trace TR, moderate pulmonary hypertension, RVSP 58 mmHg. Patient has DNR status with multiple comorbidities including what appears to be advanced dementia and severe anemia. Conservative cardiac management would be anticipated unless otherwise indicated. (2) Anemia: Code(s): D64.9 - Anemia, unspecified Status: Acute Assessment and Plan: transfuse PRBCs. Further evaluation of anemia as per primary team (3) CHF exacerbation: Qualifiers: Heart failure type: unspecified Qualified Code(s): I50.9 - Heart failure, unspecified Code(s): I50.9 - Heart failure, unspecified Status: Acute Assessment and Plan: diuresis with furosemide. Subjective Date/time seen: 10/17/20 08:37 Cardiology follow up for NSTEMI Date of service 10/17/2020: Patient Does not have any complaints today. Denies chest pain. Review of Systems Review of Systems: ROS unobtainable: Yes unobtainable due to mental status Exam Const: General: comfortable and no acute distress HENMT: Head: normal to inspection Eyes: General: appearance normal, both eyes and all related structures Neck: Neck: no JVD Resp: Effort & Inspection: normal respiratory effort Auscultation: clear to auscultation bilaterally and diminished lung sounds Cardio: Rate: regular rate Rhythm: regular rhythm Heart sounds: no murmurs GI: GI Palp: Yes Soft to palpation Auscultation: normal bowel sounds Skin: General skin exam: normal color Neuro: Cognition (Neuro): abnormal cognition Speech: normal speech Extrem: General: normal to inspection, no edema and no pedal edema Psych: Mental Status: mental status grossly abnormal Objective Data Vital Signs Vital Signs: Vital Signs - 24 hr 10/16/20 10:00 10/16/20 12:00 10/16/20 12:50 Temperature 36.4 C L Pulse Rate 101 H 92 92 Respiratory Rate 20 Blood Pressure 149/87 H Pulse Oximetry 95 94 10/16/20 14:00 10/16/20 16:00 10/16/20 17:22 Temperature 35.8 C L Pulse Rate 94 85 104 H Respiratory Rate 21 H Blood Pressure 171/88 H Pulse Oximetry 95 92 10/16/20 18:00 10/16/20 19:42 10/16/20 20:00 Temperature 36.2 C L Pulse Rate 103 H 90 84 Respiratory Rate 18 Blood Pressure 140/51 L Pulse Oximetry 94 94 10/16/20 22:00 10/16/20 23:53 10/17/20 00:00 Temperature 36.6 C Pulse Rate 76 90 85 Respiratory Rate 18 Blood Pressure 163/80 H Pulse Oximetry 95 95 10/17/20 02:00 10/17/20 04:00 10/17/20 06:00 Temperature 36.6 C Pulse Rate 84 96 95 Respiratory Ra
[2020-10-17] MEDS: PANTOPRAZOLE 40 MG TABLET PO (08:55)
[2020-10-17] MEDS: SERTRALINE HCL 12.5 MG TABLET PO (08:55)
[2020-10-17] MEDS: lisinopriL 5 MG TABLET PO (08:55)
[2020-10-17] MEDS: ATORVASTATIN 10 MG TABLET PO (08:55)
[2020-10-17] MEDS: FLUDROCORTISONE ACETATE 0.1 MG TABLET PO (08:55)
[2020-10-17] MEDS: MIDODRINE HCL 2.5 MG TABLET 5 MG PO ×2 (08:55→17:34)
[2020-10-17] MEDS: DONEPEZIL HCL 5 MG TABLET PO (08:55)
[2020-10-17] MEDS: FUROSEMIDE INJ 40 MG/4 ML VIAL IV PUSH ×2 (08:56→21:36)
--- NOTE | 2020-10-17 14:01 | P.CDI_ITS ---
CDI Query Clarification Request -CHF exacerbation has been documented -10/17 Echo summary: EF 50-55%; left ventricular grade 1 diastolic dysfunction Please futher specify type of CHF: * Systolic * Diastolic * Both Systolic and Diastolic * Unable to determine
--- NOTE | 2020-10-17 14:01 | WPDCDIQUERY2 ---
CDI Query Clarification Request -CHF exacerbation has been documented -10/17 Echo summary: EF 50-55%; left ventricular grade 1 diastolic dysfunction Please futher specify type of CHF: Systolic Diastolic Both Systolic and Diastolic Unable to determine
[2020-10-17] MEDS: QUEtiapine FUMARATE 25 MG TABLET BY MOUTH (17:34)
--- NOTE | 2020-10-17 17:50 | PM.IMPN ---
Progress Note: A&P Assessment and Plan (1) Type 2 myocardial infarction due to anemia: Code(s): D64.9 - Anemia, unspecified; I21.A1 - Myocardial infarction type 2 Status: Acute (2) Acute on chronic anemia: Code(s): D64.9 - Anemia, unspecified Status: Acute Assessment and Plan: 10/16/20 11:37 patient 85-year-old male with several comorbidities and poor historian presented with chest pain is found to have anemia, upon arrival patient hemoglobin was 6.3 patient is given 2 units of pack RBC, patient also has significant elevated tropes 13.9, 18.7, 21.4 and 21.00, EKG showed sinus rhythm with nonspecific ST-T abnormality, patient seen by Cardiology does not suspect acute coronary syndrome most likely demand ischemia due to anemia and further ischemic workup is not recommended, however stool Hemoccult is negative, will continue to monitor and further recommendation to follow. patient also has lower extremity edema patient is being diuresed patient also echo showed normal ejection fraction, current echo is pending will follow and monitor today patient remains clinically stable, patient had a cardiac echo patient has essential normal systolic and diastolic function, patient daughter is present in room answered all questions, plan is to discharge patient with home health. (3) CHF exacerbation: Qualifiers: Heart failure type: unspecified Qualified Code(s): I50.9 - Heart failure, unspecified Code(s): I50.9 - Heart failure, unspecified Status: Acute Assessment and Plan: last echo showed normal systolic function, most likely secondary to anemia patient being diuresed will follow-up cardiac echo Additional Plan The patient has acute on chronic anemia. 2 units packed red blood cells ordered. Patient developed crackles during process of the 2nd unit of blood transfusion. IV Lasix 40 mg was provided. The patient has type 2 infarct due to his severe anemia. Blood transfusion as discussed above. Cardiology has been consulted. Patient has chronic B12 and a deficiency anemia but his B12 level is currently normal. He does have concomitant anemia of chronic disease. He had a 2 g drop in hemoglobin over the last 3 months suggesting likely anemia due to blood loss. Will check ferritin and stool for occult blood. Although ER reported that patient's stool occult blood was negative in the ER. Will continue home PPI therapy. Will repeat CBC and BMP in a.m.. After transfusion the patient's blood pressures were uncontrolled. I suspect this is partly due to volume overload status. Will continue Lasix b.i.d. and monitor. Subjective Date/time seen: 10/17/20 17:50 patient 85-year-old male with several comorbidities and poor historian presented with chest pain is found to have anemia, upon arrival patient hemoglobin was 6.3 patient is given 2 units of pack RBC, patient also has significant elevated tropes 13.9, 18.7, 21.4 and 21.00, EKG showed sinus rhythm with nonspecific ST-T abnormality, patient seen by Cardiology does not suspect acute coronary syndrome most likely demand ischemia due to anemia and further ischemic workup is not recommended, however stool Hemoccult is negative, will continue to monitor and further recommendation to follow. patient also has lower extremity edema patient is being diuresed patient also echo showed normal ejection fraction, current echo is pending will follow and monitor. today patient remains clinically stable, patient had a cardiac echo patient has essential normal systolic and diastolic function, patient daughter is present in room answered all questions, plan is to discharge patient with home health. Review of Systems Review of Systems: ROS unobtainable: Yes unobtainable due to medical condition Exam Narrative: Exam Narrative: elderly frail Patient is comfortable, NAD HEENT: eyes are clear and none icteric LUNGS:CTA HEART: RR S1S2 ABD: BS+, Soft and no
--- NOTE | 2020-10-17 18:24 | PC.NURSE ---
This patient, Lico Calix, was transferred to [facility] on 10/17/20 at 1824. Personal belongings sent with patient. Report given to ELVIS Griffith. Appropriate documentation sent with patient.
--- NOTE | 2020-10-17 18:44 | PC.NURSE ---
This patient, Lico Calix, was received from [imu] on 10/17/20 at 1845. Patient/family oriented to unit policies and routines
[2020-10-18] VITALS (7 sets, daily range): BP systolic 71–156; BP diastolic 51–77; PULSE 69–87; RESP 18–20; TEMP 36.6–36.8; O2SAT 93–97
[2020-10-18 06:34] LABS: Hematocrit 29.4 % (42.0-52.0); Hemoglobin 9.8 g/dL (14.0-18.0); Mean Corpuscular HGB Conc 33.3 g/dl (32-36); Mean Corpuscular Hemoglobin 31.8 pg (26-34); Mean Corpuscular Volume 95.5 fl (80-100); Mean Platelet Volume 11.2 fl (7.4-10.4); Platelet Count Result 290 k/mm3 (150-375); Red Blood Count 3.08 M/mm3 (4.6-6.20); Red Cell Distribution Width 17.1 % (11.5-14.5); White Blood Count 8.6 K/mm3 (4.5-10.0)
[2020-10-18 06:48] LABS: Anion Gap 5 mmol/L (8-16); Blood Urea Nitrogen 30 mg/dL (9-20); Calcium 8.7 mg/dL (8.4-10.2); Carbon Dioxide 34 mmol/L (22-30); Chloride 101 mmol/L (98-107); Estimated CRCL calculation 36 ml/min; Estimated Glomerular Filt Rate 48; Glucose 93 mg/dL (65-110); Potassium 3.4 mmol/L (3.4-5.0); Sodium 140 mmol/L (137-145)
[2020-10-18] MEDS: DONEPEZIL HCL 5 MG TABLET PO (08:02)
[2020-10-18] MEDS: FLUDROCORTISONE ACETATE 0.1 MG TABLET PO (08:02)
[2020-10-18] MEDS: lisinopriL 5 MG TABLET PO (08:02)
[2020-10-18] MEDS: MIDODRINE HCL 2.5 MG TABLET 5 MG PO ×3 (08:02→17:24)
[2020-10-18] MEDS: SERTRALINE HCL 12.5 MG TABLET PO (08:02)
[2020-10-18] MEDS: ATORVASTATIN 10 MG TABLET PO (08:02)
[2020-10-18] MEDS: FUROSEMIDE INJ 40 MG/4 ML VIAL IV PUSH (08:03)
[2020-10-18] MEDS: PANTOPRAZOLE 40 MG TABLET PO (08:03)
--- NOTE | 2020-10-18 10:53 | PM.PNCARD ---
Progress Note: A&P Assessment and Plan (1) Type 2 myocardial infarction due to anemia: Code(s): D64.9 - Anemia, unspecified; I21.A1 - Myocardial infarction type 2 Status: Acute Assessment and Plan: 85-year-old male with systemic hypertension, orthostatic hypotension, moderate pulmonary hypertension, chronic macrocytic anemia, dyslipidemia, dementia. Patient admitted with chest pain, shortness of breath. Baseline functional status not clear. Patient found to have severe anemia with significant drop in the hemoglobin compared to his baseline chronic macrocytic anemia. Troponins are significantly elevated which are slightly trending downwards. EKG shows sinus rhythm with nonspecific ST-T abnormality. Recent echocardiogram showed normal LV systolic function. Troponin elevation likely secondary to profound anemia, although underlying CAD cannot be completely ruled out. Patient has DNR status. - hold antiplatelet treatment for now - evaluation of anemia as per primary team - acute on chronic anemia, was transfused - patient is being diuresed for pulmonary edema - shift furosemide 40mg IV p.o. for now. - Repeat echocardiogram showed: - Normal LV size, mild LVH, sigmoid hypertrophy, normal LV systolic function, EF 55-60%; - normal diastolic function. - Normal mitral valve structure, mild MR. - Aortic valve sclerosis, mild aortic stenosis, aortic alve area 2 cm2, mild aortic regurgitation. - Trace TR, moderate pulmonary hypertension, RVSP 58 mmHg. Patient has DNR status with multiple comorbidities including what appears to be advanced dementia and severe anemia. Conservative cardiac management would be anticipated unless otherwise indicated. (2) Anemia: Code(s): D64.9 - Anemia, unspecified Status: Acute Assessment and Plan: transfuse PRBCs. Further evaluation of anemia as per primary team (3) CHF exacerbation: Qualifiers: Heart failure type: unspecified Qualified Code(s): I50.9 - Heart failure, unspecified Code(s): I50.9 - Heart failure, unspecified Status: Acute Assessment and Plan: diuresis with furosemide. Subjective Date/time seen: 10/18/20 10:53 Cardiology follow-up for elevated troponins Date of service 10/18/2020: Patient is a little bit more alert today. He continues to deny chest pain, shortness of breath. Plan is for patient to be discharged home today with home health. Review of Systems Review of Systems: ROS unobtainable: Yes unobtainable due to mental status Cardiovascular: Cardiovascular: Denies chest pain, Denies pedal edema, Denies leg edema and Denies palpitations Psychiatric: Psychiatric: Reports confusion Exam Const: General: comfortable and no acute distress HENMT: Head: normal to inspection Eyes: General: appearance normal, both eyes and all related structures Neck: Neck: no JVD Resp: Effort & Inspection: normal respiratory effort Auscultation: clear to auscultation bilaterally and diminished lung sounds Cardio: Rate: regular rate Rhythm: regular rhythm Heart sounds: no murmurs GI: Auscultation: normal bowel sounds Skin: General skin exam: normal color Neuro: Cognition (Neuro): abnormal cognition Speech: normal speech Extrem: General: normal to inspection, no edema and no pedal edema Psych: Mental Status: mental status grossly abnormal Objective Data Vital Signs Vital Signs: Vital Signs - 24 hr 10/17/20 12:00 10/17/20 14:00 10/17/20 16:00 Temperature 36.6 C 36.6 C Pulse Rate 82 79 82 Respiratory Rate 20 24 H Blood Pressure 140/57 L 158/63 H Pulse Oximetry 100 100 10/17/20 18:50 10/17/20 21:48 10/17/20 23:11 Temperature 37.3 C 36.9 C Pulse Rate 76 73 Respiratory Rate 12 17 Blood Pressure 138/65 147/79 H Pulse Oximetry 95 95 94 10/18/20 05:35 Temperature 36.6 C Pulse Rate 69 Respiratory Rate 18 Blood Pressure 155/76 H Pulse Oximetry 97 Intake/Output Intake/Ou
--- NOTE | 2020-10-18 11:54 | PM.IMPN ---
Progress Note: A&P Assessment and Plan (1) Type 2 myocardial infarction due to anemia: Code(s): D64.9 - Anemia, unspecified; I21.A1 - Myocardial infarction type 2 Status: Acute (2) Acute on chronic anemia: Code(s): D64.9 - Anemia, unspecified Status: Acute Assessment and Plan: 10/16/20 11:37 patient 85-year-old male with several comorbidities and poor historian presented with chest pain is found to have anemia, upon arrival patient hemoglobin was 6.3 patient is given 2 units of pack RBC, patient also has significant elevated tropes 13.9, 18.7, 21.4 and 21.00, EKG showed sinus rhythm with nonspecific ST-T abnormality, patient seen by Cardiology does not suspect acute coronary syndrome most likely demand ischemia due to anemia and further ischemic workup is not recommended, however stool Hemoccult is negative, will continue to monitor and further recommendation to follow. patient also has lower extremity edema patient is being diuresed patient also echo showed normal ejection fraction, current echo is pending will follow and monitor today patient remains clinically stable, patient had a cardiac echo patient has essential normal systolic and diastolic function, patient daughter is present in room answered all questions, plan is to discharge patient with home health. (3) CHF exacerbation: Qualifiers: Heart failure type: unspecified Qualified Code(s): I50.9 - Heart failure, unspecified Code(s): I50.9 - Heart failure, unspecified Status: Acute Assessment and Plan: last echo showed normal systolic function, most likely secondary to anemia patient being diuresed will follow-up cardiac echo Additional Plan The patient has acute on chronic anemia. 2 units packed red blood cells ordered. Patient developed crackles during process of the 2nd unit of blood transfusion. IV Lasix 40 mg was provided. The patient has type 2 infarct due to his severe anemia. Blood transfusion as discussed above. Cardiology has been consulted. Patient has chronic B12 and a deficiency anemia but his B12 level is currently normal. He does have concomitant anemia of chronic disease. He had a 2 g drop in hemoglobin over the last 3 months suggesting likely anemia due to blood loss. Will check ferritin and stool for occult blood. Although ER reported that patient's stool occult blood was negative in the ER. Will continue home PPI therapy. Will repeat CBC and BMP in a.m.. After transfusion the patient's blood pressures were uncontrolled. I suspect this is partly due to volume overload status. Will continue Lasix b.i.d. and monitor. Subjective Date/time seen: 10/18/20 11:54 Interval history: he wants to go home today. more alert but still confused. he thinks it was floooding in the room last night, denies any chest pain or breathing issues. no fever, chills. Review of Systems Review of Systems: Narrative: - CONSTITUTIONAL: Denies weight loss, fever and chills. - HEENT: Denies changes in vision and hearing - RESPIRATORY: Denies SOB and cough. - CV: Denies palpitations and CP. - GI: Denies abdominal pain, nausea, vomiting and diarrhea. - : Denies dysuria and urinary frequency. - MSK: Denies myalgia and joint pain. - SKIN: Denies rash and pruritus. - NEUROLOGICAL: Denies headache and syncope. - PSYCHIATRIC: Denies recent changes in mood. Denies anxiety and depression. All systems reviewed & are unremarkable except as noted in HPI and below Constitutional: Constitutional: Reports fatigue and Reports weakness Neurologic: Reports weakness Endocrine: Endocrine: Reports fatigue Exam Narrative: Exam Narrative: elderly frail Patient is comfortable, NAD HEENT: eyes are clear and none icteric LUNGS:CTA HEART: RR S1S2 ABD: BS+, Soft and nontender Lower extremities: no edema SKIN: nonjaundiced Neuro: unable to assess. Objective Data Vital Signs Vital Signs: Vital Signs - 2
--- NOTE | 2020-10-18 14:18 | PM.DS ---
DS: Admitting Diagnosis Admitting Diagnosis shortness of breath DS: Discharge Diagnosis Discharge Diagnosis (1) Non-ST elevation ME (NSTEMI): Code(s): I21.4 - Non-ST elevation (NSTEMI) myocardial infarction Status: Acute (2) Anemia: Code(s): D64.9 - Anemia, unspecified Status: Acute (3) CHF (congestive heart failure): Code(s): I50.9 - Heart failure, unspecified Status: Acute (4) Acute on chronic anemia: Code(s): D64.9 - Anemia, unspecified Status: Acute Assessment and Plan: . (5) Type 2 myocardial infarction due to anemia: Code(s): D64.9 - Anemia, unspecified; I21.A1 - Myocardial infarction type 2 Status: Acute (6) Acute metabolic encephalopathy: Code(s): G93.41 - Metabolic encephalopathy Status: Acute (7) Generalized weakness: Code(s): R53.1 - Weakness Status: Acute (8) Diastolic dysfunction: Code(s): I51.89 - Other ill-defined heart diseases Status: Chronic (9) CHF exacerbation: Qualifiers: Heart failure type: unspecified Qualified Code(s): I50.9 - Heart failure, unspecified Code(s): I50.9 - Heart failure, unspecified Status: Acute Assessment and Plan: l (10) Acute encephalopathy: Code(s): G93.40 - Encephalopathy, unspecified Status: Acute DS: Summary Hospital Course Hospital Course: The patient 85-year-old male with several comorbidities and poor historian presented with chest pain is found to have anemia, upon arrival patient hemoglobin was 6.3 patient is given 2 units of pack RBC, patient also has significant elevated tropes 13.9, 18.7, 21.4 and 21.00, EKG showed sinus rhythm with nonspecific ST-T abnormality. Cardiology was consulted and thye suspect demand ischemia likely due to underlying anemia. and further ischemic workup is not recommend. stool hemoccult test is negative. He did have lower exremity edema fo which he was started on diuesis. ECHO wih apical hypokinesis noted , likely due to demand ischemia as well, along with normal systolic ad diastolic function. Patient has chronic [id number] anemia but his B12 level is currently normal. He does have concomitant anemia of chronic disease. He had a 2 g drop in hemoglobin over the last 3 months suggesting likely anemia due to blood loss. Will check ferritin and stool for occult blood. Although ER reported that patient's stool occult blood was negative in the ER. he was placed on PPI therapy. H and H was monitored thorughout the hospital stay and remained stable. he was switchte to lasix 40 mg po daily at [facility] [place]. He has hx of orthostatic hypotension, moderate pulmonary hypertensio, chronic marocytic anemia, dyslpidemia, dementia. 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 with advanced age, multiple comorbidiittes, DNR status, conservative cardiac mangement was planned by cardiology team. Status at Discharge Overall status at discharge: patient is progressing back to baseline Time Spent with Patient Time attestation: Total time spent providing and/or coordinating discharge services:45 mins Exam Narrative: Exam Narrative: elderly frail Patient is comfortable, NAD HEENT: eyes are clear and none icteric LUNGS:CTA, no respiratory distress HEART: RR S1S2 ABD: BS+, Soft and nontender Lower extremities: no edema SKIN: nonjaundiced, no rash Neuro: alert and oriented to place and person, not to time. DS: Data Data Completed and Pending Labs on day of discharge: Labs from last 24 hours 10/18/20 10/18/20 05:52 05:52 WBC 8.6 RBC 3.08 L Hgb 9.8 L Hct 29.4 L MCV 95.5 MCH 31.8 MCHC 33.3 RDW 17.1 H Plt Count 290 MPV 11.2 H Sodium 140 Potassium 3.4 Chloride 101 Carbon Dioxide 34 H Anion Gap 5 L BUN 30 H Creatinine 1.40 H Estim Creat Clear Calc 36 Estimated GFR 48 L Glucose 93 Calcium 8.7 Imaging Radiologist's impr
[2020-10-18] MEDS: QUEtiapine FUMARATE 25 MG TABLET BY MOUTH (17:24)
--- NOTE | 2020-10-18 19:39 | PM.IMPN ---
Progress Note: A&P Assessment and Plan (1) Non-ST elevation NM (NSTEMI): Code(s): I21.4 - Non-ST elevation (NSTEMI) myocardial infarction Status: Acute (2) Anemia: Code(s): D64.9 - Anemia, unspecified Status: Acute (3) CHF (congestive heart failure): Code(s): I50.9 - Heart failure, unspecified Status: Acute (4) Acute on chronic anemia: Code(s): D64.9 - Anemia, unspecified Status: Acute Assessment and Plan: . (5) Type 2 myocardial infarction due to anemia: Code(s): D64.9 - Anemia, unspecified; I21.A1 - Myocardial infarction type 2 Status: Acute (6) Acute metabolic encephalopathy: Code(s): G93.41 - Metabolic encephalopathy Status: Acute (7) Generalized weakness: Code(s): R53.1 - Weakness Status: Acute (8) Diastolic dysfunction: Code(s): I51.89 - Other ill-defined heart diseases Status: Chronic (9) CHF exacerbation: Qualifiers: Heart failure type: unspecified Qualified Code(s): I50.9 - Heart failure, unspecified Code(s): I50.9 - Heart failure, unspecified Status: Acute Assessment and Plan: l (10) Acute encephalopathy: Code(s): G93.40 - Encephalopathy, unspecified Status: Acute Additional Plan The patient 85-year-old male with several comorbidities and poor historian presented with chest pain is found to have anemia, upon arrival patient hemoglobin was 6.3 patient is given 2 units of pack RBC, patient also has significant elevated tropes 13.9, 18.7, 21.4 and 21.00, EKG showed sinus rhythm with nonspecific ST-T abnormality. Cardiology was consulted and thye suspect demand ischemia likely due to underlying anemia. and further ischemic workup is not recommend. stool hemoccult test is negative. He did have lower exremity edema fo which he was started on diuesis. ECHO wih apical hypokinesis noted , likely due to demand ischemia as well, along with normal systolic ad diastolic function. Patient has chronic [id number] anemia but his B12 level is currently normal. He does have concomitant anemia of chronic disease. He had a 2 g drop in hemoglobin over the last 3 months suggesting likely anemia due to blood loss. Will check ferritin and stool for occult blood. Although ER reported that patient's stool occult blood was negative in the ER. he was placed on PPI therapy. H and H was monitored thorughout the hospital stay and remained stable. he was switchte to lasix 40 mg po daily at [facility]. He has hx of orthostatic hypotension, moderate pulmonary hypertensio, chronic marocytic anemia, dyslpidemia, dementia. 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 with advanced age, multiple comorbidiittes, DNR status, conservative cardiac mangement was planned by cardiology team. Chronic orthostatic hypotension Syncopal episode at the time of discharge will monitor in telemetry. orthostatic vitals taken which was positive will hold his diuresis and recheck in the morning Subjective Date/time seen: 10/18/20 19:39 Interval history: patient was planned for the discharge however when he was moved to the wheelchair he passed out and was unresponsive for for approximately a minute. He recovered well and is back to his baseline following that. It with event discharge has been held and is monitored on telemetry Review of Systems Review of Systems: All systems reviewed & are unremarkable except as noted in HPI and below ( HPI) Exam Narrative: Exam Narrative: Exam Narrative: elderly frail Patient is comfortable, NAD HEENT: eyes are clear and none icteric LUNGS:CTA, no respiratory distress HEART: RR S1S2 ABD: BS+, Soft and nontender Lower extremities: no edema SKIN: nonjaundiced, no rash Neuro: alert and oriented to place and person, not to time. Objective Data Vital Signs Vital Signs: Vital Signs - 24 hr 10/17/20 21:48 10/17/20 23:11 10/18/20 05:35 Temperature 98
[2020-10-19] VITALS: PULSE 68
[2020-10-19 02:24] VITALS: BP 159/83; PULSE 88; RESP 20; O2SAT 99
[2020-10-19 05:53] VITALS: BP 141/50; PULSE 84; RESP 18; TEMP 36.7; O2SAT 95
[2020-10-19 06:39] LABS: Hematocrit 27.3 % (42.0-52.0); Hemoglobin 8.9 g/dL (14.0-18.0); Mean Corpuscular HGB Conc 32.6 g/dl (32-36); Mean Corpuscular Volume 95.1 fl (80-100); Mean Platelet Volume 10.7 fl (7.4-10.4); Platelet Count Result 284 k/mm3 (150-375); Red Blood Count 2.87 M/mm3 (4.6-6.20); Red Cell Distribution Width 16.7 % (11.5-14.5); White Blood Count 8.2 K/mm3 (4.5-10.0)
[2020-10-19 06:50] LABS: Anion Gap 5 mmol/L (8-16); Blood Urea Nitrogen 33 mg/dL (9-20); Calcium 8.5 mg/dL (8.4-10.2); Carbon Dioxide 32 mmol/L (22-30); Chloride 101 mmol/L (98-107); Estimated CRCL calculation 42 ml/min; Estimated Glomerular Filt Rate 57; Glucose 102 mg/dL (65-110); Sodium 138 mmol/L (137-145)
[2020-10-19 08:00] VITALS: PULSE 76
[2020-10-19] MEDS: MIDODRINE HCL 2.5 MG TABLET 5 MG PO (08:11)
[2020-10-19] MEDS: ATORVASTATIN 10 MG TABLET PO (08:11)
[2020-10-19] MEDS: SERTRALINE HCL 12.5 MG TABLET PO (08:12)
[2020-10-19] MEDS: DONEPEZIL HCL 5 MG TABLET PO (08:12)
[2020-10-19] MEDS: PANTOPRAZOLE 40 MG TABLET PO (08:12)
[2020-10-19] MEDS: FLUDROCORTISONE ACETATE 0.1 MG TABLET PO (08:12)
[2020-10-19] MEDS: OLANZapine 10 MG INJ VIAL 2.5 MG IM (10:03)
[2020-10-19] MEDS: POTASSIUM CHLORIDE 20 MEQ PACKET (FOR LIQUID) 40 MEQ PO (11:18)
[2020-10-19] MEDS: WATER, STERILE FOR INJECTION 10 ML VIAL XX (11:18)
--- NOTE | 2020-10-19 13:42 | PC.NURSE ---
0800 Patient refused to cooperate to get his orthostatic blood pressures.
--- NOTE | 2020-10-19 13:44 | PC.NURSE ---
Refused to cooperate with staff to get orthostatic blood pressure taken.
== END 2020-10-19 13:46 | disposition hospice, home (50) | DRG 811 ==
LOC: ANHED 19:01 → ANHIMU 10-16 07:37 → ANH3MEDSUR 10-18 09:01 → ANHIMU 10-21 13:51
PROVIDERS: Emergency Medicine; Family Medicine; Admitting Provider Internal Medicine; Emergency Provider General Practice; PCP Family Medicine; Visit Provider Internal Medicine
DX: D50.0 Iron deficiency anemia secondary to blood loss (chronic) (principal); I21.A1 Myocardial infarction type 2; G93.41 Metabolic encephalopathy; I13.0 Hypertensive heart and chronic kidney disease with heart failure and stage 1 through stage 4 chronic kidney disease, or unspecified chronic kidney disease; R19.7 Diarrhea, unspecified; Z66 Do not resuscitate; I50.9 Heart failure, unspecified; F03.90 Unspecified dementia, unspecified severity, without behavioral disturbance, psychotic disturbance, mood disturbance, and anxiety; E78.5 Hyperlipidemia, unspecified; N18.9 Chronic kidney disease, unspecified; K21.9 Gastro-esophageal reflux disease without esophagitis; K44.9 Diaphragmatic hernia without obstruction or gangrene; Z86.73 Personal history of transient ischemic attack (TIA), and cerebral infarction without residual deficits; E53.8 Deficiency of other specified B group vitamins; Z90.49 Acquired absence of other specified parts of digestive tract; R32 Unspecified urinary incontinence; D63.8 Anemia in other chronic diseases classified elsewhere; I95.1 Orthostatic hypotension; R45.1 Restlessness and agitation; I27.20 Pulmonary hypertension, unspecified; D53.9 Nutritional anemia, unspecified
CPT/HCPCS: 36415; 36430; 71046; 80048; 80076; 82607; 82728; 82746; 83540; 83550; 83735; 83880; 84484; 85014; 85018; 85025; 85027; 85610; 85730; 86850; 86900; 86901; 86920; 93005; 93306; 96374; 97161; 97165; 99215; 99285; A9270; G0463; J1940; J7050; P9016